=== PATIENT | male | born 1970 | race Caucasian/White ===

== ENCOUNTER → 2022-02-06 08:07 | Outpatient (CLI) | payer OTHER, SELFPAY ==
[2022-02-06 09:30] LABS: Hemoglobin A1C% w Est Avg Glu 11.4 % (4.0-6.0)
[2022-02-06 09:31] LABS: Hematocrit 45.1 % (41-53); Hemoglobin 15.7 g/dL (13.5-17.5); Mean Corpuscular HGB Conc 34.9 % (30-36); Mean Corpuscular Hemoglobin 29.8 PG (26-34); Mean Corpuscular Volume 85.2 fL (80-100); Platelet Count 203 X10^3/uL (150-400); Red Blood Cell Count 5.29 X10^6/uL (4.5-5.9); Red Cell Distribution Width 12.5 % (11.6-14.8); White Blood Cell Count 8.1 X10^3/uL (4.5-11.0)
[2022-02-06 09:54] LABS: Alanine Aminotransferase 21 IU/L (<50); Albumin Globulin Ratio 1.5 (1.0-2.8); Alkaline Phosphatase 84 U/L (38-126); Aspartate Aminotransferase 17 IU/L (17-59); BUN Creatinine Ratio 31.5 (6-22); Bilirubin Total 0.5 mg/dL (0.2-1.3); Blood Urea Nitrogen 23 mg/dL (9-20); Carbon Dioxide 30 mmol/L (22-32); Chloride 97 mmol/L (98-107); Cholesterol 181 mg/dL (140-199); Estimated Glomerular Filt Rate > 60 mL/min (>60); Globulin 2.6 g/dL (1.7-4.1); Glucose 309 mg/dL (70-100); HDL Cholesterol 40 mg/dL (40-60); HEMOLYSIS < 15 (0-50); LDL Cholesterol Calculated 122 mg/dL (<100); Potassium 4.3 mmol/L (3.4-5.1); Sodium 137 mmol/L (137-145); Total Protein 6.6 g/dL (6.3-8.2); Triglycerides 94 mg/dL (35-150)
[2022-02-06 09:57] LABS: Creatinine Urine Random 114.9 mg/dL
[2022-02-06 10:02] LABS: Microalbumi Creatinin Ratio Ur 99.2 ug/mg CR (<30); Microalbumin Urine Random 11.4 mg/dL (0-1.6)
[2022-02-06 10:15] LABS: TSH w/ Reflex to FT4 0.89 uIU/mL (0.47-4.68)
[2022-02-06 10:49] LABS: Neutrophils Absolute Manual 4536 /uL (3000-5900); Total Cells Counted 100
[2022-02-06 10:50] LABS: RBC Morphology Normal Morphology
== END ==
PROVIDERS: PCP Internal Medicine; Referring Provider Internal Medicine; Visit Provider Internal Medicine
DX: Z00.00 Encounter for general adult medical examination without abnormal findings (principal); E11.69 Type 2 diabetes mellitus with other specified complication; E78.2 Mixed hyperlipidemia; E78.5 Hyperlipidemia, unspecified; F41.1 Generalized anxiety disorder
CPT/HCPCS: 36415; 80053; 80061; 82043; 82570; 83036; 84153; 84443; 85025

== ENCOUNTER → 2022-04-07 09:39 | Outpatient (CLI) | payer OTHER, SELFPAY ==
[2022-04-07 11:33] LABS: COVID19 -Nasal RAPID Negative (Negative)
== END ==
PROVIDERS: PCP Internal Medicine; Visit Provider Surgery
DX: Z20.822 Contact with and (suspected) exposure to COVID-19 (principal); Z01.812 Encounter for preprocedural laboratory examination
CPT/HCPCS: 87635; C9803

== ENCOUNTER 2022-04-08 12:37 | Day surgery (SDC) | payer OTHER, SELFPAY ==
[2022-04-08 13:01] VITALS: BP 126/77; PULSE 96; RESP 16; TEMP 36.4; O2SAT 99; BMI 27.9
[2022-04-08] MEDS: LACTATED RINGERS 1,000 ML 200 ML IV (13:09)
--- NOTE | 2022-04-08 13:57 | PM.HP.1 ---
History of Present Illness History of Present Illness Date Patient Seen: 04/08/22 Time Patient Seen: 13:58 Chief complaint: SCREENING COLONOSCOPY Narrative: The patient presents for colorectal screening. They have never had any previous examination for such. No personal or family history of colon cancer. On further history denies any recent gastrointestinal symptoms. No nausea, vomiting, abdominal pain, loss of appetite, unexplained weight loss, change in bowel habits, diarrhea, constipation, melena, hematochezia, or bright red blood per rectum. Patient History Medical History (Updated 02/12/22 @ 08:04 by Chinedu Alvarez MD) Chronic low back pain DM type 2 with diabetic dyslipidemia Encounter for general adult medical examination without abnormal findings Generalized anxiety disorder Mixed hyperlipidemia Primary osteoarthritis involving multiple joints Tobacco use disorder Family & Social History Social History: household members significant other Tobacco & Substance use: Tobacco type cigarettes Smoking Status Current every day smoker alcohol intake current alcohol intake frequency a few times a month Substance Use Type does not use Meds Home Medications and Allergies Home Medications Medication Instructions Recorded Confirmed Type cholecalciferol (vitamin D3) 125 125 mcg PO DAILY 10/25/21 04/08/22 History mcg (5,000 unit) capsule mirtazapine 15 mg tablet 15 mg PO BEDTIME #90 tabs 10/25/21 04/08/22 Rx multivitamin 1 tab PO DAILY 10/25/21 04/08/22 History Glucometer #1 ea 02/12/22 02/12/22 Rx duloxetine 60 mg capsule,delayed 60 mg PO DAILY #90 caps 02/12/22 04/08/22 Rx release glucose test strip #100 ea 02/12/22 02/12/22 Rx insulin glargine 100 unit/mL (3 10 unit (0.1 mL) SUBCUT QPM #15 mL 02/12/22 04/08/22 Rx mL) subcutaneous pen (Basaglar KwikPen U-100 Insulin) meloxicam 15 mg tablet 15 mg PO DAILY #90 tabs 02/12/22 04/08/22 Rx rosuvastatin 10 mg tablet 10 mg PO DAILY #90 tabs 02/12/22 04/08/22 Rx methocarbamol 500 mg tablet 500 mg PO BID 04/08/22 04/08/22 History Allergies Allergy/AdvReac Type Severity Reaction Status Date / Time bee Allergy Severe swelling Uncoded 02/12/22 07:43 PENICILLIN Allergy Mild Rash Uncoded 02/12/22 07:43 metformin AdvReac Intermediate Cramping Uncoded 04/08/22 12:54 of the Muscles Exam Vital Signs (past 8 hours): - 04/08/22 13:01 Temperature 97.6 F Pulse Rate 96 H Respiratory Rate 16 Blood Pressure 126/77 Pulse Oximetry 99 Oxygen Delivery Method Room Air Oxygen Delivery Method Room Air Narrative Exam Narrative: General adult male alert oriented no acute distress Abdomen soft nontender nondistended Assessment & Plan Assessment & Plan narrative: The patient requires colorectal screening and colonoscopy is recommended. Technical details were discussed. Risks, benefits, alternatives explained. Risks including but not limited to myocardial infarction, aspiration, bleeding, pain, missed lesion, incomplete examination, need for further radiographic studies, colonic perforation, and need for major abdominal surgery were discussed. All questions were answered to their satisfaction, and they are in agreement with this plan. Time Spent With Patient Critical Care time: I spent a total of [] minutes of critical care time on this patient's care today; this time is exclusive of procedural time.
--- NOTE | 2022-04-08 13:59 | PM.OP.COLON ---
Operative Date/Time/Diagnoses Date of procedure: 04/08/22 Time of procedure: 13:59 Pre-op diagnosis: Colorectal screening Post-op diagnosis: same Procedure & Clinicians Study performed: Colonoscopy Same procedure as scheduled: Yes Indications: Screening Surgeon: Williams Lora Procedure Notes Procedure in detail: The history and physical was performed/updated and the patient is ASA class is 3. The procedure was discussed in detail with the patient. Potential risks complications including infection, bleeding, missed diagnosis, perforation, need for surgery, and were explained. Their questions were answered and informed consent was obtained. Patient was brought to the procedure room and placed standard monitoring equipment. The patient's vital signs were monitored continuously throughout the entire procedure. Prior to starting time-out was performed. The patient was placed in the left lateral recumbent position. Procedural sedation was administered by anesthesia. Examination began with a thorough inspection of the perianal area there was no evidence of fissures, fistulae, external hemorrhoids or cutaneous malignancy. The colonoscopy scope was then placed into the anal canal and was advanced to the cecum, which was identified by the ileocecal valve, the appendiceal orifice and the confluence of the taenia. The scope was then slowly withdrawn examining colon thoroughly in all directions, irrigating it of any residual stool. FINDINGS 1. Transverse colon-5 mm tubular adenomatous appearing polyp removed with cold snare. A despite extensive search polyp could not be located after was removed. The patient tolerated the procedure well. They will be discharged once criteria are met. The prep was of good/excellent quality. The withdrawl time was 12 minutes. Impression: Colonic polyp Post-procedure Recommendations: Colonoscopy in 5 years Disposition: same day surgery
[2022-04-08 14:41] VITALS: BP 101/64; PULSE 82; RESP 21; TEMP 37; O2SAT 98
[2022-04-08 14:46] VITALS: BP 109/64; PULSE 90; RESP 19; O2SAT 97
[2022-04-08 14:52] VITALS: BP 114/76; PULSE 89; RESP 15; O2SAT 97
[2022-04-08 14:54] VITALS: BP 114/66; PULSE 84; RESP 16; TEMP 36.7; O2SAT 98
== END 2022-04-08 15:20 | disposition home or self-care (01) ==
PROVIDERS: PCP Internal Medicine; Referring Provider Surgery; Visit Provider Surgery
PROC: 0DJD8ZZ Inspection of Lower Intestinal Tract, Via Natural or Artificial Opening Endoscopic (ICD-10-PCS; CPT 45378; principal; 2022-04-08 13:45)
DX: Z12.11 Encounter for screening for malignant neoplasm of colon (principal); K63.5 Polyp of colon
CPT/HCPCS: 45385; J2704; J3010

== ENCOUNTER → 2022-04-29 09:17 | Outpatient (CLI) | payer OTHER, SELFPAY ==
--- NOTE | 2022-05-01 09:55 | DIAB.MNT ---
Initial Diabetes Medical Nutrition Therapy Assessment Name: Dean Coon (Rubén) Date: 04/29/22 Time: [id number] Dx: Type II Diabetes Provider: Kim Montana presents today for initial visit. Endorses PMH of DM for about 20 years. +FH of DM with both parents. States he has made diet changes by cutting out most starches since seeing PCP. States he has historically had a very difficult time managing DM. Use to work with [employer] in [place]. States he was on multiple DM meds without getting BG under 150mg/dl fasting. Does not seem hopeful that numbers can be below this. Currently taking glargine 10u HS. Has h/o rxn to Metformin, muscle aches and fatigue. Has also tried actos, quick acting insulin. Denies most DM symptoms. Endorses good healing. However does reports reduced urination at night since starting insulin. Because he has limited symptoms of hyperglycemia, seems he is unclear about what the risks are of chronic hyperglycemia. This is especially true since he has had more symptoms with DM meds versus actual Dm. Reports switching to no sugar added ice cream. Avoids pasta and has reduced rice and corn portions. Long periods of fasting. Denies hunger during the day. Diet Recall: 730a: quiche or meat and veggies 530-545p: protein (fish/chx/beef/pork) with veggies, sometimes 1c brown rice mixed with quinoa 9p: no sugar added ice cream x 1c Beverages; 30-32oz water, sf mocha with 2% milk, diet pepsi x 20oz daily, sometimes sf gatorade. Anthropometrics: Ht: 6' Wt: 218# last PCP visit Physical Activity: No intentional exercise program. No plan to begin one. 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 reports [phone] steps per day or more 6-7 days per week with work. Self-Monitoring Blood Glucose: Checks FB-230s. no log book or meter for review. Reports a recent pc reading of 179mg/dl. Diabetes Medications: Glargine 10u HS Pertinent Labs: 02/2022 HgA1c 11.4% H ; LDL 122 H Past Medical History: (Last Updated 04/29/22 @ 15:35 by Chinedu Alvarez MD) Chronic low back pain DM type 2 with diabetic dyslipidemia Generalized anxiety disorder History of colonic polyps Mixed hyperlipidemia Primary osteoarthritis involving multiple joints Tobacco use disorder Nutrition Rx: Carbohydrates: Meal:45g Snack:15-30g Nutrition Diagnosis: - Inconsistent energy intake r/t long periods of fasting when working aeb diet recall - Nutrition and food related knowledge deficit r/t limited previous nutrition education aeb diet recall and pt report Intervention: This participant was very receptive. Provided appropriate educational handouts. Discussed the following topics: Completed intake assessment. Discussed barriers to care. Pathophysiology of T2DM HgA1c, its correlation to blood glucose numbers, and rationale for goal Importance of self-monitoring, how often, and when to check. Suggested checking at different times to evaluate meals Recommended servings for carbohydrates at meals and snacks Medication management: titration of insulin Role of physical activity and recommendations of [id number] steps per day Risks of hyperglycemia: heart health more specifically Created SMART goals for patient self-care and success. Goals: Discuss titration schedule with PCP, consider increasing by 2u q 2-3 days until BG <150 mg/dl Track BG and try checking some pc readings Follow-up: [facility] follow-up in 3-4 weeks Smita Alejandro RDN, [facility] Certified Diabetes Care and Run Boat Operator P: [phone] Thank you for this referral
== END ==
PROVIDERS: PCP Internal Medicine; Referring Provider Internal Medicine; Visit Provider Internal Medicine
DX: E11.9 Type 2 diabetes mellitus without complications (principal); Z79.4 Long term (current) use of insulin; Z71.3 Dietary counseling and surveillance
CPT/HCPCS: 97802

== ENCOUNTER → 2022-05-20 15:23 | Outpatient (CLI) | payer OTHER, SELFPAY ==
--- NOTE | 2022-06-03 07:13 | DIAB.FU ---
Addendum entered by Smita Alejandro 06/04/22 10:31: Phone check-in: up to 32u insulin and most FBG in the 150s. Plans to increase another 2u tonight. Encouraged continued titration until FBG at least under 150mg/dl. RDN follow-up in one month. Original Note: Follow-up Diabetes Education Assessment Name: Dean Coon (Rubén) Date: 05/20/22 Time: 330-430a Dx: Type II Diabetes Rubén presents for diabetes follow-up. Continues on moderate to low carb diet. Continues to have hyperglycemia. Following titration schedule for glargine and at 20-22u HS. Room for continued titration. Reports normal BM with low carb diet. On fiber supplement and incorporating veggies per report. Still having long periods of fasting during the day. Prefers this with work schedule. Has noticed improved frequent urination at night. Physical Activity: Active with work. No intentional exercise. use to work out at local gym twice per week with bike and resistance training. Stage of change considerations. Self-Monitoring Blood Glucose: no log book today but reports FBG now <230mg/dl. Frequently FBG are 190-220mg/dl. pc readings may range from 170-280 depending on carb intake. Diabetes Medications: Glargine 20-22u HS Pertinent Labs: 02/2022 HgA1c 11.4% H ; LDL 122 H Past Medical History: (Last Updated 04/29/22 @ 15:35 by Chinedu Alvaerz MD) Chronic low back pain DM type 2 with diabetic dyslipidemia Generalized anxiety disorder History of colonic polyps Mixed hyperlipidemia Primary osteoarthritis involving multiple joints Tobacco use disorder Intervention: This participant was very receptive. Provided appropriate educational handouts. Discussed the following topics: Recent blood sugar results and trends Medication management and cont titration, considerations for weight based calculations Review of general nutrition recommendations and current intake Physical activity plan history and considerations s/s of hyperglycemia, including polyuria Created SMART goals for patient self-care and success. Goals: Discuss titration schedule with PCP, consider increasing by 2u q 2-3 days until BG <150 mg/dl- met Track BG and try checking some pc readings- met Increase insulin tonight by 4u and cont titration schedule prn until <150mg/dl FBG- new Follow-up: RDN [facility] follow-up call in 2 weeks. Rubén would like to f/u in July. Will review BG over the phone and advise on titration to manage hyperglycemia until that time. Smita Alejandro RDN, [facility] Certified Diabetes Care and [employer]er P: [phone] Thank you for this referral
== END ==
PROVIDERS: PCP Internal Medicine; Referring Provider Internal Medicine; Visit Provider Internal Medicine
DX: E11.9 Type 2 diabetes mellitus without complications (principal); Z79.4 Long term (current) use of insulin; Z71.3 Dietary counseling and surveillance
CPT/HCPCS: G0108

== ENCOUNTER → 2022-07-24 14:58 | Outpatient (CLI) | payer OTHER, SELFPAY ==
--- NOTE | 2022-07-29 15:11 | DIAB.FU ---
Follow-up Diabetes Education Assessment Name: Dean Coon (Rubén) Date: 07/24/22 Time: 305-420p Dx: Type II Diabetes Provider: Kim Montana presents for DM follow-up. Reports continued elevated BG in the morning, higher than report from last phone call. Currently on 40u glargine at night and reports FBG of 160-180mg/dl. Given weight in kg, it would be appropriate to go up to about 50u before considering additional agents. Will message provider to confirm. Reports wt of 205-217#. Using 95kg x 0.5= 48units insulin. Reports continued low to moderate carb diet. Sometimes will have high carb diet, does not check postprandial and notices lower FBG. This could be a result of higher carb intake inhibiting overnight gluconeogenesis, impacting FBG. Open to CGM trial or rx. Encouraged trial first. Would be helpful to see trends, especially during the day. 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 No program for management but feels he is able to cope with current stressors. Physical Activity: No intentional exercise. Movement with work [phone] steps per day estimated. Self-Monitoring Blood Glucose: Forgot meter. Reports recent meter error messaging. Confirms he is providing enough blood sample. Asked that he bring his meter in next visit. Reports checking FB-180mg/dl most days. Diabetes Medications: Glargine 40u HS Pertinent Labs: 02/2022 HgA1c 11.4% H ; LDL 122 H Past Medical History: (Last Updated 04/29/22 @ 15:35 by Chinedu Alvarez MD) Chronic low back pain DM type 2 with diabetic dyslipidemia Generalized anxiety disorder History of colonic polyps Mixed hyperlipidemia Primary osteoarthritis involving multiple joints Tobacco use disorder Intervention: This participant was very receptive. Provided appropriate educational handouts. Discussed the following topics: Recent blood sugar results and trends Medication management and insulin titration based on weight Potential for CGM Review of general nutrition recommendations and current intake Gluconeogenesis and FBG Physical activity and impact on blood sugars Stress management and impact on BG Created SMART goals for patient self-care and success. Goals: Increase insulin tonight by 4u and cont titration schedule prn until <150mg/dl FBG- met and in progress Keep a food journal and BG log- new Follow-up: [facility] follow-up in September per pt request. He would like to come back after PCP appt end of August with new lab work. Will contact for CGM trial prn. Smita Alejandro RDN, [facility] Certified Diabetes Care and Missile Control Pilot P: [phone] Thank you for this referral
== END ==
PROVIDERS: PCP Internal Medicine; Referring Provider Internal Medicine; Visit Provider Internal Medicine
DX: E11.9 Type 2 diabetes mellitus without complications (principal); Z79.4 Long term (current) use of insulin; Z71.3 Dietary counseling and surveillance
CPT/HCPCS: G0108

== ENCOUNTER → 2022-08-15 10:57 | Outpatient (CLI) | payer OTHER, SELFPAY ==
--- NOTE | 2022-08-15 11:08 | DIAB.FU ---
Follow-up Diabetes Education Assessment Name: Dean Coon (Rubén) Date: 08/15/22 Time: 11a Dx: Type II Diabetes Today we placed a trial CGM. Rubén is using a Dexcom CGM. Set lows to 70mg/dl and highs to 250mg/dl. Reviewed how CGM system works, when to check BG with meter. States he is currently taking 48-49u of insulin at night and Bg are finally under 150mg/dl, ranging from 129-150mg/dl. States he skipped dinner the other night and BG was 100mg/dl fasting. Past Medical History: (Last Updated 04/29/22 @ 15:35 by Chinedu Alvarez MD) Chronic low back pain DM type 2 with diabetic dyslipidemia Generalized anxiety disorder History of colonic polyps Mixed hyperlipidemia Primary osteoarthritis involving multiple joints Tobacco use disorder Intervention: This participant was very receptive. Provided appropriate educational handouts. Discussed the following topics: Recent blood sugar results and trends Medication management Review of CGM use and precautions Goals: Keep a food journal and BG log- new Trial CGM system- new Follow-up: [facility] follow-up May for 1:1 visit. SHANNAN/ADOLFO will print and send PCP CGM reports prior to next visit. Smita Alejandro RDN, [facility] Certified Diabetes Care and Scrap Crane Operator P: [phone] Thank you for this referral
== END ==
PROVIDERS: Absent Provider Internal Medicine; Family Provider Internal Medicine; PCP Internal Medicine; Referring Provider Internal Medicine; Visit Provider Internal Medicine
DX: E11.9 Type 2 diabetes mellitus without complications (principal); Z79.4 Long term (current) use of insulin; Z71.3 Dietary counseling and surveillance
CPT/HCPCS: G0108

== ENCOUNTER → 2022-09-02 14:52 | Outpatient (CLI) | payer OTHER, SELFPAY ==
--- NOTE | 2022-09-04 09:48 | DIAB.MNTFU ---
Follow-up Diabetes Medical Nutrition Therapy Assessment Name: Dean Coon Date: 09/02/22 Time: 305-4p Dx: Type II Diabetes Rubén presents for diabetes follow-up. States he noticed certain foods impacting CGM results, however according to reports he is experiencing hyperglycemia most of the day. States as soon as he eats or drinks coffee, blood sugars start to go up. Reports coffee with milk and chocolate mix resulting in about 25g CHO per serving x 2 servings per day. Not particularly high in carb, but certainly seemed to impact BG. Has switched from milk to cream and almond milk. By the look of CGM results seems Rubén may need additional medication coverage, possibly mealtime insulin, which he has been on before. Likely was not on enough insulin previously since he states it was not effective. When discussing potential for further medication coverage prn, he reports he prefers to add insulin versus another medication with SE, ie GLP1RA. Started Jardiance as rx'd by provider. CGM trial finished. Open to personal CGM. RD to coordinate with PCP for rx. Reports provider discussed smoking cessation. Reports he smokes a pack per day but usually does not finish a cigarette. States he smokes when trying to problem solve for work. Stage of change seems to be between precontemplative and contemplative. Diet Recall: B: coffee with 12oz milk and 1 TBS roger mix (23g CHO), meat, rice x 1c, veg (45g CHO, total 68g CHO) OR coffee with cream/almond milk, roger mix with meat, rice, veg (53g CHO) L: coffee with milk or cream/almond milk and roger mix (8-23g CHO) D: pro, rice, veg (45-60g CHO) Anthropometrics: Ht: 6' Wt: 220# reported Physical Activity: no program. Active with work per report. Self-Monitoring Blood Glucose: Less checks since CGM d/c. Reports this morning FBG was 150mg/dl. Per reports BG mostly elevated, but seem to improve late evening and into dietary manager. 2 week CGM report 213mg/dl average TIR 28% very high 44% high 27% in range <1% low <1% very low Diabetes Medications: Jardiance 25mg Glargine 50u HS Pertinent Labs: 02/2022 HgA1c 11.4% H ; LDL 122 H Past Medical History: (Last Updated 08/29/22 @ 08:39 by Chinedu Alvarez MD) Chronic low back pain DM type 2 with diabetic dyslipidemia Generalized anxiety disorder History of colonic polyps Mixed hyperlipidemia Persistent proteinuria associated with type 2 diabetes mellitus Primary osteoarthritis involving multiple joints Tobacco use disorder Nutrition Rx: Carbohydrates: Meal:30-45g Snack:15-30g Nutrition Diagnosis: - Inconsistent energy intake r/t long periods of fasting when working aeb diet recall - Nutrition and food related knowledge deficit r/t limited label reading education aeb pt knowledge of CHO in coffee Intervention: This participant was very receptive. Provided appropriate educational handouts. Discussed the following topics: Blood sugar review and trends. Medication management: SE and precautions of different DM meds, potential for mealtime insulin if jardiance cannot reduce BG into goal CGM: moving forward with personal CGM Label reading Carbs recs Smoking cessation and impact on [place]/Stroke risk with Dm Created SMART goals for patient self-care and success. Goals: Keep a food journal and BG log- not met Trial CGM system- met Check FBG- new Avoid milk in coffee at this time- new Follow-up: [facility] follow-up in 4 weeks. SHANNAN/ADOLFO will coordinate with provider regarding personal CGM and our conversation regarding DM meds. Smita Alejandro RDN, [facility] Certified Diabetes Care and Security Architect P: [phone] Thank you for this referral
== END ==
LOC: DIET 14:53
PROVIDERS: Family Provider Internal Medicine; PCP Internal Medicine; Referring Provider Internal Medicine; Visit Provider Internal Medicine
DX: E11.9 Type 2 diabetes mellitus without complications (principal); Z71.3 Dietary counseling and surveillance; Z79.84 Long term (current) use of oral hypoglycemic drugs; Z79.4 Long term (current) use of insulin
CPT/HCPCS: 97803

== ENCOUNTER 2022-09-07 08:19 | Emergency (ER) | payer OTHER, SELFPAY ==
[2022-09-07] VITALS (10 sets, daily range): BP systolic 129–170; BP diastolic 71–86; PULSE 81–93; RESP 18; TEMP 36.6; O2SAT 96–99; BMI 29.8
--- NOTE | 2022-09-07 08:31 | ED_ITS ---
HPI - Extremity Problem General Chief complaint: Extremity Problem,Nontraumatic Stated complaint: rt hand swelling, shoulder pain Time Seen by Provider: 09/07/22 08:26 Source: patient, family, RN notes reviewed and old records reviewed History of Present Illness HPI Narrative: This is a 51-year-old male with insulin-dependent diabetes, hypertension dyslipidemia with acute on chronic right shoulder pain. Patient states he had surgery about 13 years ago for rotator cuff and then was found to have a PICC muscle tear which was not repaired. He states during his surgery there was some sort of vascular issue the vein was not working properly he states that he was seen by the vascular surgeon immediately postoperatively, he is unsure what they did to him but states they came into the room but did not require surgery or blood thinners afterwards. He states he was told it was the vein or the blood going back to his arm and that the arteries or the blood going to his arm was fine. Patient states he is had increasing pain for the last 3 weeks particularly with movement. He describes it as being over the anterior biceps, AC joint posterior shoulder running down his shoulder and radiating towards his distal arm. He states he woke up 2 days ago with some numbness and tingling of fingers 1 2 and 3 radiating down his arm he states that slowly improved but still feels a little bit different. Patient states it feels better when he lays on it than when he lays on his other side. 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 He is on Soma and meloxicam daily for the past several months. He saw his primary care physician about a week ago was prescribed voltBILLY uriarte and contacted him he was having trouble sleeping from pain this morning and was told to come in to be seen. He has had his meloxicam today as well as a dose of Tylenol. Denies any other prior surgeries. No known drug allergies. Does use tobacco daily, occasional alcohol, no illicit. He does not recall a very traumatic injuries recently. Accompanied by his . Related Data Home Medications Medication Instructions Recorded Confirmed cholecalciferol (vitamin D3) 125 125 mcg PO DAILY 10/25/21 08/29/22 mcg (5,000 unit) capsule multivitamin 1 tab PO DAILY 10/25/21 08/29/22 blood sugar diagnostic (OneTouch #10 ea 08/29/22 08/29/22 Verio test strips) insulin glargine 100 unit/mL (3 50 unit SUBCUT QPM 08/29/22 08/29/22 mL) subcutaneous pen (Basaglar KwikPen U-100 Insulin) Previous Rx's Medication Instructions Recorded mirtazapine 15 mg tablet 15 mg PO BEDTIME #90 tabs 10/25/21 Glucometer #1 ea 02/12/22 duloxetine 60 mg capsule,delayed 60 mg PO DAILY #90 caps 02/12/22 release meloxicam 15 mg tablet 15 mg PO DAILY #90 tabs 02/12/22 rosuvastatin 10 mg tablet 10 mg PO DAILY #90 tabs 02/12/22 sildenafil 50 mg tablet 50 mg PO DAILY PRN sexual activity 05/19/22 #30 tabs methocarbamol 500 mg tablet See Rx Instructions .Route 07/24/22 .COMPLEX #60 tabs empagliflozin 25 mg tablet 25 mg PO DAILY #90 tabs 08/29/22 (Jardiance) pen needle, diabetic, safety 31 #100 ea 08/29/22 gauge x 5/16 blood-glucose meter,continuous #1 ea 09/04/22 (Dexcom G7 Servicenow Administrator Developer) oxycodone 5 mg tablet 5 mg PO Q6H PRN pain #14 tabs 09/07/22 Allergies Allergy/AdvReac Type Severity Reaction Status Date / Time Penicillins Allergy Mild Rash Verified 09/07/22 09:01 metformin AdvReac Intermediate Muscle Verified 09/07/22 09:01 Cramps bee Allergy Severe swelling Uncoded 09/07/22 08:34 Review of Systems Review of Systems ROS Unobtainable: All systems reviewed & are unremarkable except as noted in HPI and below Patient History Medical History Chronic low back pain DM type 2 with diabetic dyslipidemia Generalized anxiety disorder History of colonic polyps Mixed hyperlipidemia Persistent proteinuria associated with type 2 diabetes mellitus Primary osteoarthritis involving multiple joints Tobacco use disorder Social History details: [place], 3 daughters, 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 HEENT: Head normocephalic, atraumatic, EOMI, pupils reactive, face symmetric, moist mucous membranes NECK: Supple, full range of motion CARDIOVASCULAR: Regular rate and rhythm without murmurs, rubs or gallops. RESPIRATORY: Breath sounds equal bilaterally, no wheezes rales or rhonchi. ABDOMEN: Soft, nontender. Normoactive bowel sounds all 4 quadrants. No guarding or rebound, rigidity, no mass : No CVA tenderness EXTREMITIES: Patient has some decreased with range of motion his shoulder full range of motion when shoulder is held low but has increased pain with flexion, extension and abduction, patient has normal adduction. 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 Patient has sensation to light touch throughout all 5 fingers and the arm. Patient's cap refills less than 2 seconds in all 5 fingers. 2+ radial pulses bilaterally. No discoloration such as erythema, warmth, cyanosis or pallor appreciated, no clubbing or edema. Neurovascularly intact. No cervical spine tenderness, full range of motion at the neck. NEUROLOGICAL: Cranial nerves II through XII grossly intact. Moving all extremities SKIN: Warm, dry, no petechiae, no rashes or lesions. Initial Vital Signs Initial Vital Signs: Vital Signs Pulse Rate 92 H 09/07/22 08:28 Pulse Oximetry 98 09/07/22 08:28 Course Orders Ordered: Discontinued Medications Oxycodone HCl (Oxycodone Ir 5 Mg Tablet) 5 mg PO NOW ONE Stop: 09/07/22 08:57 Last Admin: 09/07/22 09:30 Dose: 5 mg Documented By: NR Vital Signs Vital signs: Vital Signs - 8 hr 09/07/22 08:34 09/07/22 08:28 09/07/22 08:29 Temperature 97.8 F Pulse Rate 93 H 92 H Respiratory Rate 18 Blood Pressure 170/86 H 170/86 H Pulse Oximetry 99 98 Oxygen Delivery Method Room Air 09/07/22 08:29 09/07/22 08:30 09/07/22 08:31 Temperature Pulse Rate 90 88 Respiratory Rate Blood Pressure 152/74 H Pulse Oximetry 99 99 Oxygen Delivery Method 09/07/22 08:31 09/07/22 09:00 09/07/22 09:00 Temperature Pulse Rate 87 86 Respiratory Rate Blood Pressure 140/76 Pulse Oximetry 99 99 Oxygen Delivery Method 09/07/22 09:30 09/07/22 09:30 09/07/22 09:59 Temperature Pulse Rate 82 84 Respiratory Rate Blood Pressure 135/71 Pulse Oximetry 96 97 Oxygen Delivery Method 09/07/22 10:00 Temperature Pulse Rate Respiratory Rate Blood Pressure 148/78 H Pulse Oximetry Oxygen Delivery Method MDM - Extremity (Nontraumatic) Imaging Data Extremity x-ray #1: Radiologist's Impression: [address] [address] XRay Report Signed Patient: Dean Coon MR#: [id number] : 1970 Acct:[id number] Age/Sex: 51 / M Date of Service: 09/07/22 Loc: ED Accession Number: [id number] ?? Procedure: XR shoulder RT min 2V Ordering Provider: Marion Martin D.O. PROCEDURE:? XR SHOULDER RT MIN 2V ? INDICATIONS:? right shoulder pain, acute on chronic ? TECHNIQUE:? 3 views of the shoulder were acquired.? ? COMPARISON:? None. ? FINDINGS:? ? Bones:? Clavicular ORIF.? Hardware is intact without hardware fracture or periprosthetic lucency to suggest loosening.? There is good anatomic alignment.? Acromioclav icular narrowing.? No suspicious bony lesions.? Visualized ribs appear intact.? ? Soft tissues:? No suspicious soft tissue calcifications.? ? IMPRESSION:? No visualized acute fracture or dislocation. However, if clinical concern and/or pain persist, short interval imaging followup in 7-10 days is recommended, as occult injury cannot be definitively excluded. ? ? Dictated by: Rachna Bellamy M.D. on 09/07/2022 at 9:22 ? ? Approved by: Rachna Bellamy M.D. on 09/07/2022 at 9:23?? US - DVT: Radiologist's Impression: [address] [address] Ultrasound Report Signed Patient: Dean Coon MR#: [id number] : 1970 Acct:[id number] Age/Sex: 51 / M Date of Service: 09/07/22 Loc: ED Accession Number: [id number] ?? Procedure: US periph venous up extrem rt Ordering Provider: Marion Martin D.O. PROCEDURE:? US PERIPH VENOUS UP EXTREM RT ? INDICATIONS:? PAIN ? TECHNIQUE:? Real-time imaging, as well as color and pulse Doppler interrogation, was performed of the right upper extremity deep veins from the inferior neck to the antecubital fossa.? ? COMPARISON:? None. ? FINDINGS:? The internal jugular vein, visualized portions of the subclavian vein, axillary, and brachial veins are free of intraluminal thrombus.? Where physically possible, the veins are normally compressible.? Color and pulse Doppler demonstrate normal intraluminal flow, with expected phasicity and pulsatility.? Additional scanning of the cephalic and basilic veins of the superficial system demonstrate normal compressibility, without thrombus.? ? IMPRESSION:? No DVT identified within the right upper extremity ? ? Dictated by: Wayne Martins M.D. on 09/07/2022 at 9:11 ? ? Approved by: Wayne Martins M.D. on 09/07/2022 at 9:12?? MDM Narrative Medical decision making narrative: This is a 51-year-old male with acute on chronic shoulder pain. Patient has had remote history of rotator cuff repair and had some kind of vascular issue does not sound like he had surgery on whatever vascular issue he had he states does not think it was a blood clot he does not know exactly what. He does not know exactly what they did. He was not discharged home on any blood thinners or other medications and he states they did cut him or do any other obvious interventions but they brought a machine into the room and looked at it with the vascular surgeon. Patient most likely has acute on chronic musculoskeletal issues sounds like he has some nerve impingement maybe involving the brachial plexus he does not have any obvious swelling, edema or skin changes but because of his history DVT ultrasound was ordered. Shoulder x-ray for evaluation. GBS negative. X-ray does not show any acute changes to the bone discussed with patient will increase his pain management he is on an NSAID daily with meloxicam. Discussed PT maybe helpful but he states he had been through this in the past and does not feel it will help much. Patient to follow up with primary care and/or orthopedic surgery has will likely need follow-up with them as well, was given referral. Patient prefers local over his prior orthopedic surgery team. Discussed he may end up benefitting from an MRI as an outpatient. Discharge Plan Departure Patient Disposition: Home Clinical Impression: Pain in right shoulder, Radiculopathy of arm Activity Restrictions/Additional Instructions: Follow-up with your physician for recheck, you may need to follow-up with orthopedic surgery. You can also lead surgery on Thursday to set up follow-up either with your prior orthopedic surgeon or referral to the group included below. Please continue your home medications including your meloxicam. You can take Tylenol up to a 1000 mg every 6 hours as needed with this medication. You may take 1-2 tablets of oxycodone every 6 hours as needed for breakthrough pain. This medication can make you sleepy do not drive, perform hazardous activities or make any major decisions while taking it. This medication will make you constipated please take a stool softener once to twice daily until s tools are soft and regular. Prescription sent to [facility] in [place]. 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 Prescriptions: New oxycodone 5 mg tablet 5 mg PO Q6H PRN (Reason: pain) Qty: 14 0RF Rx Instructions: You may take 1-2 tablets every 6 hours as needed for pain. No Action sildenafil 50 mg tablet 50 mg PO DAILY PRN (Reason: sexual activity) Qty: 30 5RF Rx Instructions: administer 30 minutes to 4 hours before activity methocarbamol 500 mg tablet See Rx Instructions .ROUTE .COMPLEX Qty: 60 5RF Dose Instruction: TAKE 1 TABLET BY MOUTH FOUR TIMES DAILY NEEDED FOR SPASMS Rx Instructions: TAKE 1 TABLET BY MOUTH FOUR TIMES DAILY NEEDED FOR SPASMS (DME) Dexcom G7 Servicenow Administrator Developer Misc See Rx Instructions .Route Qty: 1 0RF Rx Instructions: As directed (DME) OneTouch Verio test strips Strip See Rx Instructions .ROUTE .MEDSUPPLY Qty: 10 Rx Instructions: As directed once daily to check blood glucose insulin glargine [Basaglar KwikPen U-100 Insulin] 100 unit/mL (3 mL) insulin pen 50 unit SUBCUT QPM Jardiance 25 mg tablet 25 mg PO DAILY Qty: 90 3RF (DME) pen needle, diabetic, safety 31 gauge x 5/16 needle See Rx Instructions .Route Qty: 100 3RF Rx Instructions: As directed to use for insulin injection daily multivitamin Tablet 1 tab PO DAILY cholecalciferol (vitamin D3) 125 mcg (5,000 unit) capsule 125 mcg PO DAILY mirtazapine 15 mg tablet 15 mg PO BEDTIME Qty: 90 3RF duloxetine 60 mg capsule,delayed release(DR/EC) 60 mg PO DAILY Qty: 90 3RF meloxicam 15 mg tablet 15 mg PO DAILY Qty: 90 3RF rosuvastatin 10 mg tablet 10 mg PO DAILY Qty: 90 3RF (DME) Glucometer See Rx Instructions .Route .MEDSUPPLY Qty: 1 0RF Rx Instructions: As directed Referrals: Evie Choe MD [Physician] - Chinedu Alvarez MD [Primary Care Provider] - Stand Alone Forms: Patient Portal/API
--- NOTE | 2022-09-07 08:56 | DI.RAD.S_ITS ---
PROCEDURE: XR SHOULDER RT MIN 2V INDICATIONS: right shoulder pain, acute on chronic TECHNIQUE: 3 views of the shoulder were acquired. COMPARISON: None. FINDINGS: Bones: Clavicular ORIF. Hardware is intact without hardware fracture or periprosthetic lucency to suggest loosening. There is good anatomic alignment. Acromioclavicular narrowing. No suspicious bony lesions. Visualized ribs appear intact. Soft tissues: No suspicious soft tissue calcifications. IMPRESSION: No visualized acute fracture or dislocation. However, if clinical concern and/or pain persist, short interval imaging followup in 7-10 days is recommended, as occult injury cannot be definitively excluded. Dictated by: Rachna Bellamy M.D. on 09/07/2022 at 9:22 Approved by: Rachna Bellamy M.D. on 09/07/2022 at 9:23
--- NOTE | 2022-09-07 08:56 | DI.US.S_ITS ---
PROCEDURE: US PERIPH VENOUS UP EXTREM RT INDICATIONS: PAIN TECHNIQUE: Real-time imaging, as well as color and pulse Doppler interrogation, was performed of the right upper extremity deep veins from the inferior neck to the antecubital fossa. COMPARISON: None. FINDINGS: The internal jugular vein, visualized portions of the subclavian vein, axillary, and brachial veins are free of intraluminal thrombus. Where physically possible, the veins are normally compressible. Color and pulse Doppler demonstrate normal intraluminal flow, with expected phasicity and pulsatility. Additional scanning of the cephalic and basilic veins of the superficial system demonstrate normal compressibility, without thrombus. IMPRESSION: No DVT identified within the right upper extremity Dictated by: Wayne Martins M.D. on 09/07/2022 at 9:11 Approved by: Wayne Martins M.D. on 09/07/2022 at 9:12
[2022-09-07] MEDS: OXYCODONE IR 5 MG TABLET PO (09:30)
== END 2022-09-07 10:51 | disposition home or self-care (01) ==
PROVIDERS: Emergency Provider Emergency Medicine; Family Provider Internal Medicine; PCP Internal Medicine
DX: M25.511 Pain in right shoulder (principal); M54.10 Radiculopathy, site unspecified
CPT/HCPCS: 73030; 93971; 99283; 99284

== ENCOUNTER → 2022-09-30 15:30 | Outpatient (CLI) | payer OTHER, SELFPAY ==
--- NOTE | 2022-10-03 17:08 | DIAB.FU ---
Follow-up Diabetes Education Assessment Name: Dean Coon Date: 09/30/22 Time: 147-469p Dx: Type II Diabetes Provider: Kim Montana presents for Dm education follow-up. Continues to wear CGM, and results indicate consistent hyperglycemia after meals, even lower carb meals. taking 50u Glargine and 25mg Jardiance. FBG often under 150mg/dl, however after eating any carbohydrates number increase to 300-400mg/dl. He has h/o multiple insulin injections per day. He is open to adding mealtime insulin if provider agrees. States he would prefer insulin over other meds with side effects. RD will message provider for guidance and share CGM report results. Rubén thinks when he eats protein alone his BG is better, however there are certain carb foods he is not wanting to give up, ie coffee with flavoring resulting in 25g CHO per serving. Reports foot ulcer, likely r/t hyperglycemia. States he doesn't understand why he has this ulcer despite improved BG. BG continue above goal despite improvement. Self-Monitoring Blood Glucose: Improved time in range, however still below goal of 70% in range. Today: 2 week CGM report 206mg/dl average TIR 25% very high 34% high 40% in range <1% low <0% very low Last visit: 2 week CGM report 213mg/dl average TIR 28% very high 44% high 27% in range <1% low <1% very low Diabetes Medications: Jardiance 25mg Glargine 50u HS Pertinent Labs: 02/2022 HgA1c 11.4% H ; LDL 122 H Past Medical History: (Last Updated 09/26/22 @ 16:44 by Chinedu Alvarez MD) Chronic low back pain Diabetic ulcer of toe associated with type 2 diabetes mellitus DM type 2 with diabetic dyslipidemia Generalized anxiety disorder History of colonic polyps Mixed hyperlipidemia Persistent proteinuria associated with type 2 diabetes mellitus Primary osteoarthritis involving multiple joints Tobacco use disorder Intervention: This participant was very receptive. Provided appropriate educational handouts. Discussed the following topics: Recent blood sugar results and trends Time in range goal Medication management: different DM med options, insulin actions and indications Review of general nutrition recommendations and current intake Impact of persistent hyperglycemia and complications Created SMART goals for patient self-care and success. Goals: Check FBG- d/c due to using CGM Avoid milk in coffee at this time- met Choose low carb options at this time- new Follow-up: [facility] follow-up in 2-[address]/ADOLFO to coordinate with provider regarding CGM results. Smita Alejandro RDN, ADOLFO Certified Diabetes Care and Warehouser P: [phone] Thank you for this referral
== END ==
PROVIDERS: Family Provider Internal Medicine; PCP Internal Medicine; Referring Provider Internal Medicine; Visit Provider Internal Medicine
DX: E11.9 Type 2 diabetes mellitus without complications (principal); Z79.4 Long term (current) use of insulin; Z79.84 Long term (current) use of oral hypoglycemic drugs; Z71.3 Dietary counseling and surveillance
CPT/HCPCS: G0108

== ENCOUNTER → 2022-10-04 09:45 | Outpatient (CLI) | payer OTHER, SELFPAY ==
--- NOTE | 2022-10-04 09:46 | DI.MRI.S_ITS ---
PROCEDURE: MR SHOULDER RT WO CON INDICATIONS: right shoulder pain TECHNIQUE: Noncontrast oblique coronal T2 fast spin echo with fat saturation, oblique sagittal T1 spin echo and T2 fast spin echo with fat saturation, axial T1 spin echo and T2 fast spin echo with fat saturation through the shoulder. COMPARISON: [facility], CR, XR SHOULDER RT MIN 2V, 09/07/2022, 8:56. FINDINGS: Image quality: Images are mildly degraded by metal artifact related to distal clavicular orthopedic hardware. Diagnostic information is obtained. Rotator cuff: Low-grade partial intrasubstance tearing of the supraspinatus tendon is seen at the distal insertion measuring 5 mm in anterior-posterior dimension superimposed on chronic tendinosis. There is also low-grade partial articular sided tearing of the infraspinatus tendon at the mid to posterior footprint superimposed on chronic tendinosis. The teres minor tendon is intact. Subscapularis tendon demonstrates mild tendinosis and low-grade intrasubstance tearing at the distal insertion. There is no significant rotator cuff muscle atrophy. Bones and bursae: Postsurgical changes are seen from prior internal fixation of the distal clavicle with associated metal artifact that mildly obscures adjacent structures. No acute trabecular bone injury or fracture. Glenohumeral articular cartilages are not well evaluated on this exam. There is mild degenerative spurring in the glenoid rim. Moderate degenerative changes are seen at the acromioclavicular joint. A trace amount of subacromial/subdeltoid bursal fluid is present. No significant glenohumeral joint effusion. Capsule and soft tissues: Nondisplaced tearing of the posterosuperior labrum with a lobular paralabral cyst extending medially over the glenoid rim to the region of the suprascapular notch. The cyst measures approximately the 7 x 6 x 30 mm. No denervation changes are seen within the supraspinatus or infraspinatus muscle. The proximal biceps long head tendon is intact. There is partial effacement of the normal fat signal in the rotator interval. Mild thickening of the anterior band of the inferior glenohumeral ligament is noted. IMPRESSION: 1. Nondisplaced tearing of the posterosuperior labrum with a lobular paralabral cyst extending medially over the glenoid rim to the suprascapular notch. No signs of acute or chronic denervation changes within the supraspinatus or infraspinatus muscles. 2. Low-grade partial intrasubstance tearing of the supraspinatus tendon at the distal insertion superimposed on moderate tendinosis. 3. Low-grade partial articular sided tearing of the infraspinatus tendon at the mid to posterior insertion superimposed on moderate tendinosis. 4. Mild tendinosis and low-grade partial intrasubstance tearing of the subscapularis tendon at the distal insertion. 5. Moderate acromioclavicular joint osteoarthrosis. Postsurgical changes are seen in the distal clavicle with associated metal artifact that mildly obscures adjacent structures. 6. Partial effacement of the rotator interval fat and mild thickening of the inferior glenohumeral ligament are nonspecific, but can be seen in the setting of the clinical syndrome of adhesive capsulitis. Approved by: Marcos Lozano M.D. on 10/06/2022 at 8:45
== END ==
PROVIDERS: Family Provider Internal Medicine; PCP Internal Medicine; Referring Provider Internal Medicine; Visit Provider Internal Medicine
DX: S43.491A Other sprain of right shoulder joint, initial encounter (principal); M75.111 Incomplete rotator cuff tear or rupture of right shoulder, not specified as traumatic; S46.811A Strain of other muscles, fascia and tendons at shoulder and upper arm level, right arm, initial encounter; M19.011 Primary osteoarthritis, right shoulder
CPT/HCPCS: 73221

== ENCOUNTER 2022-10-06 19:06 | Inpatient (IN) | payer OTHER, SELFPAY ==
[2022-10-06 19:20] VITALS: BP 154/77; PULSE 89; RESP 16; TEMP 37; O2SAT 99; BMI 29.0
--- NOTE | 2022-10-06 19:47 | DI.RAD.S_ITS ---
PROCEDURE: XR FOOT RT MIN 3V INDICATIONS: diabetic foot infection, concern for osteomyelitis TECHNIQUE: 3 views of the foot were acquired. COMPARISON: None. FINDINGS: Bones: No fractures or dislocations. No discrete bony erosions or periosteal reaction. No suspicious bony lesions. Soft tissues: There is soft tissue swelling of the great toe. No suspicious soft tissue calcifications. No discrete soft tissue gas. IMPRESSION: 1. No definite radiographic evidence of osteomyelitis. If clinical concern persists, further evaluation may be obtained with MRI. Dictated by: Curtis Alejandre M.D. on 10/06/2022 at 20:32 Approved by: Curtis Alejandre M.D. on 10/06/2022 at 20:33
[2022-10-06 20:29] LABS: Add Manual Diff / Slide Review NO; Basophils Absolute Auto 100 /uL (0-100); Basophils Percent Auto 0.7 % (0-2); Eosinophils Absolute Auto 300 /uL (0-450); Eosinophils Percent Auto 2.8 % (2-4); Hematocrit 42.8 % (41-53); Hemoglobin 14.9 g/dL (13.5-17.5); Lymphocytes Absolute Auto 2100 /uL (1100-4500); Lymphocytes Percent Auto 18.8 % (25-40); Mean Corpuscular HGB Conc 34.9 % (30-36); Mean Corpuscular Hemoglobin 29.8 PG (26-34); Mean Corpuscular Volume 85.3 fL (80-100); Monocytes Absolute Auto 800 /uL (0-900); Monocytes Percent Auto 7.2 % (3-14); Neutrophils Absolute Auto 7900 /uL (1500-7000); Neutrophils Percent Auto 70.5 % (50-75); Platelet Count 217 X10^3/uL (150-400); Red Blood Cell Count 5.02 X10^6/uL (4.5-5.9); Red Cell Distribution Width 12.8 % (11.6-14.8); White Blood Cell Count 11.2 X10^3/uL (4.5-11.0)
[2022-10-06 20:53] LABS: Alanine Aminotransferase 34 IU/L (<50); Albumin 4.3 g/dL (3.5-5.0); Albumin Globulin Ratio 1.4 (1.0-2.8); Alkaline Phosphatase 72 U/L (38-126); Aspartate Aminotransferase 23 IU/L (17-59); BUN Creatinine Ratio 26.9 (6-22); Bilirubin Total 0.5 mg/dL (0.2-1.3); Blood Urea Nitrogen 21 mg/dL (9-20); Calcium 9.2 mg/dL (8.4-10.2); Carbon Dioxide 32 mmol/L (22-32); Chloride 100 mmol/L (98-107); Estimated Glomerular Filt Rate > 60 mL/min (>60); Globulin 3.1 g/dL (1.7-4.1); Glucose 145 mg/dL (70-100); HEMOLYSIS < 15 (0-50); Potassium 3.9 mmol/L (3.4-5.1); Sodium 139 mmol/L (137-145); Total Protein 7.4 g/dL (6.3-8.2)
[2022-10-06] MEDS: OXYCODONE IR 5 MG TABLET 10 MG PO (21:00)
[2022-10-06 21:02] VITALS: PULSE 92; O2SAT 96
[2022-10-06 21:03] VITALS: BP 164/78; PULSE 90; O2SAT 97
--- NOTE | 2022-10-06 21:57 | ED.WOUNDLAC ---
HPI - Wound/Laceration General Chief Complaint: Wound/Laceration Stated Complaint: Infection in foot Time Seen by Provider: 10/06/22 19:47 Source: patient Mode of arrival: Family Vehicle History of Present Illness HPI narrative: 51-year-old gentleman with a history of diabetes, peripheral neuropathy and ulceration of the left great toe. He has been on Keflex for the last couple of days and is noticing that the toe is continuing to have erythema, swelling, increasing tenderness and now there is some slight lymphangitic streaking up the calf with edema extending over the dorsum of the foot. He reports no fevers, cough, chills. No dyspnea or chest pain. Related Data Home Medications Medication Instructions Recorded Confirmed cholecalciferol (vitamin D3) 125 125 mcg PO DAILY 10/25/21 09/26/22 mcg (5,000 unit) capsule multivitamin 1 tab PO DAILY 10/25/21 09/26/22 blood sugar diagnostic (OneTouch #10 ea 08/29/22 09/26/22 Verio test strips) insulin glargine 100 unit/mL (3 50 unit SUBCUT QPM 08/29/22 09/26/22 mL) subcutaneous pen (Basaglar KwikPen U-100 Insulin) Previous Rx's Medication Instructions Recorded mirtazapine 15 mg tablet 15 mg PO BEDTIME #90 tabs 10/25/21 Glucometer #1 ea 02/12/22 duloxetine 60 mg capsule,delayed 60 mg PO DAILY #90 caps 02/12/22 release meloxicam 15 mg tablet 15 mg PO DAILY #90 tabs 02/12/22 rosuvastatin 10 mg tablet 10 mg PO DAILY #90 tabs 02/12/22 sildenafil 50 mg tablet 50 mg PO DAILY PRN sexual activity 05/19/22 #30 tabs methocarbamol 500 mg tablet See Rx Instructions .Route 07/24/22 .COMPLEX #60 tabs empagliflozin 25 mg tablet 25 mg PO DAILY #90 tabs 08/29/22 (Jardiance) pen needle, diabetic, safety 31 #100 ea 08/29/22 gauge x 16 blood-glucose meter,continuous #1 ea 09/04/22 (Dexcom G7 Coating Mixer Supervisor) blood-glucose sensor (Dexcom G7 #9 ea 09/10/22 Sensor device) cephalexin 500 mg capsule 500 mg PO TID #21 caps 10/06/22 oxycodone 5 mg tablet 5 mg PO Q6H PRN pain #20 tabs 10/06/22 Allergies Allergy/AdvReac Type Severity Reaction Status Date / Time Penicillins Allergy Mild Rash Verified 10/06/22 20:57 metformin AdvReac Intermediate Muscle Verified 10/06/22 20:57 Cramps bee Allergy Severe swelling Uncoded 09/26/22 15:26 Review of Systems Review of Systems Narrative: Pertinent positive and negative findings as per HPI Patient History Medical History Chronic low back pain Degenerative tear of glenoid labrum of right shoulder Diabetic ulcer of toe associated with type 2 diabetes mellitus DM type 2 with diabetic dyslipidemia Generalized anxiety disorder History of colonic polyps Mixed hyperlipidemia Persistent proteinuria associated with type 2 diabetes mellitus Primary osteoarthritis involving multiple joints Tobacco use disorder 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 History 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 Able to give a complete and coherent history. Well-nourished well-developed HEENT: Moist mucous membranes, normal sclera with reactive pupils, Respiratory: Lungs are clear to auscultation, no wheezing no rales no rhonchi. Full and symmetrical air movement Cardiac: Regular rate and rhythm no murmurs no bruits Abdomen: Soft, nontender, good bowel tones, no flank pain Skin: Warm and dry, no rashes Neurologic: Grossly neurologically intact with no obvious asymmetries or abnormalities Extremities: Left great toe with ulceration on the plantar surface of the toe surrounding skin no significant drainage mild erythema extending beyond the wound now with edema also to the dorsum of the foot and lymphangitic streaking up the anterior brower. There is no inguinal adenopathy Psych: Cooperative, appropriate insight and affect Course Orders Ordered: ED Orders 10/07/22 04:06 Basic Metabolic Panel Routine Complete Blood Count AUTO DIFF Routine Acetaminophen (Acetaminophen 325 Mg Tablet) 650 mg PO Q6H PRN PRN Reason: Fever/Mild Pain (1-3) Heparin Sodium (Porcine) (Heparin 5,000 Unit/Ml Vial) 5,000 unit SUBCUT BID [facility] Cefepime HCl 1 gm/ Sodium (Chloride) 100 mls @ 200 mls/hr IV Q12H BJ Naloxone HCl (Naloxone 0.4 Mg/Ml Vial) 0.2 mg IV Q2MIN PRN PRN Reason: Opiate Reversal Ondansetron HCl (Ondansetron 4 Mg/2 Ml Inj) 4 mg IV Q8HR PRN PRN Reason: Nausea And Vomiting Oxycodone HCl (Oxycodone Ir 5 Mg Tablet) 5 mg PO Q4H PRN PRN Reason: Pain, Moderate (4-6) Discontinued Medications Hydromorphone HCl (Hydromorphone 0.5 Mg Inj) 0.5 mg IV Q15MIN PRN PRN Reason: Pain, Hydromorphone HCl (Hydromorphone 1 Mg Inj) 1 mg IV NOW ONE Stop: 10/06/22 22:18 Last Admin: 10/06/22 22:33 Dose: 1 mg Documented By: FREDERICK Cefepime HCl 2 gm/ Sodium (Chloride) 100 mls @ 200 mls/hr IV NOW ONE Stop: 10/06/22 22:18 Last Infusion: 10/06/22 23:14 Dose: 0 mls/hr Documented By: Admin: 10/06/22 22:31 Dose: 200 mls/hr Documented By: FREDERICK Insulin Glargine (Insulin Glargine 100 Unit/Ml 3ml Pen) 50 unit SUBCUT BEDTIME [facility] Last Admin: 10/06/22 22:30 Dose: 50 unit Documented By: FREDERICK Co-signed By: GERA Ketorolac Tromethamine (Ketorolac 30 Mg/Ml Vial) 15 mg IV NOW ONE Stop: 10/06/22 22:18 Last Admin: 10/06/22 22:33 Dose: 15 mg Documented By: FREDERICK Mirtazapine (Mirtazapine 15 Mg Tablet) 15 mg PO BEDTIME [facility] Last Admin: 10/06/22 23:47 Dose: 15 mg Documented By: FREDERICK Oxycodone HCl (Oxycodone Ir 5 Mg Tablet) 10 mg PO NOW ONE Stop: 10/06/22 20:57 Last Admin: 10/06/22 21:00 Dose: 10 mg Documented By: FREDERICK Vancomycin HCl (Vancomycin Per Pharmacy) 1 request MISC NOW ONE Stop: 10/06/22 22:18 Last Admin: 10/06/22 23:48 Dose: Not Given Documented By: FREDERICK Vital Signs Vital signs: Vital Signs - 8 hr 10/06/22 19:20 10/06/22 21:02 10/06/22 21:03 Temperature 98.6 F Pulse Rate 89 92 H 90 Respiratory Rate 16 Blood Pressure 154/77 H Pulse Oximetry 99 96 97 Oxygen Delivery Method Room Air 10/06/22 21:03 Temperature Pulse Rate Respiratory Rate Blood Pressure 164/78 H Pulse Oximetry Oxygen Delivery Method MDM - Wound/Laceration Lab Data 10/07/22 04:06 10/07/22 04:06 Labs: Lab Results 10/06/22 10/06/22 10/06/22 Range/Units 20:15 20:15 20:15 WBC 11.2 H (4.5-11.0) X10^3/uL RBC 5.02 (4.5-5.9) X10^6/uL Hgb 14.9 (13.5-17.5) g/dL Hct 42.8 (41-53) % MCV 85.3 (80-100) fL MCH 29.8 (26-34) PG MCHC 34.9 (30-36) % RDW 12.8 (11.6-14.8) % Plt Count 217 (150-400) X10^3/uL Neut % (Auto) 70.5 (50-75) % Lymph % (Auto) 18.8 L (25-40) % [place] % (Auto) 7.2 (3-14) % Eos % (Auto) 2.8 (2-4) % Baso % (Auto) 0.7 (0-2) % Neut # (Auto) 7900 H (5943-5575) /uL Lymph # (Auto) 2100 (5563-6763) /uL [place] # (Auto) 800 (0-900) /uL Eos # (Auto) 300 (0-450) /uL Baso # (Auto) 100 (0-100) /uL ESR (0-15) MM/HR Sodium 139 (137-145) mmol/L Potassium 3.9 (3.4-5.1) mmol/L Chloride 100 (98-107) mmol/L Carbon Dioxide 32 (22-32) mmol/L BUN 21 H (9-20) mg/dL Creatinine 0.78 (0.66-1.25) mg/dL Estimated GFR > 60 (>60) mL/min BUN/Creatinine Ratio 26.9 H (6-22) Glucose 145 H (70-100) mg/dL Lactate 1.0 (0.7-2.1) mmol/L Calcium 9.2 (8.4-10.2) mg/dL Total Bilirubin 0.5 (0.2-1.3) mg/dL AST 23 (17-59) IU/L ALT 34 (<50) IU/L Alkaline Phosphatase 72 (38-126) U/L C-Reactive Protein (<1.0) mg/dL Total Protein 7.4 (6.3-8.2) g/dL Albumin 4.3 (3.5-5.0) g/dL Globulin 3.1 (1.7-4.1) g/dL Albumin/Globulin Ratio 1.4 (1.0-2.8) 10/06/22 10/06/22 Range/Units 20:15 20:15 WBC (4.5-11.0) X10^3/uL RBC (4.5-5.9) X10^6/uL Hgb (13.5-17.5) g/dL Hct (41-53) % MCV (80-100) fL MCH (26-34) PG MCHC (30-36) % RDW (11.6-14.8) % Plt Count (150-400) X10^3/uL Neut % (Auto) (50-75) % Lymph % (Auto) (25-40) % [place] % (Auto) (3-14) % Eos % (Auto) (2-4) % Baso % (Auto) (0-2) % Neut # (Auto) (8802-8185) /uL Lymph # (Auto) (2711-1236) /uL [place] # (Auto) (0-900) /uL Eos # (Auto) (0-450) /uL Baso # (Auto) (0-100) /uL ESR 24 H (0-15) MM/HR Sodium (137-145) mmol/L Potassium (3.4-5.1) mmol/L Chloride (98-107) mmol/L Carbon Dioxide (22-32) mmol/L BUN (9-20) mg/dL Creatinine (0.66-1.25) mg/dL Estimated GFR (>60) mL/min BUN/Creatinine Ratio (6-22) Glucose (70-100) mg/dL Lactate (0.7-2.1) mmol/L Calcium (8.4-10.2) mg/dL Total Bilirubin (0.2-1.3) mg/dL AST (17-59) IU/L ALT (<50) IU/L Alkaline Phosphatase (38-126) U/L C-Reactive Protein 2.5 H (<1.0) mg/dL Total Protein (6.3-8.2) g/dL Albumin (3.5-5.0) g/dL Globulin (1.7-4.1) g/dL Albumin/Globulin Ratio (1.0-2.8) MDM Narrative Medical decision making narrative: CC: Diabetic foot infection sent in by his primary care doctor after worsening symptoms currently on antibiotics. This is an acute problem with uncertain prognosis. Complicating co-morbidities: Diabetes, toe ulceration being treated with topical antibiotic ointment and 3 days of Keflex wound care appointment is scheduled for tomorrow Data collected from: patient, phone call from primary care doctor prior to arrival Social determinants of health that may influence the patients condition: Medical records reviewed: Recent primary care note from 09/26 is reviewed. Differential considered: Diabetic foot ulcer, cellulitis, abscess, osteomyelitis, sepsis Exam documented above, pertinent findings include: Right toe ulcer on the plantar surface no significant drainage. Redness around the edge with early lymphangitic streaking up the dorsum of the foot to approximately mid calf. He also complains of right shoulder pain secondary to his recently diagnosed labral tear. Lab Test results independently reviewed as above. Pertinent findings: Mild leukocytosis at 11.2 with minimal left shift. No significant anemia Chemistries are reassuring with normal creatinine Lactic acid is 1 Imaging studies independently reviewed: X-ray of the great toe does not show any obvious foreign bodies or immediate evidence of osteomyelitis. Consultations: Care is reviewed with his primary care doctor, Dr. Alvarez. Treatments: IV antibiotics, for enteral antibiotics Discussion: 51-year-old gentleman with diabetes, worsening right great toe infection with increasing pain swelling and now early lymphangitic streaking up his inner calf. Has Been on 3 days of Keflex. He has no significant allergies. Will begin parenteral coverage with cefepime and vancomycin. Has a wound care appointment supposed to check in at 8:15 a.m. in the morning. Will ask nursing staff to call the wound care clinic to see if the wound care doctor may be willing to see this gentleman in the hospital. I do think that he would benefit from debridement of the toe and continued wound care for follow-up after discharge. At this point he is not showing acute evidence of sepsis. Additional problems include his diabetes, he complains of difficulty sleeping and requested usual mirtazapine. He has a recently diagnosed the right shoulder labral tear and has irritated that today by doing quite a bit of repetitive upper extremity polishing. Will use Toradol for that and continue Dilaudid over the course of the evening rather than going back to his muscle relaxer. Would prefer not to mixed both parenteral narcotics and muscle relaxers. All of these findings reviewed with patient and he is amenable to treatment. Discharge Plan Departure Patient Disposition: Admitted As Inpatient Clinical Impression: Diabetic foot ulcer, Cellulitis, Type 2 diabetes mellitus Admit Date/Time: 10/06/22 23:48 Admit Provider: Tonio Parmar
[2022-10-06] MEDS: INSULIN GLARGINE 100 UNIT/ML 3ML PEN 50 UNIT SUBCUT (22:30)
[2022-10-06] MEDS: CEFEPIME 2 GM in SODIUM CHLORIDE 0.9% 100 ML IV (22:31)
[2022-10-06] MEDS: HYDROMORPHONE 1 MG INJ IV (22:33)
[2022-10-06] MEDS: KETOROLAC 30 MG/ML VIAL 15 MG IV (22:33)
[2022-10-06 23:43] LABS: Erythrocyte Sedimentation Rate 24 MM/HR (0-15)
[2022-10-06] MEDS: MIRTAZAPINE 15 MG TABLET PO (23:47)
[2022-10-06 23:52] VITALS: BP 108/56; PULSE 79; O2SAT 97
[2022-10-07 00:28] LABS: C-Reactive Protein Quant 2.5 mg/dL (<1.0)
[2022-10-07 04:26] LABS: Add Manual Diff / Slide Review NO; Basophils Absolute Auto 100 /uL (0-100); Basophils Percent Auto 0.7 % (0-2); Eosinophils Absolute Auto 400 /uL (0-450); Eosinophils Percent Auto 5.1 % (2-4); Hematocrit 39.2 % (41-53); Hemoglobin 13.9 g/dL (13.5-17.5); Lymphocytes Absolute Auto 2600 /uL (1100-4500); Lymphocytes Percent Auto 31.9 % (25-40); Mean Corpuscular HGB Conc 35.4 % (30-36); Mean Corpuscular Volume 84.7 fL (80-100); Monocytes Absolute Auto 700 /uL (0-900); Monocytes Percent Auto 8.5 % (3-14); Neutrophils Absolute Auto 4400 /uL (1500-7000); Neutrophils Percent Auto 53.8 % (50-75); Platelet Count 189 X10^3/uL (150-400); Red Blood Cell Count 4.63 X10^6/uL (4.5-5.9); Red Cell Distribution Width 12.6 % (11.6-14.8); White Blood Cell Count 8.1 X10^3/uL (4.5-11.0)
[2022-10-07 04:31] LABS: BUN Creatinine Ratio 33.3 (6-22); Blood Urea Nitrogen 24 mg/dL (9-20); Calcium 8.6 mg/dL (8.4-10.2); Carbon Dioxide 30 mmol/L (22-32); Chloride 102 mmol/L (98-107); Estimated Glomerular Filt Rate > 60 mL/min (>60); Glucose 127 mg/dL (70-100); HEMOLYSIS < 15 (0-50); Potassium 3.8 mmol/L (3.4-5.1); Sodium 137 mmol/L (137-145)
[2022-10-07 05:36] VITALS: BP 119/73; PULSE 78; O2SAT 95
[2022-10-07 05:41] VITALS: BP 119/73; PULSE 67; RESP 16; O2SAT 95
--- NOTE | 2022-10-07 06:03 | P.HP_ITS ---
History of Present Illness History of Present Illness Date Patient Seen: 10/06/22 Time Patient Seen: 22:00 Chief complaint: Infection in foot Narrative: Mr. Coon is a 51M with PMH Type 2 DM, HL, who presents to the hospital with painful, swollen right toe. He noted a few weeks ago he developed a scab on the plantar surface on his toe. He picked it off and noted an ulcer. He went and was seen by his PCP who debrided his toe and gave him a few days of prophylactic antibiotics. He was subsequently given one week of antibiotics with keflex. He has since noted developing swelling and erythema in his toe. He has no fevers or chills. He has no pus from the toe. In the ED workup was done, vitals notable for afebrile, heart rate 80s, blood pressure 150s/70s, sats 99% on room air. Labs reviewed by me and notable for WBC 11.2, hgb 14.9, plts 217. Na 139, creatinine 0.78. ESR 24, crp 2.5. Foot xray reviewed by me and showed soft tissue gas, no notable bone involvement. He was ordered for antibiotics and admitted for further treatment. 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: significant other Smoking Status: Current every day smoker alcohol intake: current Meds Home Medications and Allergies Home Medications Medication Instructions Recorded Confirmed Type cholecalciferol (vitamin D3) 125 125 mcg PO DAILY 10/25/21 09/26/22 History mcg (5,000 unit) capsule mirtazapine 15 mg tablet 15 mg PO BEDTIME #90 tabs 10/25/21 09/26/22 Rx multivitamin 1 tab PO DAILY 10/25/21 09/26/22 History Glucometer #1 ea 02/12/22 09/26/22 Rx duloxetine 60 mg capsule,delayed 60 mg PO DAILY #90 caps 02/12/22 09/26/22 Rx release meloxicam 15 mg tablet 15 mg PO DAILY #90 tabs 02/12/22 09/26/22 Rx rosuvastatin 10 mg tablet 10 mg PO DAILY #90 tabs 02/12/22 09/26/22 Rx sildenafil 50 mg tablet 50 mg PO DAILY PRN sexual activity 05/19/22 09/26/22 Rx #30 tabs methocarbamol 500 mg tablet See Rx Instructions .Route 07/24/22 09/26/22 Rx .COMPLEX #60 tabs blood sugar diagnostic (OneTouch #10 ea 08/29/22 09/26/22 History Verio test strips) empagliflozin 25 mg tablet 25 mg PO DAILY #90 tabs 08/29/22 09/26/22 Rx (Jardiance) insulin glargine 100 unit/mL (3 50 unit SUBCUT QPM 08/29/22 09/26/22 History mL) subcutaneous pen (International BatteryPen U-100 Insulin) pen needle, diabetic, safety 31 #100 ea 08/29/22 09/26/22 Rx gauge x 5/16 blood-glucose meter,continuous #1 ea 09/04/22 09/26/22 Rx (Dexcom G7 Soils Analyst) blood-glucose sensor (Dexcom G7 #9 ea 09/10/22 09/26/22 Rx Sensor device) cephalexin 500 mg capsule 500 mg PO TID #21 caps 10/06/22 Rx oxycodone 5 mg tablet 5 mg PO Q6H PRN pain #20 tabs 10/06/22 Rx Allergies Allergy/AdvReac Type Severity Reaction Status Date / Time Penicillins Allergy Mild Rash Verified 10/06/22 20:57 metformin AdvReac Intermediate Muscle Verified 10/06/22 20:57 Cramps bee Allergy Severe swelling Uncoded 09/26/22 15:26 Review of Systems Review of Systems Narrative: 14 systems reviewed and negative aside from what is noted in hpi Exam Vital Signs (past 8 hours): - 10/06/22 23:52 10/06/22 23:52 10/07/22 05:41 Pulse Rate 79 67 Respiratory Rate 16 Blood Pressure 108/56 L Blood Pressure [Right Arm] 119/73 Pulse Oximetry 97 95 Oxygen Delivery Method Room Air Oxygen Delivery Method Room Air Narrative Exam Narrative: GEN: no acute distress CV: regular rate and rhythm PULM: clear bilaterally ABD: soft, nontender, nondistended, no organomegaly EXT: R toe erythematous, swollen, painful to touch with red streak up the forefoot Objective Labs 10/07/22 04:06 10/07/22 04:06 Labs: Laboratory Results - last 24 hr 10/06/22 10/06/22 10/06/22 20:15 20:15 20:15 WBC 11.2 H RBC 5.02 Hgb 14.9 Hct 42.8 MCV 85.3 MCH 29.8 MCHC 34.9 RDW 12.8 Plt Count 217 Neut % (Auto) 70.5 Lymph % (Auto) 18.8 L [place] % (Auto) 7.2 Eos % (Auto) 2.8 Baso % (Auto) 0.7 Neut # (Auto) 7900 H Lymph # (Auto) 2100 [place] # (Auto) 800 Eos # (Auto) 300 Baso # (Auto) 100 ESR Sodium 139 Potassium 3.9 Chloride 100 Carbon Dioxide 32 BUN 21 H Creatinine 0.78 Estimated GFR > 60 BUN/Creatinine Ratio 26.9 H Glucose 145 H Lactate 1.0 Calcium 9.2 Total Bilirubin 0.5 AST 23 ALT 34 Alkaline Phosphatase 72 C-Reactive Protein Total Protein 7.4 Albumin 4.3 Globulin 3.1 Albumin/Globulin Ratio 1.4 10/06/22 10/06/22 10/07/22 20:15 20:15 04:06 WBC 8.1 RBC 4.63 Hgb 13.9 Hct 39.2 L MCV 84.7 MCH 30.0 MCHC 35.4 RDW 12.6 Plt Count 189 Neut % (Auto) 53.8 Lymph % (Auto) 31.9 [place] % (Auto) 8.5 Eos % (Auto) 5.1 H Baso % (Auto) 0.7 Neut # (Auto) 4400 Lymph # (Auto) 2600 [place] # (Auto) 700 Eos # (Auto) 400 Baso # (Auto) 100 ESR 24 H Sodium Potassium Chloride Carbon Dioxide BUN Creatinine Estimated GFR BUN/Creatinine Ratio Glucose Lactate Calcium Total Bilirubin AST ALT Alkaline Phosphatase C-Reactive Protein 2.5 H Total Protein Albumin Globulin Albumin/Globulin Ratio 10/07/22 04:06 WBC RBC Hgb Hct MCV MCH MCHC RDW Plt Count Neut % (Auto) Lymph % (Auto) [place] % (Auto) Eos % (Auto) Baso % (Auto) Neut # (Auto) Lymph # (Auto) [place] # (Auto) Eos # (Auto) Baso # (Auto) ESR Sodium 137 Potassium 3.8 Chloride 102 Carbon Dioxide 30 BUN 24 H Creatinine 0.72 Estimated GFR > 60 BUN/Creatinine Ratio 33.3 H Glucose 127 H Lactate Calcium 8.6 Total Bilirubin AST ALT Alkaline Phosphatase C-Reactive Protein Total Protein Albumin Globulin Albumin/Globulin Ratio Assessment & Plan Assessment & Plan narrative: 1. Diabetic foot ulcer and cellulitis -did get one week of keflex with worsening infection -failed outpatient antibiotics -will need IV antibiotics -for now ordered for vanomycin and zosyn -foot xray shows no bony involvement and ESR/CRP are only mildly elevated, so suspicion for osteomyelitis is low -may need wound debridement 2. Type 2 DM on insulin -continue home dose insulin -continue home dose lantus 50u daily -hold oral diabetic medications for now I have discussed plan and obtained history from patient and family at bedside. I have discussed plan of care with ED physician. I have reviewed labs, imaging. [facility] [place] - Meds 'Current medications' to include all prescriptions, [id number] products, herbals, cannabis/cannabidiol products, and vitamin/mineral/dietary (nutritional) supplements. I have utilized all available resources to obtain, update, or review the patient?s current medications. [If Yes, STOP here]: Yes
[2022-10-07 06:44] VITALS: BMI 29.0
[2022-10-07] MEDS: OXYCODONE IR 5 MG TABLET PO ×4 (06:53→20:20)
[2022-10-07] MEDS: DULOXETINE 30 MG CAPSULE 60 MG PO (09:22)
[2022-10-07] MEDS: VANCOMYCIN 2,500 MG in SODIUM CHLORIDE 0.9% 500 ML 200 MG IV (09:22)
[2022-10-07] MEDS: HEPARIN 5,000 UNIT/ML VIAL 5000 UNIT SUBCUT ×2 (09:23→20:27)
[2022-10-07 12:28] VITALS: BP 137/76; PULSE 77; RESP 17; TEMP 37.2; O2SAT 97
[2022-10-07] MEDS: CEFEPIME 1 GM in SODIUM CHLORIDE 0.9% 100 ML IV ×2 (12:34→23:04)
--- NOTE | 2022-10-07 15:42 | P.PN_ITS ---
Subjective Subjective Date Patient Seen: 10/07/22 Time Patient Seen: 08:00 Interval history: He feels his toe is slightly improved. The redness and pain is slightly less. He has rotator cuff tear, his PCP is in process of referral for outpatient ortho follow up. Exam Vital Signs (past 8 hours): - 10/07/22 12:28 Temperature 98.9 F Pulse Rate 77 Respiratory Rate 17 Blood Pressure 137/76 Pulse Oximetry 97 Oxygen Flow Rate 0 Oxygen Delivery Method Room Air Oxygen Flow Rate 0 Narrative Exam Narrative: GEN: no acute distress CV: regular rate and rhythm PULM: clear bilaterally ABD: soft, nontender, nondistended, no organomegaly EXT: R toe erythematous, swollen, painful to touch with red streak up the forefoot, plantar ulcer with scant amount pus, does not probe to bone Objective Labs 10/07/22 04:06 10/07/22 04:06 Labs: Laboratory Results - last 24 hr 10/06/22 10/06/22 10/06/22 20:15 20:15 20:15 WBC 11.2 H RBC 5.02 Hgb 14.9 Hct 42.8 MCV 85.3 MCH 29.8 MCHC 34.9 RDW 12.8 Plt Count 217 Neut % (Auto) 70.5 Lymph % (Auto) 18.8 L [place] % (Auto) 7.2 Eos % (Auto) 2.8 Baso % (Auto) 0.7 Neut # (Auto) 7900 H Lymph # (Auto) 2100 [place] # (Auto) 800 Eos # (Auto) 300 Baso # (Auto) 100 ESR Sodium 139 Potassium 3.9 Chloride 100 Carbon Dioxide 32 BUN 21 H Creatinine 0.78 Estimated GFR > 60 BUN/Creatinine Ratio 26.9 H Glucose 145 H Lactate 1.0 Calcium 9.2 Total Bilirubin 0.5 AST 23 ALT 34 Alkaline Phosphatase 72 C-Reactive Protein Total Protein 7.4 Albumin 4.3 Globulin 3.1 Albumin/Globulin Ratio 1.4 10/06/22 10/06/22 10/07/22 20:15 20:15 04:06 WBC 8.1 RBC 4.63 Hgb 13.9 Hct 39.2 L MCV 84.7 MCH 30.0 MCHC 35.4 RDW 12.6 Plt Count 189 Neut % (Auto) 53.8 Lymph % (Auto) 31.9 [place] % (Auto) 8.5 Eos % (Auto) 5.1 H Baso % (Auto) 0.7 Neut # (Auto) 4400 Lymph # (Auto) 2600 [place] # (Auto) 700 Eos # (Auto) 400 Baso # (Auto) 100 ESR 24 H Sodium Potassium Chloride Carbon Dioxide BUN Creatinine Estimated GFR BUN/Creatinine Ratio Glucose Lactate Calcium Total Bilirubin AST ALT Alkaline Phosphatase C-Reactive Protein 2.5 H Total Protein Albumin Globulin Albumin/Globulin Ratio 10/07/22 04:06 WBC RBC Hgb Hct MCV MCH MCHC RDW Plt Count Neut % (Auto) Lymph % (Auto) [place] % (Auto) Eos % (Auto) Baso % (Auto) Neut # (Auto) Lymph # (Auto) [place] # (Auto) Eos # (Auto) Baso # (Auto) ESR Sodium 137 Potassium 3.8 Chloride 102 Carbon Dioxide 30 BUN 24 H Creatinine 0.72 Estimated GFR > 60 BUN/Creatinine Ratio 33.3 H Glucose 127 H Lactate Calcium 8.6 Total Bilirubin AST ALT Alkaline Phosphatase C-Reactive Protein Total Protein Albumin Globulin Albumin/Globulin Ratio [facility] Medical History Chronic low back pain Degenerative tear of glenoid labrum of right shoulder Diabetic ulcer of toe associated with type 2 diabetes mellitus DM type 2 with diabetic dyslipidemia Generalized anxiety disorder History of colonic polyps Mixed hyperlipidemia Persistent proteinuria associated with type 2 diabetes mellitus Primary osteoarthritis involving multiple joints Tobacco use disorder 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 Diabetic foot ulcer and cellulitis -did get one week of keflex with worsening infection -failed outpatient antibiotics -will need IV antibiotics -for now ordered for vanomycin and zosyn -foot xray shows no bony involvement and ESR/CRP are only mildly elevated, so suspicion for osteomyelitis is low -may need wound debridement, wound consult placed 2. Type 2 DM on insulin -continue home dose insulin -continue home dose lantus 50u daily -hold oral diabetic medications for now 3. Rotator cuff tear -follow up PCP as outpatient for ortho referral
[2022-10-07 16:00] VITALS: BP 123/67; PULSE 77; RESP 18; TEMP 36.8; O2SAT 96
[2022-10-07] MEDS: VANCOMYCIN 1,250 MG/250 ML PIGGYBACK 250 MG IV (18:38)
--- NOTE | 2022-10-07 18:50 | PC.NURSE ---
Skin Assessment Pictures
[2022-10-07 20:00] VITALS: BP 135/76; PULSE 76; RESP 18; TEMP 36.3; O2SAT 96
[2022-10-07] MEDS: INSULIN GLARGINE 100 UNIT/ML 3ML PEN 50 UNIT SUBCUT (20:26)
[2022-10-07] MEDS: MIRTAZAPINE 15 MG TABLET PO (21:56)
[2022-10-07] MEDS: OXYCODONE IR 5 MG TABLET 10 MG PO (21:56)
[2022-10-07] MEDS: methocarbamoL 500 MG TABLET PO (21:56)
[2022-10-07] MEDS: polyethylene glycoL 3350 17 GM POWD.PACK PO (21:57)
[2022-10-08] VITALS (7 sets, daily range): BP systolic 122–135; BP diastolic 71–77; PULSE 72–83; RESP 16–18; TEMP 36.1–36.5; O2SAT 95–97
[2022-10-08] MEDS: VANCOMYCIN 1,250 MG/250 ML PIGGYBACK 250 MG IV ×2 (02:21→09:43)
--- NOTE | 2022-10-08 03:39 | PC.NURSE ---
1900: pt states frustration w/ pain management, also requesting stool softeners and some home medications. Spoke w/ Dr. Chang. New orders placed.
[2022-10-08 05:55] LABS: BUN Creatinine Ratio 28.2 (6-22); Blood Urea Nitrogen 20 mg/dL (9-20); Calcium 8.4 mg/dL (8.4-10.2); Carbon Dioxide 32 mmol/L (22-32); Chloride 100 mmol/L (98-107); Estimated Glomerular Filt Rate > 60 mL/min (>60); Glucose 74 mg/dL (70-100); HEMOLYSIS < 15 (0-50); Potassium 4.1 mmol/L (3.4-5.1); Sodium 136 mmol/L (137-145)
[2022-10-08 05:57] LABS: Hematocrit 40.3 % (41-53); Hemoglobin 14.1 g/dL (13.5-17.5); Mean Corpuscular HGB Conc 34.9 % (30-36); Mean Corpuscular Hemoglobin 30.1 PG (26-34); Mean Corpuscular Volume 86.3 fL (80-100); Platelet Count 210 X10^3/uL (150-400); Red Blood Cell Count 4.67 X10^6/uL (4.5-5.9); Red Cell Distribution Width 12.7 % (11.6-14.8); White Blood Cell Count 8.6 X10^3/uL (4.5-11.0)
--- NOTE | 2022-10-08 06:10 | PC.NURSE ---
0530: Pt woke up w/ low blood glucose alert, our blood glucose reader: 65. Pt requested [facility], recheck at 0607: 122. Dr. Chang notified.
[2022-10-08] MEDS: OXYCODONE IR 5 MG TABLET 10 MG PO ×4 (08:00→17:51)
[2022-10-08] MEDS: HEPARIN 5,000 UNIT/ML VIAL 5000 UNIT SUBCUT ×2 (08:01→21:45)
[2022-10-08] MEDS: DULOXETINE 30 MG CAPSULE 60 MG PO (08:03)
[2022-10-08] MEDS: methocarbamoL 500 MG TABLET PO ×2 (08:41→16:08)
[2022-10-08 09:33] LABS: Vancomycin Trough 12.3 ug/mL (10-20)
[2022-10-08] MEDS: VANCOMYCIN TROUGH 1 REQUEST MISC (09:43)
[2022-10-08] MEDS: KETOROLAC 30 MG/ML VIAL 15 MG IV ×2 (11:46→22:04)
[2022-10-08] MEDS: CEFEPIME 1 GM in SODIUM CHLORIDE 0.9% 100 ML IV ×2 (11:46→23:21)
--- NOTE | 2022-10-08 11:50 | CM.DANOTE ---
Patient is a 51 yo male who was admitted on 10/08/22 for Diabetic ulcer/cellulitis. Pt has [employer] AD[employer] for insurance and his PCP is Dr. Chinedu Alvarez. EMR was reviewed. Per MD, pt with a hx of diabetes and failed outpt debridement and oral abx and admitted for IV-Abx, possible I&D and Wound Consult. SW called [facility] and informed them of the Wound Consult orders and Dr. Mccord to likely do bedside consultation today. 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 Pt active and independent and has been working closely with his PCP for Ortho consult for his neck pain and now his diabetic ulcer/infection. Pt denies any hx of HH or SNF and Sig Other can assist as needed at d/c. Pt is hopeful for debridement, wound consult, and then d/c to home when medically stable. Pt confirms he is not a patient melanie, hard for me to sit here knowing I have a lot of work that needs to be done but has a good relationship with his PCP who will round on pt bedside from the clinic around lunchtime for further support and consultation. Plan: SW to follow closely for above towards determining if IV-Abx needed at d/c vs orals and any further identified discharge planning needs. WILL Benz Discharge Planning/Care Management CM Discharge Assessment Start: 10/08/22 11:48 Freq: Status: Active Protocol: Document 10/08/22 11:48 BF (Rec: 10/08/22 11:50 BF [id number]) Discharge Planning Assessment Assigned [employer] Administrator WILL Ramirez DPOA/Assigned Designee Name informally Sig Khadijah Sevilla Contact Information [phone] Advance Directives? No Advance Directives on File No History Provided By Patient,Significant Other, Medical Record Has Patient been admitted in last 30 No days? Prior Living Arrangements House Household Members significant other Type of transporation used prior to Drives own vehicle admit Independent with ADL's Yes Is patient alert and oriented? Yes Caregiver for Another No Barriers to Discharge No Comment r/o IV-Abx at d.c Discharge Plan Home Transportation Arrangement Sig Other bedside and can transport Additional Comment Pending progress and r/o IV- Abx at d/c Whiteboard Updated in Patient Room with Yes name and ext. # of [employer] Administrator Review Status In Process Please Provide Date Initial DC 10/08/22 Assessment Was Performed Next Review Type Continued Stay Review
--- NOTE | 2022-10-08 14:35 | PM.PN.1 ---
Subjective Subjective Date Patient Seen: 10/08/22 Time Patient Seen: 08:00 Interval history: He continues to have pain in shoulder and foot that is not improved with higher dose oxycodone. Exam Vital Signs (past 8 hours): - 10/08/22 08:00 10/08/22 08:00 10/08/22 08:00 Temperature 97.5 F L Pulse Rate 78 Respiratory Rate 16 Blood Pressure 135/77 Pulse Oximetry 97 97 Oxygen Delivery Method Room Air Room Air Oxygen Flow Rate 0 10/08/22 13:52 Temperature Pulse Rate 75 Respiratory Rate 16 Blood Pressure 125/77 Pulse Oximetry 96 Oxygen Delivery Method Oxygen Flow Rate Oxygen Delivery Method Room Air Oxygen Flow Rate 0 Narrative Exam Narrative: GEN: no acute distress CV: regular rate and rhythm PULM: clear bilaterally ABD: soft, nontender, nondistended, no organomegaly EXT: R toe erythematous, swollen, painful to touch with red streak up the forefoot, plantar ulcer of toe is dry Objective Labs 10/08/22 05:19 10/08/22 05:19 Labs: Laboratory Results - last 24 hr 10/08/22 10/08/22 10/08/22 05:19 05:19 08:45 WBC 8.6 RBC 4.67 Hgb 14.1 Hct 40.3 L MCV 86.3 MCH 30.1 MCHC 34.9 RDW 12.7 Plt Count 210 Sodium 136 L Potassium 4.1 Chloride 100 Carbon Dioxide 32 BUN 20 Creatinine 0.71 Estimated GFR > 60 BUN/Creatinine Ratio 28.2 H Glucose 74 Calcium 8.4 Vancomycin Trough 12.3 PFSH Medical History Chronic low back pain Degenerative tear of glenoid labrum of right shoulder Diabetic ulcer of toe associated with type 2 diabetes mellitus DM type 2 with diabetic dyslipidemia Generalized anxiety disorder History of colonic polyps Mixed hyperlipidemia Persistent proteinuria associated with type 2 diabetes mellitus Primary osteoarthritis involving multiple joints Tobacco use disorder 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 Diabetic foot ulcer and cellulitis -did get one week of keflex with worsening infection -failed outpatient antibiotics -will need IV antibiotics -for now ordered for vanomycin and zosyn -foot xray shows no bony involvement and ESR/CRP are only mildly elevated, so suspicion for osteomyelitis is low -may need wound debridement, wound consult placed 2. Type 2 DM on insulin -home dose lantus is 50U daily -did have an episode hypoglycemia on 6/7 am so decreased lantus slightly -hold oral diabetic medications for now 3. Rotator cuff tear -follow up PCP as outpatient for ortho referral
[2022-10-08] MEDS: VANCOMYCIN 1,500 MG/300 ML PIGGYBACK 200 MG IV (17:51)
[2022-10-08] MEDS: polyethylene glycoL 3350 17 GM POWD.PACK PO (21:45)
[2022-10-08] MEDS: MIRTAZAPINE 15 MG TABLET PO (21:45)
[2022-10-08] MEDS: INSULIN GLARGINE 100 UNIT/ML 3ML PEN 45 UNIT SUBCUT (21:57)
[2022-10-08] MEDS: OXYCODONE IR 5 MG TABLET PO (22:05)
[2022-10-09] MEDS: VANCOMYCIN 1,500 MG/300 ML PIGGYBACK 200 MG IV ×2 (01:52→09:49)
[2022-10-09] MEDS: OXYCODONE IR 5 MG TABLET 10 MG PO ×2 (05:27→15:46)
--- NOTE | 2022-10-09 06:02 | PC.NURSE ---
pt has complained of pain to right foot and right shoulder and has been medicated with oxy, the last dose around 529; he anticipates wound care coming to see him today and draining his toe; he has been refusing his sliding scale coverage but did take his long lasting insulin at bedtime
[2022-10-09 08:25] VITALS: BP 138/79; PULSE 73; RESP 16; TEMP 36.2; O2SAT 98
[2022-10-09] MEDS: DULOXETINE 30 MG CAPSULE 60 MG PO (08:26)
[2022-10-09] MEDS: KETOROLAC 30 MG/ML VIAL 15 MG IV (08:26)
[2022-10-09] MEDS: HEPARIN 5,000 UNIT/ML VIAL 5000 UNIT SUBCUT (08:26)
[2022-10-09 10:34] LABS: Vancomycin Trough 16.4 ug/mL (10-20)
[2022-10-09] MEDS: methocarbamoL 500 MG TABLET PO ×2 (11:00→17:24)
[2022-10-09] MEDS: CEFEPIME 1 GM in SODIUM CHLORIDE 0.9% 100 ML IV (11:08)
--- NOTE | 2022-10-09 11:31 | PM.PN.1 ---
Subjective Subjective Interval history: 51-year-old male with type 2 diabetes, hyperlipidemia, known right shoulder rotator cuff injury who was admitted with a diabetic foot ulcer, cellulitis. He was initially placed on Zosyn and vancomycin. Foot x-ray showed no bony involvement. Sed rate and CRP were minimally elevated leading to a low suspicion for osteomyelitis. Wound Care consult was placed and Dr. Mccord saw the patient this morning and plans debridement this afternoon. Patient has multiple complaints this morning. He complains of a rash on the top of his right foot. He also complains of point tenderness over his left chest as well as a ?swollen lymph node? in his right armpit. He reports that if you press on his toe, pus comes out. Overall, he is feeling painful, anxious about missing work and not being able to accomplish his other usual responsibilities. He notes he does have an appointment with Orthopedic surgery to further determine treatment for his rotator cuff injury. Exam Vital Signs (past 8 hours): - 10/09/22 08:25 Temperature 97.2 F L Pulse Rate 73 Respiratory Rate 16 Blood Pressure 138/79 Pulse Oximetry 98 Oxygen Flow Rate 0 Oxygen Delivery Method Room Air Oxygen Flow Rate 0 Narrative Exam Narrative: GEN: Middle-aged male, Alert and oriented x 3, NAD HEENT:NC, Face symmetric CHEST: Respiratory excursions symmetric, CTAB, point tenderness over his left 5th costochondral junction CV: RRR, no M/R/G ABD: Soft, NT/ND, BT present in all 4 quadrants, no organomegaly or masses EXTR: warm, well perfused, callus noted to the pad of the great toe with a small amount of purulent drainage coming out of a pinpoint hole, his toe is erythematous and swollen, mild foot swelling SKIN: warm and dry, scaly dry skin at the junction between the right foot and ankle with scattered papules and excoriation NEURO: Alert and oriented x 3, nonfocal Right axilla: No lymphadenopathy noted. He does have tenderness and tightness over 1 of his pectoral muscle (?teres major) Objective Labs 10/08/22 05:19 10/08/22 05:19 Labs: Laboratory Results - last 24 hr 10/09/22 09:40 Vancomycin Trough 16.4 PFSH Medical History Chronic low back pain Degenerative tear of glenoid labrum of right shoulder Diabetic ulcer of toe associated with type 2 diabetes mellitus DM type 2 with diabetic dyslipidemia Generalized anxiety disorder History of colonic polyps Mixed hyperlipidemia Persistent proteinuria associated with type 2 diabetes mellitus Primary osteoarthritis involving multiple joints Tobacco use disorder 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 Diabetic right great toe ulcer Patient is on cefepime and vancomycin. Appreciate Wound Care consult. Dr. Mccord will return this afternoon for debridement. Depending on his recommendations, patient may be able to discharge home with oral antibiotics later today. 2. Right rotator cuff injury Patient underwent an MRI on October 04 which revealed nondisplaced tearing of the posterosuperior labrum with a lobular paralabral cyst extending medially over the glenoid rim to the suprascapular notch. No signs of acute or chronic denervation changes within the supraspinatus or infraspinatus muscles. There is a low-grade partial intrasubstance tearing of the supraspinatus tendon at the distal insertion superimposed on moderate tendinosis. There is low-grade partial articular sided tearing of the infraspinatus tendon at the mid to posterior insertion superimposed on moderate tendinosis. Mild tendinosis and low-grade partial intrasubstance tearing of the subscapularis tendon at the distal insertion. Moderate AC joint osteoarthrosis. Partial effacement of the rotator interval fat and mild thickening of the inferior glenohumeral ligament are felt to be nonspecific, but can be seen in the setting of clinical syndrome of adhesive capsulitis. Patient has full movement of his shoulder, making adhesive capsulitis unlikely. Patient reports he is scheduled to see Dr. Bentley, orthopedic surgery, on an outpatient basis. 3. Generalized musculoskeletal pain involving the left costochondral junction and right chest wall muscle. Discussed with him it is likely that his body mechanics are shifted because of his shoulder injury. Advised that these are not specifically concerning. He was worried the pain in his left chest was secondary to a cardiac issue. Was reassured to learn that this is musculoskeletal in nature. He is receiving oxycodone and Toradol. He had as needed methocarbamol written but he was not using it. I have scheduled this 4 times daily. 4. Right dorsal foot rash Suspect this is atopic dermatitis. He does have a smaller amount of similar papules on his left foot. Will apply triamcinolone cream and encouraged him to use Vaseline at home 5. Diabetes mellitus type 2, insulin requiring Blood sugars have ranged from 160-248 and last 24 hours. Here he has been on Lantus 45 units at bedtime along with sliding scale. At home he uses 50 units of Lantus as well as Jardiance. Those have been reordered. Code status Full Prophylaxis Low Jason score Disposition Possible discharge home later today pending debridement by wound care physician
--- NOTE | 2022-10-09 12:26 | DI.MRI.S_ITS ---
PROCEDURE: MR FOOT RT WO/W CON INDICATIONS: Wound TECHNIQUE: Noncontrast sagittal T1 spin echo and T2 fast spin echo with fat saturation, long-axis T1 spin echo and T2 fast spin echo with fat saturation; short-axis T1 spin echo, proton density fast spin echo, and T2 fast spin echo with fat saturation through the forefoot. Post-contrast short axis, long axis, and sagittal T1 spin echo with fat saturation through the forefoot. COMPARISON: [facility], CR, XR FOOT RT MIN 3V, 10/06/2022, 20:10. FINDINGS: Image quality: Excellent. Bones and joints: There is abnormal bone marrow edema and enhancement laterally within the 1st distal phalanx with suspected overlying cortical erosion along the plantar aspect. The findings are consistent with osteomyelitis. Elsewhere, no definite areas of osteomyelitis identified. No fractures or bone contusions. There are mild osteoarthritic changes along the interphalangeal joints with small foci of subchondral edema. No joint effusions. Soft tissues: There is a plantar soft tissue ulcer in the great toe at the level of the 1st interphalangeal joint with a subjacent peripherally enhancing sinus tract measuring approximately 0.7 x 0.7 cm and extending to a depth of approximately 0.9 cm to the level of the flexor hallucis longus tendon. There is adjacent subcutaneous edema and enhancement consistent with cellulitis. No discrete loculated fluid collection to suggest an abscess. The visualized plantar foot muscles demonstrate normal bulk and overall signal. Visualized flexor and extensor tendons appear intact, without tenosynovitis. The distal insertions of the peroneus brevis and longus tendons appear intact. The principal Lisfranc ligament appears intact. There is a small amount of intermetatarsal bursal fluid within the 1st metatarsal interspace. No soft tissue ganglion cysts. IMPRESSION: 1. Abnormal bone marrow edema and enhancement within the lateral aspect of the 1st distal phalanx consistent with osteomyelitis. 2. Plantar soft tissue ulcer in the great toe at the level of the interphalangeal joint with a subjacent sinus tract extending to the flexor tendon. No tenosynovial fluid. Dictated by: Curtis Alejandre M.D. on 10/09/2022 at 20:04 Approved by: Curtis Alejandre M.D. on 10/09/2022 at 20:13
--- NOTE | 2022-10-09 12:27 | DI.US.S_ITS ---
PROCEDURE: US ARTERIAL DUPLEX LE RT INDICATIONS: WOUND DIABETIC FOOT ULCER TECHNIQUE: Color and pulse Doppler interrogation was performed of the right lower extremity arterial system, with image documentation. COMPARISON: None. FINDINGS: Common femoral artery: 96.0 cm/sec, with triphasic flow. Deep femoral artery: 55.0 cm/sec, with biphasic flow. Proximal superficial femoral artery: 93.1 cm/sec, with triphasic flow. Mid superficial femoral artery: 105.9 cm/sec, with triphasic flow. Distal superficial femoral artery: 72.7 cm/sec, with triphasic flow. Popliteal artery: 90.2 cm/sec, with triphasic flow. Posterior tibial artery: 89.9 cm/sec, with triphasic flow. Anterior tibial artery/dorsalis pedis: 74.1 cm/sec, with triphasic flow. Martinez-scale imaging description: No significant plaque. IMPRESSION: No significant stenosis identified in the right lower extremity arteries. Dictated by: Denis Butler M.D. on 10/09/2022 at 14:12 Approved by: Denis Butler M.D. on 10/09/2022 at 14:14
--- NOTE | 2022-10-09 13:32 | P.CONS_ITS ---
History of Present Illness Consult details Date Patient Seen: 10/09/22 Time Patient Seen: 11:45 Chief complaint: Infection in foot Narrative: The patient is a 51-year-old male with type 2 diabetes mellitus who was admitted to the hospital October 07, 2022 for treatment of diabetic foot infection involving the right great toe. First noted a small callous about 3 weeks ago which he removed himself. He subsequently developed a small ulcer that became erythematous. He underwent debridement by his primary care physician and was started on a course of Keflex. The redness and swelling gradually worsened and therefore he was admitted to the hospital for further evaluation and treatment. He does report having some pain in the right great toe with ambulation. He has also noticed some erythema on the dorsum of his foot and some red streaks extending up his leg. He has not noted any significant drainage from the wound nor has he had any fever. Patient reports good control of his blood sugars. He is a current every day smoker. He denies ever having had any similar problems in the past and does not use diabetic footwear. Meds Home Medications and Allergies Home Medications Medication Instructions Recorded Confirmed Type cholecalciferol (vitamin D3) 125 125 mcg PO DAILY 10/25/21 10/07/22 History mcg (5,000 unit) capsule multivitamin 1 tab PO DAILY 10/25/21 10/07/22 History Glucometer #1 ea 02/12/22 10/07/22 Rx duloxetine 60 mg capsule,delayed 60 mg PO DAILY #90 caps 02/12/22 10/07/22 Rx release meloxicam 15 mg tablet 15 mg PO DAILY #90 tabs 02/12/22 10/07/22 Rx rosuvastatin 10 mg tablet 10 mg PO DAILY #90 tabs 02/12/22 10/07/22 Rx sildenafil 50 mg tablet 50 mg PO DAILY PRN sexual activity 05/19/22 10/07/22 Rx #30 tabs methocarbamol 500 mg tablet See Rx Instructions .Route 07/24/22 10/07/22 Rx .COMPLEX #60 tabs blood sugar diagnostic (OneTouch #10 ea 08/29/22 10/07/22 History Verio test strips) empagliflozin 25 mg tablet 25 mg PO DAILY #90 tabs 08/29/22 10/07/22 Rx (Jardiance) insulin glargine 100 unit/mL (3 50 unit SUBCUT QPM 08/29/22 10/07/22 History mL) subcutaneous pen (Basaglar KwikPen U-100 Insulin) pen needle, diabetic, safety 31 #100 ea 08/29/22 10/07/22 Rx gauge x 5/16 blood-glucose meter,continuous #1 ea 09/04/22 10/07/22 Rx (Dexcom G7 Bottoming Room Supervisor) blood-glucose sensor (Dexcom G7 #9 ea 09/10/22 10/07/22 Rx Sensor device) oxycodone 5 mg tablet 5 mg PO Q6H PRN pain #20 tabs 10/06/22 10/07/22 Rx levofloxacin 750 mg tablet 750 mg PO DAILY #10 tabs 10/09/22 Rx triamcinolone acetonide 0.5 % 1 applic topical TID #45 grams 10/09/22 Rx topical cream Allergies Allergy/AdvReac Type Severity Reaction Status Date / Time bee venom protein (honey bee) Allergy Severe SWELLING Verified 10/08/22 11:13 Penicillins Allergy Mild Rash Verified 10/06/22 20:57 metformin AdvReac Intermediate Muscle Verified 10/06/22 20:57 Cramps Review of Systems Cardiovascular Comments: No chest pain Respiratory Comments: No shortness of breath Gastrointestinal Comments: Good appetite Integumentary/Breasts Comments: Abrasions both lower extremities Exam Vital Signs (past 8 hours): - 10/09/22 08:25 Temperature 97.2 F L Pulse Rate 73 Respiratory Rate 16 Blood Pressure 138/79 Pulse Oximetry 98 Oxygen Flow Rate 0 Oxygen Delivery Method Room Air Oxygen Flow Rate 0 Narrative Exam Narrative: Generally the patient is a well-developed well-nourished male who is alert oriented and is in no apparent distress. HENWY Other: Normocephalic Skin Other: Small ulcer plantar aspect right great toe with surrounding erythema, no drainage noted Neuro Other: Decreased lower extremity sensation Extrem Other: Slight swelling right great toe, 1+ pedal pulses Objective Labs 10/08/22 05:19 10/08/22 05:19 Labs: Laboratory Results - last 24 hr 10/09/22 09:40 Vancomycin Trough 16.4 PFSH Medical History Chronic low back pain Degenerative tear of glenoid labrum of right shoulder Diabetic ulcer of toe associated with type 2 diabetes mellitus DM type 2 with diabetic dyslipidemia Generalized anxiety disorder History of colonic polyps Mixed hyperlipidemia Persistent proteinuria associated with type 2 diabetes mellitus Primary osteoarthritis involving multiple joints Tobacco use disorder 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 History 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[place], 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, 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 members: significant other Tobacco & Substance Use Smoking Status: Current every day smoker alcohol intake: current Assessment & Plan Assessment and plan (1) Diabetic ulcer of toe associated with type 2 diabetes mellitus: Qualifiers: Laterality: right Non-pressure ulcer stage: with fat layer exposed Qualified Code(s): E11.621 - Type 2 diabetes mellitus with foot ulcer; L97.512 - Non-pressure chronic ulcer of other part of right foot with fat layer exposed Status: Acute (2) Non-pressure chronic ulcer of other part of right foot with fat layer exposed: Status: Acute Plan Recommended surgical debridement. Details were discussed with the patient he appeared understand and agreed to proceed. Also plan for wound cultures, MRI right foot, dressing changes with Hydrofera blue, arterial Doppler, and Darco wedge for pressure offloading. Continue antibiotic therapy and will adjust antibiotics when culture results are available. Follow up at wound center after discharge. The ulcer on the plantar aspect of the right great toe was sharply debrided with a #3 curette (33705). Epidermis, dermis, and subcutaneous tissue were sharply excised. The resulting ulcer measured 1 x 1 cm and was 0.4 cm deep. No purulent fluid was encountered. The wound was cultured then dressed with Hydrofera blue. Bleeding controlled with direct pressure. He tolerated procedure without any pain or discomfort. Time Spent With Patient Time with patient: 30 to 49 minutes with 50% spent counseling/coordinating care
--- NOTE | 2022-10-09 13:32 | CM.DPC ---
DCP Cont: Per MD, Wound Consult with Dr. Mccord yesterday bedside and then returned this afternoon for bedside I&D and recommendation was ultrasound and MRI at 1745 and then pt can now d/c home this evening on oral abx and outpt f/u with [facility]. DIOGO called Hetal at [facility] and she confirms there next open spot is next week ThuOctober 15 with check in at 0830 for 0900 appointment. DIOGO met bedside with pt and Sig Other and updated on f/u appointment at [facility]ound Clinic and likely d/c home tonight and pt very appreciative and glad to be going home tonight. Plan: SW to follow closely after MRI tonight to confirm discharge to home tonight on orals and outpt f/u. WILL Benz
--- NOTE | 2022-10-09 15:42 | P.DS_ITS ---
History of Present Illness History of Present Illness Chief complaint: Infection in foot Narrative: Per history and physical: Mr. Coon is a 51M with PMH Type 2 DM, HL, who presents to the hospital with painful, swollen right toe. He noted a few weeks ago he developed a scab on the plantar surface on his toe. He picked it off and noted an ulcer. He went and was seen by his PCP who debrided his toe and gave him a few days of prophylactic antibiotics. He was subsequently given one week of antibiotics with keflex. He has since noted developing swelling and erythema in his toe. He has no fevers or chills. He has no pus from the toe. In the ED workup was done, vitals notable for afebrile, heart rate 80s, blood pressure 150s/70s, sats 99% on room air. Labs reviewed by me and notable for WBC 11.2, hgb 14.9, plts 217. Na 139, creatinine 0.78. ESR 24, crp 2.5. Foot xray reviewed by me and showed soft tissue gas, no notable bone involvement. He was ordered for antibiotics and admitted for further treatment. Discharge Providers Provider Date of admission: 10/06/22 23:48 Discharge Date: 10/09/22 Primary care physician: Chinedu Alvarez MD Consults: 10/07/22 14:43 Consult to Wound Care Routine Comment: Consulting Provider: [facility] Discharge provider: Maribeth Mathias MD Summary Hospital Course Discharge Diagnosis: 1. Diabetic right great toe ulcer and cellulitis 2. Right rotator cuff injury 3. Generalized musculoskeletal pain involving the left costochondral junction and right chest wall muscle 4. Right dorsal foot rash, felt to be atopic dermatitis 5. Diabetes mellitus type 2, insulin requiring Hospital Course: 1-year-old male with type 2 diabetes, hyperlipidemia, known right shoulder rotator cuff injury who was admitted with a diabetic foot ulcer, cellulitis.? He was initially placed on Zosyn and vancomycin.? Foot x-ray showed no bony involvement.? Sed rate and CRP were minimally elevated leading to a low suspicion for osteomyelitis.? Wound Care consult was placed and Dr. Mccord saw the patient on the morning of discharge, performed a debridement, and ordered both an arterial duplex ultrasound and MRI of the foot. Arterial ultrasound revealed no significant stenosis in the right lower extremity arteries. MRI is pending at the time of this dictation. Dr. Mccord has given permission for discharge and recommends follow-up with the patient in the wound care clinic on October 15. Patient is afebrile at discharge with stable vital signs. Status at Discharge Cognitive/behavioral status at discharge: at baseline, oriented Functional status at discharge: independent ambulation Overall status at discharge: patient is progressing back to baseline Time Spent with Patient Time spent: Greater than 30 minutes (40 minutes spent in examination, coordination of care, and coordination of discharge) Exam Vital Signs (past 8 hours): - 10/09/22 08:25 Temperature 97.2 F L Pulse Rate 73 Respiratory Rate 16 Blood Pressure 138/79 Pulse Oximetry 98 Oxygen Flow Rate 0 Oxygen Delivery Method Room Air Oxygen Flow Rate 0 Narrative Exam Narrative: Please see today's progress note for exam Objective Labs 10/08/22 05:19 10/08/22 05:19 Labs: Laboratory Results - last 24 hr 10/09/22 09:40 Vancomycin Trough 16.4 PFSH Medical History Chronic low back pain Degenerative tear of glenoid labrum of right shoulder Diabetic ulcer of toe associated with type 2 diabetes mellitus DM type 2 with diabetic dyslipidemia Generalized anxiety disorder History of colonic polyps Mixed hyperlipidemia Persistent proteinuria associated with type 2 diabetes mellitus Primary osteoarthritis involving multiple joints Tobacco use disorder 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 X-rays and labs revealed no concern for bone infection. Debridement was performed by wound care physician, Dr Mccord, who will follow-up with you in the outpatient setting as well. Please continue antibiotics as prescribed for the next 10 days. Consider adding a probiotic to help prevent antibiotic associated diarrhea. This can be purchased [id number] at your local pharmacy. Do not pick at the wound, or pull off any scabs. Please follow-up with orthopedic surgery regarding your right rotator cuff injury. Continue using steroid cream on the tops of your feet where the skin has been dry and the rash is (prescription sent to your pharmacy). You can use Vaseline/Eucerin/CeraVe which all available [id number]. It appears this rash is eczema related. Follow-up: Wound care clinic next Thursday, October 15. You will be notified by Care mgmt team of the appointment time. Return to ED: Fevers, worsening foot pain, increased redness or swelling to the foot, shortness of breath, inability to hold down food or fluids Discharge orders & Medications Prescriptions: New triamcinolone acetonide 0.5 % Cream 1 applic topical TID Qty: 45 0RF levofloxacin 750 mg tablet 750 mg PO DAILY Qty: 10 0RF Continued sildenafil 50 mg tablet 50 mg PO DAILY PRN (Reason: sexual activity) Qty: 30 5RF Rx Instructions: administer 30 minutes to 4 hours before activity methocarbamol 500 mg tablet See Rx Instructions .ROUTE .COMPLEX Qty: 60 5RF Dose Instruction: TAKE 1 TABLET BY MOUTH FOUR TIMES DAILY NEEDED FOR SPASMS Rx Instructions: TAKE 1 TABLET BY MOUTH FOUR TIMES DAILY NEEDED FOR SPASMS (DME) Dexcom G7 Commission Associate Misc See Rx Instructions .Route Qty: 1 0RF Rx Instructions: As directed (DME) Dexcom G7 Sensor Device See Rx Instructions .Route Qty: 9 3RF Rx Instructions: As directed oxycodone 5 mg tablet 5 mg PO Q6H PRN (Reason: pain) Qty: 20 0RF Rx Instructions: You may take 1-2 tablets every 6 hours as needed for pain. (DME) OneTouch Verio test strips Strip See Rx Instructions .ROUTE .MEDSUPPLY Qty: 10 Rx Instructions: As directed once daily to check blood glucose insulin glargine [Basaglar KwikPen U-100 Insulin] 100 unit/mL (3 mL) insulin pen 50 unit SUBCUT QPM Jardiance 25 mg tablet 25 mg PO DAILY Qty: 90 3RF (DME) pen needle, diabetic, safety 31 gauge x 5/16 needle See Rx Instructions .Route Qty: 100 3RF Rx Instructions: As directed to use for insulin injection daily multivitamin Tablet 1 tab PO DAILY cholecalciferol (vitamin D3) 125 mcg (5,000 unit) capsule 125 mcg PO DAILY duloxetine 60 mg capsule,delayed release(DR/EC) 60 mg PO DAILY Qty: 90 3RF meloxicam 15 mg tablet 15 mg PO DAILY Qty: 90 3RF rosuvastatin 10 mg tablet 10 mg PO DAILY Qty: 90 3RF (DME) Glucometer See Rx Instructions .Route .MEDSUPPLY Qty: 1 0RF Rx Instructions: As directed Follow up/Referrals: Chinedu Alvarez MD [Primary Care Provider] - Discharge Health Status Multidrug resistant organism: No MDRO Diet/Activity/Treatments Diet: Diet as Tolerated Activity: TOLERATED, try to avoid weight bearing on the infected toe Oxygen: N/A Visit Report/Discharge Packet Instructions: Diabetic Foot Ulcer Stand Alone Forms: Patient Portal/API, Stroke Signs & Symptoms Discharge Data Primary Care Provider: Chinedu Alvarez V
== END 2022-10-09 19:00 | disposition home or self-care (01) | DRG 624 ==
LOC: ED 19:47 → AC 23:49
PROVIDERS: Admitting Provider Internal Medicine; Emergency Provider Emergency Medicine; Family Provider Internal Medicine; PCP Internal Medicine; Referring Provider Emergency Medicine; Visit Provider Internal Medicine
DX: E11.621 Type 2 diabetes mellitus with foot ulcer (principal); E11.628 Type 2 diabetes mellitus with other skin complications; S43.491A Other sprain of right shoulder joint, initial encounter; M75.111 Incomplete rotator cuff tear or rupture of right shoulder, not specified as traumatic; S46.811A Strain of other muscles, fascia and tendons at shoulder and upper arm level, right arm, initial encounter; M19.011 Primary osteoarthritis, right shoulder; L03.031 Cellulitis of right toe; R07.89 Other chest pain; L97.512 Non-pressure chronic ulcer of other part of right foot with fat layer exposed; L20.9 Atopic dermatitis, unspecified; E78.2 Mixed hyperlipidemia; F17.210 Nicotine dependence, cigarettes, uncomplicated; X58.XXXA Exposure to other specified factors, initial encounter; Z79.4 Long term (current) use of insulin; Z79.84 Long term (current) use of oral hypoglycemic drugs; Z20.822 Contact with and (suspected) exposure to COVID-19
CPT/HCPCS: 11042; 36415; 73221; 73630; 73720; 80048; 80053; 80202; 82962; 83605; 85025; 85027; 85651; 86140; 87040; 87070; 87075; 87205; 93926; 96365; 96372; 96375; 99232; 99284; A9270; A9579; J0692; J1170; J1644; J1815; J1885

== ENCOUNTER → 2022-10-15 15:05 | Outpatient (CLI) | payer OTHER, SELFPAY | PROVIDERS: Family Provider Internal Medicine; PCP Internal Medicine; Referring Provider Internal Medicine; Visit Provider Surgery | DX: E11.621 Type 2 diabetes mellitus with foot ulcer (principal); L97.511 Non-pressure chronic ulcer of other part of right foot limited to breakdown of skin; L84 Corns and callosities | CPT/HCPCS: 11042; 99214 ==

== ENCOUNTER → 2022-10-15 15:07 | Outpatient (ROUT) | payer OTHER, SELFPAY ==
[2022-10-07 06:44] VITALS: BMI 29.0
== END ==
PROVIDERS: Family Provider Internal Medicine; PCP Internal Medicine; Visit Provider Surgery
DX: L08.89 Other specified local infections of the skin and subcutaneous tissue (principal)
CPT/HCPCS: 87070; 87075; 87205

== ENCOUNTER → 2022-10-16 15:43 | Outpatient (CLI) | payer OTHER, SELFPAY ==
[2022-10-07 06:44] VITALS: BMI 29.0
[2022-10-16 16:21] LABS: Add Manual Diff / Slide Review NO; Basophils Absolute Auto 0 /uL (0-100); Basophils Percent Auto 0.4 % (0-2); Eosinophils Absolute Auto 200 /uL (0-450); Eosinophils Percent Auto 1.4 % (2-4); Hematocrit 43.6 % (41-53); Hemoglobin 15.3 g/dL (13.5-17.5); Lymphocytes Absolute Auto 2400 /uL (1100-4500); Lymphocytes Percent Auto 21.2 % (25-40); Mean Corpuscular HGB Conc 35.1 % (30-36); Mean Corpuscular Hemoglobin 29.7 PG (26-34); Mean Corpuscular Volume 84.6 fL (80-100); Monocytes Absolute Auto 700 /uL (0-900); Neutrophils Absolute Auto 8100 /uL (1500-7000); Platelet Count 285 X10^3/uL (150-400); Red Blood Cell Count 5.15 X10^6/uL (4.5-5.9); Red Cell Distribution Width 12.6 % (11.6-14.8); White Blood Cell Count 11.4 X10^3/uL (4.5-11.0)
[2022-10-16 17:31] LABS: Aspartate Aminotransferase 22 IU/L (17-59); BUN Creatinine Ratio 33.3 (6-22); Blood Urea Nitrogen 26 mg/dL (9-20); Calcium 9.5 mg/dL (8.4-10.2); Carbon Dioxide 31 mmol/L (22-32); Chloride 99 mmol/L (98-107); Estimated Glomerular Filt Rate > 60 mL/min (>60); Glucose 141 mg/dL (70-100); HEMOLYSIS < 15 (0-50); Potassium 4.1 mmol/L (3.4-5.1); Sodium 137 mmol/L (137-145)
[2022-10-17 05:42] LABS: Labcorp Hemoglobin (Hb) A1c 8.2 % (4.8-5.6)
== END ==
PROVIDERS: Family Provider Internal Medicine; PCP Internal Medicine; Referring Provider Internal Medicine; Visit Provider Internal Medicine
DX: E11.621 Type 2 diabetes mellitus with foot ulcer (principal); E11.69 Type 2 diabetes mellitus with other specified complication; E78.5 Hyperlipidemia, unspecified; L97.509 Non-pressure chronic ulcer of other part of unspecified foot with unspecified severity; M86.9 Osteomyelitis, unspecified
CPT/HCPCS: 36415; 80048; 83036; 84450; 85025

== ENCOUNTER → 2022-10-22 09:25 | Outpatient (CLI) | payer OTHER, SELFPAY ==
[2022-10-07 06:44] VITALS: BMI 29.0
== END ==
PROVIDERS: Family Provider Internal Medicine; PCP Internal Medicine; Referring Provider Internal Medicine; Visit Provider Surgery
DX: E11.621 Type 2 diabetes mellitus with foot ulcer (principal); M86.171 Other acute osteomyelitis, right ankle and foot; L97.511 Non-pressure chronic ulcer of other part of right foot limited to breakdown of skin
CPT/HCPCS: 11042

== ENCOUNTER → 2022-10-29 08:48 | Outpatient (CLI) | payer OTHER, SELFPAY ==
[2022-10-07 06:44] VITALS: BMI 29.0
== END ==
PROVIDERS: Family Provider Internal Medicine; PCP Internal Medicine; Referring Provider Internal Medicine; Visit Provider Surgery
DX: E11.621 Type 2 diabetes mellitus with foot ulcer (principal); M86.171 Other acute osteomyelitis, right ankle and foot
CPT/HCPCS: 11042

== ENCOUNTER → 2022-12-01 10:05 | Outpatient (CLI) | payer OTHER, SELFPAY | PROVIDERS: Family Provider Internal Medicine; PCP Internal Medicine; Referring Provider Internal Medicine; Visit Provider Surgery | DX: E11.621 Type 2 diabetes mellitus with foot ulcer (principal); L97.512 Non-pressure chronic ulcer of other part of right foot with fat layer exposed; M86.171 Other acute osteomyelitis, right ankle and foot; E11.42 Type 2 diabetes mellitus with diabetic polyneuropathy | CPT/HCPCS: 11042; 87070; 87075; 87077; 87205; 99213; 99214 ==

== ENCOUNTER → 2022-12-05 09:34 | Outpatient (CLI) | payer OTHER, SELFPAY | PROVIDERS: Family Provider Internal Medicine; PCP Internal Medicine; Referring Provider Internal Medicine; Visit Provider Physician Assistant | DX: E11.621 Type 2 diabetes mellitus with foot ulcer (principal); L97.512 Non-pressure chronic ulcer of other part of right foot with fat layer exposed; M86.171 Other acute osteomyelitis, right ankle and foot; E11.42 Type 2 diabetes mellitus with diabetic polyneuropathy; L84 Corns and callosities; R60.0 Localized edema | CPT/HCPCS: 99213 ==

== ENCOUNTER → 2022-12-11 09:05 | Outpatient (CLI) | payer OTHER, SELFPAY | PROVIDERS: Family Provider Internal Medicine; PCP Internal Medicine; Referring Provider Internal Medicine; Visit Provider Surgery | DX: E11.621 Type 2 diabetes mellitus with foot ulcer (principal); L97.512 Non-pressure chronic ulcer of other part of right foot with fat layer exposed; M86.171 Other acute osteomyelitis, right ankle and foot; L84 Corns and callosities; R60.0 Localized edema; E11.40 Type 2 diabetes mellitus with diabetic neuropathy, unspecified | CPT/HCPCS: 11042 ==

== ENCOUNTER → 2022-12-18 10:17 | Outpatient (CLI) | payer OTHER, SELFPAY | PROVIDERS: Family Provider Internal Medicine; PCP Internal Medicine; Referring Provider Internal Medicine; Visit Provider Surgery | DX: E11.621 Type 2 diabetes mellitus with foot ulcer (principal); L97.512 Non-pressure chronic ulcer of other part of right foot with fat layer exposed; M86.171 Other acute osteomyelitis, right ankle and foot; E11.42 Type 2 diabetes mellitus with diabetic polyneuropathy; L84 Corns and callosities; R60.0 Localized edema | CPT/HCPCS: 11042 ==

== ENCOUNTER → 2022-12-22 10:55 | Outpatient (CLI) | payer OTHER, SELFPAY | PROVIDERS: Family Provider Internal Medicine; PCP Internal Medicine; Referring Provider Internal Medicine; Visit Provider Surgery | DX: E11.621 Type 2 diabetes mellitus with foot ulcer (principal); L97.512 Non-pressure chronic ulcer of other part of right foot with fat layer exposed; L84 Corns and callosities | CPT/HCPCS: 29445 ==

== ENCOUNTER → 2022-12-25 09:44 | Outpatient (CLI) | payer OTHER, SELFPAY | PROVIDERS: Family Provider Internal Medicine; PCP Internal Medicine; Referring Provider Internal Medicine; Visit Provider Surgery | DX: L97.512 Non-pressure chronic ulcer of other part of right foot with fat layer exposed (principal); E11.621 Type 2 diabetes mellitus with foot ulcer; M86.171 Other acute osteomyelitis, right ankle and foot; L84 Corns and callosities; E11.42 Type 2 diabetes mellitus with diabetic polyneuropathy | CPT/HCPCS: 11042 ==

== ENCOUNTER → 2023-01-01 14:01 | Outpatient (CLI) | payer OTHER, SELFPAY | PROVIDERS: Family Provider Internal Medicine; PCP Internal Medicine; Referring Provider Internal Medicine; Visit Provider Surgery | DX: E11.621 Type 2 diabetes mellitus with foot ulcer (principal); L97.512 Non-pressure chronic ulcer of other part of right foot with fat layer exposed; M86.171 Other acute osteomyelitis, right ankle and foot; L84 Corns and callosities; R60.0 Localized edema | CPT/HCPCS: 11042; 99213 ==

== ENCOUNTER 2023-01-09 10:40 | Emergency (ER) | payer OTHER, SELFPAY ==
[2023-01-09 10:50] VITALS: BP 171/82; PULSE 96; RESP 14; TEMP 36.7; O2SAT 99; BMI 30.4
--- NOTE | 2023-01-09 11:00 | DI.RAD.S_ITS ---
PROCEDURE: XR FOOT RT MIN 3V INDICATIONS: mid outer aspect pain, atraumatic. being tx for 1st toe infe TECHNIQUE: 3 views of the foot were acquired. COMPARISON: [facility], , XR FOOT RT MIN 3V, 10/06/2022, 20:10. FINDINGS: Bones: Nondisplaced 5th metatarsal base fracture. No suspicious bony lesions. No distinct erosions. Soft tissues: No tibiotalar joint effusion. Achilles tendon appears normal. IMPRESSION: Nondisplaced 5th metatarsal base fracture. Dictated by: Rachna Bellamy M.D. on 01/09/2023 at 11:55 Approved by: Rachna Bellamy M.D. on 01/09/2023 at 11:56
--- NOTE | 2023-01-09 11:30 | ED.EXTPRO ---
HPI - Extremity Problem General Chief complaint: Extremity Problem,Nontraumatic Stated complaint: Bone infection rt foot, Time Seen by Provider: 01/09/23 11:23 Source: patient Mode of arrival: Ambulatory History of Present Illness HPI Narrative: Patient here for right proximal lateral foot pain. Patient was walking in his home barefooted and felt a pop in his foot. Denies any skin injury. Was not on any uneven surface. Patient is being followed wound clinic for great toe infection. Patient does not see a toll collector. Patient already has orthotic footwear for his foot/toe. He does need crutches. X-ray does show closed fracture of the 5th proximal metatarsal bone Related Data Home Medications Medication Instructions Recorded Confirmed cholecalciferol (vitamin D3) 125 125 mcg PO DAILY 10/25/21 10/16/22 mcg (5,000 unit) capsule multivitamin 1 tab PO DAILY 10/25/21 10/16/22 blood sugar diagnostic (OneTouch #10 ea 08/29/22 10/16/22 Verio test strips) insulin glargine 100 unit/mL (3 50 unit SUBCUT QPM 08/29/22 10/16/22 mL) subcutaneous pen (Basaglar KwikPen U-100 Insulin) Previous Rx's Medication Instructions Recorded Glucometer #1 ea 02/12/22 duloxetine 60 mg capsule,delayed 60 mg PO DAILY #90 caps 02/12/22 release meloxicam 15 mg tablet 15 mg PO DAILY #90 tabs 02/12/22 rosuvastatin 10 mg tablet 10 mg PO DAILY #90 tabs 02/12/22 sildenafil 50 mg tablet 50 mg PO DAILY PRN sexual activity 05/19/22 #30 tabs methocarbamol 500 mg tablet See Rx Instructions .Route 07/24/22 .COMPLEX #60 tabs empagliflozin 25 mg tablet 25 mg PO DAILY #90 tabs 08/29/22 (Jardiance) pen needle, diabetic, safety 31 #100 ea 08/29/22 gauge x 5/16 blood-glucose meter,continuous #1 ea 09/04/22 (Dexcom G7 Patient Access Registrar) blood-glucose sensor (Dexcom G7 #9 ea 09/10/22 Sensor device) triamcinolone acetonide 0.5 % 1 applic topical TID #45 grams 10/09/22 topical cream levofloxacin 750 mg tablet 750 mg PO DAILY #10 tabs 10/16/22 mirtazapine 15 mg tablet 15 mg PO DAILY #90 tabs 12/16/22 oxycodone 5 mg tablet 5 mg PO Q6H PRN pain #30 tabs 01/20/23 Allergies Allergy/AdvReac Type Severity Reaction Status Date / Time bee venom protein (honey bee) Allergy Severe SWELLING Verified 01/09/23 11:09 Penicillins Allergy Mild Rash Verified 01/09/23 11:09 metformin AdvReac Intermediate Muscle Verified 01/09/23 11:09 Cramps Review of Systems Review of Systems Narrative: GENERAL: negative chills, fatigue, malaise, fever, sweats. HEENT: negative sinus pain, ear pain, sore throat RESPIRATORY: negative dyspnea, cough CARDIOVASCULAR: negative chest pain, palpitations GASTROINTESTINAL: negative nausea, vomiting, abdominal pain : negative dysuria, frequency, hematuria MUSCULOSKELETAL: Positive muscle or bony pain SKIN: negative rash, skin lesions NEUROLOGIC: negative weakness, numbness ROS Unobtainable: All systems reviewed & are unremarkable except as noted in HPI and below Patient History Medical History Chronic low back pain Degenerative tear of glenoid labrum of right shoulder Diabetic ulcer of toe associated with type 2 diabetes mellitus DM type 2 with diabetic dyslipidemia Generalized anxiety disorder History of colonic polyps Mixed hyperlipidemia Osteomyelitis of toe of right foot Persistent proteinuria associated with type 2 diabetes mellitus Primary osteoarthritis involving multiple joints Right rotator cuff tear Tobacco use disorder 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 EXTREMITIES: No gross deformities. Examination right foot. Shoe and sock removed. Ankle nontender no edema. There is bruising edema to the lateral foot. Tenderness to the proximal 5th metatarsal bone. Foot warm soft and pink. Strong pedal pulse. Bandage over the great toe. NEURO: AOx4. SKIN: Warm and dry PSYCH: Not anxious, is cooperative Initial Vital Signs Initial Vital Signs: Vital Signs Temperature 98.0 F 01/09/23 10:50 Pulse Rate 96 H 01/09/23 10:50 Respiratory Rate 14 01/09/23 10:50 Blood Pressure 171/82 H 01/09/23 10:50 Pulse Oximetry 99 01/09/23 10:50 Oxygen Delivery Method Room Air 01/09/23 10:50 Course Orders Ordered: ED Orders 01/09/23 11:00 XR foot RT min 3V Stat Vital Signs Vital signs: Vital Signs - 8 hr 01/09/23 10:50 Temperature 98.0 F Pulse Rate 96 H Respiratory Rate 14 Blood Pressure 171/82 H Pulse Oximetry 99 Oxygen Delivery Method Room Air MDM - Extremity (Nontraumatic) Imaging Data Extremity x-ray #1: Radiologist's Impression: [address] [address] XRay Report Signed Patient: Dean Coon MR#: [id number] : 1970 Acct:[id number] Age/Sex: 52 / M Date of Service: 01/09/23 Loc: ED Accession Number: [id number] ?? Procedure: XR foot RT min 3V Ordering Provider: Wayne Villanueva MD PROCEDURE:? XR FOOT RT MIN 3V ? INDICATIONS:? mid outer aspect pain, atraumatic. being tx for 1st toe infe ? TECHNIQUE:? 3 views of the foot were acquired.? ? COMPARISON:? [facility], , XR FOOT RT MIN 3V, 10/06/2022, 20:10. ? FINDINGS:? ? Bones:? Nondisplaced 5th metatarsal base fracture.? No suspicious bony lesions.? No distinct erosions. ? Soft tissues:? No tibiotalar joint effusion.? Achilles tendon appears normal.? ? ? IMPRESSION:? Nondisplaced 5th metatarsal base fracture.? ? ? Dictated by: Rachna Bellamy M.D. on 01/09/2023 at 11:55 ? ? Approved by: Rachna Bellamy M.D. on 01/09/2023 at 11:56 ? [facility] Narrative Medical decision making narrative: Patient here for right proximal lateral foot pain. Patient was walking in his home barefooted and felt a pop in his foot. Denies any skin injury. Was not on any uneven surface. Patient is being followed wound clinic for great toe infection. Patient does not see a toll collector. Patient already has orthotic footwear for his foot/toe. He does need crutches. X-ray does show closed fracture of the 5th proximal metatarsal bone After history and exam x-ray right foot MDM CC: Right foot pain Complicating co-morbidities: History of chronic right skin injury Data collected from: Patient Medical records reviewed: No recent visit for this complaint Differential considered: Includes but not limited to foot fracture foot contusion foot sprain Exam documented above, pertinent findings include: Tenderness bruising edema lateral foot Imaging studies independently reviewed: X-ray right foot fracture of the 5th metatarsal bone proximally Treatments: Crutches Re-evaluations: Reviewed exam and x-ray results with patient. He does have prescribed pain medication by primary care at home hydrocodone. Referral for orthopedics/for Given to patient. Crutches provided with patient's orthotic shoe wear. Return precautions reviewed. He desires discharge home Discussion: Appropriate for discharge home. Exam is reassuring. Referral for Orthopedics/Podiatry given. Pain is controlled. Patient has prescribed pain medication by primary care at home. Nontoxic at discharge. Return precautions reviewed with him. He desires discharge home Diagnosis: Right foot fracture Discharge Plan Departure Patient Disposition: Home Clinical Impression: Foot fracture, right Instructions: DI for Foot Fracture Activity Restrictions/Additional Instructions: Please use crutches when ambulating/walking. Call provided orthopedic office today for office re-evaluation of your foot injury next week. May continue home pain medication. Return if worse if any questions or concerns. Prescriptions: No Action sildenafil 50 mg tablet 50 mg PO DAILY PRN (Reason: sexual activity) Qty: 30 5RF Rx Instructions: administer 30 minutes to 4 hours before activity methocarbamol 500 mg tablet See Rx Instructions .ROUTE .COMPLEX Qty: 60 5RF Dose Instruction: TAKE 1 TABLET BY MOUTH FOUR TIMES DAILY NEEDED FOR SPASMS Rx Instructions: TAKE 1 TABLET BY MOUTH FOUR TIMES DAILY NEEDED FOR SPASMS (DME) Dexcom G7 Patient Access Registrar Misc See Rx Instructions .Route Qty: 1 0RF Rx Instructions: As directed (DME) Dexcom G7 Sensor Device See Rx Instructions .Route Qty: 9 3RF Rx Instructions: As directed mirtazapine 15 mg tablet 15 mg PO DAILY Qty: 90 3RF oxycodone 5 mg tablet 5 mg PO Q6H PRN (Reason: pain) Qty: 30 0RF Rx Instructions: You may take 1-2 tablets every 6 hours as needed for pain. (DME) OneTouch Verio test strips Strip See Rx Instructions .ROUTE .MEDSUPPLY Qty: 10 Rx Instructions: As directed once daily to check blood glucose insulin glargine [Basaglar KwikPen U-100 Insulin] 100 unit/mL (3 mL) insulin pen 50 unit SUBCUT QPM Jardiance 25 mg tablet 25 mg PO DAILY Qty: 90 3RF (DME) pen needle, diabetic, safety 31 gauge x 5/16 needle See Rx Instructions .Route Qty: 100 3RF Rx Instructions: As directed to use for insulin injection daily multivitamin Tablet 1 tab PO DAILY cholecalciferol (vitamin D3) 125 mcg (5,000 unit) capsule 125 mcg PO DAILY duloxetine 60 mg capsule,delayed release(DR/EC) 60 mg PO DAILY Qty: 90 3RF meloxicam 15 mg tablet 15 mg PO DAILY Qty: 90 3RF rosuvastatin 10 mg tablet 10 mg PO DAILY Qty: 90 3RF (DME) Glucometer See Rx Instructions .Route .MEDSUPPLY Qty: 1 0RF Rx Instructions: As directed levofloxacin 750 mg tablet 750 mg PO DAILY Qty: 10 0RF triamcinolone acetonide 0.5 % Cream 1 applic topical TID Qty: 45 0RF Referrals: Chinedu Alvarez MD [Primary Care Provider] - Samy Mcclendon MD [Physician] - Stand Alone Forms: Patient Portal/API
== END 2023-01-09 12:20 | disposition home or self-care (01) ==
PROVIDERS: Emergency Provider Emergency Medicine; Family Provider Internal Medicine; PCP Internal Medicine
DX: S92.351A Displaced fracture of fifth metatarsal bone, right foot, initial encounter for closed fracture (principal); X58.XXXA Exposure to other specified factors, initial encounter; Z79.899 Other long term (current) drug therapy
CPT/HCPCS: 73630; 99283

== ENCOUNTER → 2023-01-13 09:59 | Outpatient (CLI) | payer OTHER, SELFPAY | PROVIDERS: Family Provider Internal Medicine; PCP Internal Medicine; Referring Provider Internal Medicine; Visit Provider Surgery | DX: E11.621 Type 2 diabetes mellitus with foot ulcer (principal); L97.512 Non-pressure chronic ulcer of other part of right foot with fat layer exposed; M86.171 Other acute osteomyelitis, right ankle and foot; E11.40 Type 2 diabetes mellitus with diabetic neuropathy, unspecified; R60.0 Localized edema; L84 Corns and callosities | CPT/HCPCS: 11042; 99213 ==

== ENCOUNTER → 2023-01-29 10:15 | Outpatient (CLI) | payer OTHER, SELFPAY | PROVIDERS: Family Provider Internal Medicine; PCP Internal Medicine; Referring Provider Internal Medicine; Visit Provider Surgery | DX: E11.621 Type 2 diabetes mellitus with foot ulcer (principal); L97.512 Non-pressure chronic ulcer of other part of right foot with fat layer exposed; M86.171 Other acute osteomyelitis, right ankle and foot; E11.29 Type 2 diabetes mellitus with other diabetic kidney complication; E11.40 Type 2 diabetes mellitus with diabetic neuropathy, unspecified; F17.210 Nicotine dependence, cigarettes, uncomplicated; L84 Corns and callosities; R60.0 Localized edema | CPT/HCPCS: 11042; 87070; 87075; 87077; 87147; 87186; 87205; 99213 ==

== ENCOUNTER → 2023-02-05 10:21 | Outpatient (CLI) | payer OTHER, SELFPAY | PROVIDERS: Family Provider Internal Medicine; PCP Internal Medicine; Referring Provider Internal Medicine; Visit Provider Surgery | DX: E11.621 Type 2 diabetes mellitus with foot ulcer (principal); L97.512 Non-pressure chronic ulcer of other part of right foot with fat layer exposed; M86.171 Other acute osteomyelitis, right ankle and foot; E11.40 Type 2 diabetes mellitus with diabetic neuropathy, unspecified; R60.0 Localized edema; L84 Corns and callosities | CPT/HCPCS: 11042; 99213 ==

== ENCOUNTER → 2023-02-12 09:11 | Outpatient (CLI) | payer OTHER, SELFPAY | PROVIDERS: Family Provider Internal Medicine; PCP Internal Medicine; Referring Provider Internal Medicine; Visit Provider Surgery | DX: E11.621 Type 2 diabetes mellitus with foot ulcer (principal); L97.512 Non-pressure chronic ulcer of other part of right foot with fat layer exposed; M86.171 Other acute osteomyelitis, right ankle and foot; E11.42 Type 2 diabetes mellitus with diabetic polyneuropathy; E11.40 Type 2 diabetes mellitus with diabetic neuropathy, unspecified; R60.0 Localized edema; L84 Corns and callosities | CPT/HCPCS: 11042 ==

== ENCOUNTER → 2023-02-19 10:24 | Outpatient (CLI) | payer OTHER, SELFPAY | PROVIDERS: Family Provider Internal Medicine; PCP Internal Medicine; Referring Provider Internal Medicine; Visit Provider Surgery | DX: E11.621 Type 2 diabetes mellitus with foot ulcer (principal); L97.512 Non-pressure chronic ulcer of other part of right foot with fat layer exposed; M86.171 Other acute osteomyelitis, right ankle and foot; L84 Corns and callosities; L53.9 Erythematous condition, unspecified; E11.40 Type 2 diabetes mellitus with diabetic neuropathy, unspecified | CPT/HCPCS: 11042; 87070; 87075; 87077; 87147; 87186; 87205; 99213 ==

== ENCOUNTER → 2023-02-26 08:40 | Outpatient (CLI) | payer OTHER, SELFPAY | PROVIDERS: Family Provider Internal Medicine; PCP Internal Medicine; Referring Provider Internal Medicine; Visit Provider Surgery | DX: E11.621 Type 2 diabetes mellitus with foot ulcer (principal); L97.512 Non-pressure chronic ulcer of other part of right foot with fat layer exposed; M86.171 Other acute osteomyelitis, right ankle and foot; L84 Corns and callosities; L53.9 Erythematous condition, unspecified; E11.40 Type 2 diabetes mellitus with diabetic neuropathy, unspecified; Z72.0 Tobacco use | CPT/HCPCS: 11042 ==

== ENCOUNTER → 2023-03-05 09:45 | Outpatient (CLI) | payer OTHER, SELFPAY | PROVIDERS: Family Provider Internal Medicine; PCP Internal Medicine; Referring Provider Internal Medicine; Visit Provider Surgery | DX: E11.621 Type 2 diabetes mellitus with foot ulcer (principal); L97.512 Non-pressure chronic ulcer of other part of right foot with fat layer exposed; M86.171 Other acute osteomyelitis, right ankle and foot; R60.0 Localized edema; L53.9 Erythematous condition, unspecified | CPT/HCPCS: 11042; 99212; 99213 ==

== ENCOUNTER → 2023-03-10 14:13 | Outpatient (CLI) | payer OTHER, SELFPAY ==
[2023-03-10 15:18] LABS: Aspartate Aminotransferase 33 IU/L (17-59); BUN Creatinine Ratio 34.2 (6-22); Blood Urea Nitrogen 26 mg/dL (9-20); Calcium 10.2 mg/dL (8.4-10.2); Carbon Dioxide 32 mmol/L (22-32); Chloride 100 mmol/L (98-107); Estimated Glomerular Filt Rate > 60 mL/min (>60); Glucose 171 mg/dL (70-100); HEMOLYSIS 30 (0-50); Potassium 4.4 mmol/L (3.4-5.1); Sodium 139 mmol/L (137-145)
[2023-03-10 15:37] LABS: Hemoglobin A1C% w Est Avg Glu 8.1 % (4.0-6.0)
[2023-03-10 16:08] LABS: Creatinine Urine Random 61.3 mg/dL
[2023-03-10 16:13] LABS: Microalbumi Creatinin Ratio Ur 174.5 ug/mg CR (<30); Microalbumin Urine Random 10.7 mg/dL (0-1.6)
== END ==
PROVIDERS: Family Provider Internal Medicine; PCP Internal Medicine; Referring Provider Internal Medicine; Visit Provider Internal Medicine
DX: E11.621 Type 2 diabetes mellitus with foot ulcer (principal); L97.509 Non-pressure chronic ulcer of other part of unspecified foot with unspecified severity; E78.2 Mixed hyperlipidemia
CPT/HCPCS: 80048; 82043; 82570; 83036; 84450

== ENCOUNTER → 2023-03-12 10:24 | Outpatient (CLI) | payer OTHER, SELFPAY | PROVIDERS: Family Provider Internal Medicine; PCP Internal Medicine; Referring Provider Internal Medicine; Visit Provider Surgery | DX: L97.512 Non-pressure chronic ulcer of other part of right foot with fat layer exposed (principal); E11.621 Type 2 diabetes mellitus with foot ulcer; M86.171 Other acute osteomyelitis, right ankle and foot; E11.42 Type 2 diabetes mellitus with diabetic polyneuropathy; L84 Corns and callosities; L53.9 Erythematous condition, unspecified | CPT/HCPCS: 11042 ==

== ENCOUNTER → 2023-03-19 11:03 | Outpatient (CLI) | payer OTHER, SELFPAY | PROVIDERS: Family Provider Internal Medicine; PCP Internal Medicine; Referring Provider Internal Medicine; Visit Provider Surgery | DX: E11.621 Type 2 diabetes mellitus with foot ulcer (principal); L97.512 Non-pressure chronic ulcer of other part of right foot with fat layer exposed; M86.171 Other acute osteomyelitis, right ankle and foot; E11.42 Type 2 diabetes mellitus with diabetic polyneuropathy | CPT/HCPCS: 11042 ==

== ENCOUNTER → 2023-04-06 08:29 | Outpatient (CLI) | payer OTHER, SELFPAY | PROVIDERS: Family Provider Internal Medicine; PCP Internal Medicine; Referring Provider Internal Medicine; Visit Provider Surgery | DX: L97.512 Non-pressure chronic ulcer of other part of right foot with fat layer exposed (principal); E11.621 Type 2 diabetes mellitus with foot ulcer; M86.171 Other acute osteomyelitis, right ankle and foot; E11.42 Type 2 diabetes mellitus with diabetic polyneuropathy | CPT/HCPCS: 11042; 99213 ==

== ENCOUNTER → 2023-04-13 08:38 | Outpatient (CLI) | payer OTHER, SELFPAY | PROVIDERS: Family Provider Internal Medicine; PCP Internal Medicine; Referring Provider Internal Medicine; Visit Provider Surgery | DX: L97.512 Non-pressure chronic ulcer of other part of right foot with fat layer exposed (principal); E11.621 Type 2 diabetes mellitus with foot ulcer; M86.171 Other acute osteomyelitis, right ankle and foot; L53.9 Erythematous condition, unspecified; F17.200 Nicotine dependence, unspecified, uncomplicated; E78.2 Mixed hyperlipidemia | CPT/HCPCS: 11042 ==

== ENCOUNTER → 2023-04-20 08:53 | Outpatient (CLI) | payer OTHER, SELFPAY | PROVIDERS: Family Provider Internal Medicine; PCP Internal Medicine; Referring Provider Internal Medicine; Visit Provider Surgery | DX: L97.512 Non-pressure chronic ulcer of other part of right foot with fat layer exposed (principal); E11.621 Type 2 diabetes mellitus with foot ulcer; M86.171 Other acute osteomyelitis, right ankle and foot; E11.42 Type 2 diabetes mellitus with diabetic polyneuropathy; L97.412 Non-pressure chronic ulcer of right heel and midfoot with fat layer exposed | CPT/HCPCS: 11042 ==

== ENCOUNTER → 2023-05-05 08:45 | Outpatient (CLI) | payer OTHER, SELFPAY | PROVIDERS: Family Provider Internal Medicine; PCP Internal Medicine; Referring Provider Internal Medicine; Visit Provider Surgery | DX: E11.621 Type 2 diabetes mellitus with foot ulcer (principal); L97.511 Non-pressure chronic ulcer of other part of right foot limited to breakdown of skin; R23.4 Changes in skin texture; M86.171 Other acute osteomyelitis, right ankle and foot; E11.42 Type 2 diabetes mellitus with diabetic polyneuropathy; F17.210 Nicotine dependence, cigarettes, uncomplicated | CPT/HCPCS: 99212; 99213 ==

== ENCOUNTER → 2023-05-26 09:04 | Outpatient (CLI) | payer OTHER, SELFPAY | LOC: WC 09:07 | PROVIDERS: Family Provider Internal Medicine; PCP Internal Medicine; Referring Provider Internal Medicine; Visit Provider Surgery | DX: Z09 Encounter for follow-up examination after completed treatment for conditions other than malignant neoplasm (principal); Z86.31 Personal history of diabetic foot ulcer | CPT/HCPCS: 99212; 99213 ==

== ENCOUNTER → 2023-06-29 07:54 | Outpatient (CLI) | payer OTHER, SELFPAY ==
[2023-06-29 08:38] LABS: Hemoglobin A1C% w Est Avg Glu 7.8 % (4.0-6.0)
[2023-06-29 08:43] LABS: Hematocrit 43.3 % (41-53); Hemoglobin 15.2 g/dL (13.5-17.5); Mean Corpuscular HGB Conc 35.1 % (30-36); Mean Corpuscular Hemoglobin 30.3 PG (26-34); Mean Corpuscular Volume 86.4 fL (80-100); Platelet Count 178 X10^3/uL (150-400); Red Blood Cell Count 5.01 X10^6/uL (4.5-5.9); Red Cell Distribution Width 12.9 % (11.6-14.8); White Blood Cell Count 7.3 X10^3/uL (4.5-11.0)
[2023-06-29 08:54] LABS: BUN Creatinine Ratio 26.2 (6-22); Blood Urea Nitrogen 22 mg/dL (9-20); Calcium 8.4 mg/dL (8.4-10.2); Carbon Dioxide 29 mmol/L (22-32); Chloride 100 mmol/L (98-107); Estimated Glomerular Filt Rate > 60 mL/min (>60); Glucose 214 mg/dL (70-100); HEMOLYSIS < 15 (0-50); Potassium 4.4 mmol/L (3.4-5.1); Sodium 135 mmol/L (137-145)
[2023-06-29 09:14] LABS: TSH w/ Reflex to FT4 1.16 uIU/mL (0.47-4.68)
[2023-06-29 09:18] LABS: Prostate Specific Antigen Scrn 0.119 ng/mL (0.1-4.0)
== END ==
PROVIDERS: Family Provider Internal Medicine; PCP Internal Medicine; Referring Provider Internal Medicine; Visit Provider Internal Medicine
DX: G47.9 Sleep disorder, unspecified (principal); E78.2 Mixed hyperlipidemia; E11.621 Type 2 diabetes mellitus with foot ulcer; L97.509 Non-pressure chronic ulcer of other part of unspecified foot with unspecified severity; E11.29 Type 2 diabetes mellitus with other diabetic kidney complication; R80.9 Proteinuria, unspecified; Z12.5 Encounter for screening for malignant neoplasm of prostate
CPT/HCPCS: 36415; 80048; 83036; 84443; 85027; G0103

== ENCOUNTER → 2023-10-27 11:26 | Outpatient (CLI) | payer OTHER, SELFPAY ==
--- NOTE | 2023-10-27 11:27 | DI.RAD.S_ITS ---
PROCEDURE: XR CHEST 2V INDICATIONS: cough TECHNIQUE: 2 views of the chest were acquired. COMPARISON: None. FINDINGS: Surgical changes and devices: Prior right clavicular ORIF. Lungs and pleura: Expiratory chest demonstrating bronchovascular crowding and interstitial prominence. No focal opacity, pleural effusion or pneumothorax. Mediastinum: Mediastinal contours are normal. Heart size is normal. Bones and chest wall: No suspicious bony abnormalities. Soft tissues appear unremarkable. IMPRESSION: Expiratory chest demonstrating no definitive acute cardiopulmonary process. Dictated by: Matthew Hayden [facility] Interpreted: Rachna Bellamy MD on 10/27/2023 at 11:46 Transcribed by: ABRAM on 10/27/2023 at 11:46 Approved by: Rachna Bellamy M.D. on 10/27/2023 at 21:35
== END ==
PROVIDERS: Family Provider Internal Medicine; PCP Internal Medicine; Referring Provider Internal Medicine; Visit Provider Internal Medicine
DX: J32.9 Chronic sinusitis, unspecified (principal)
CPT/HCPCS: 71046

== ENCOUNTER → 2023-10-31 10:52 | Outpatient (CLI) | payer OTHER, SELFPAY ==
--- NOTE | 2023-10-31 10:53 | DI.CT.S_ITS ---
PROCEDURE: CT SINUS SCREEN WO CON INDICATIONS: sinus pressure TECHNIQUE: Noncontrast 3.0 mm axial images acquired from the frontal sinuses to the mid-sella, with coronal and sagittal reformats. For radiation dose reduction, the following was used: automated exposure control, adjustment of mA and/or kV according to patient size. COMPARISON: None. FINDINGS: Image quality: Excellent. Bilateral maxillary sinus mucosal thickening measures 6-7 mm in thickness instructs both ostiomeatal units. No air-fluid levels or remodeling. Mucosal thickening in both ethmoid and sphenoid sinuses noted as well. Air-fluid level in the right sphenoid sinus. Mucosal thickening along the floors of both left frontal sinuses also results in obstruction of the frontal recesses. No osseous remodeling throughout the exam. Miscellaneous: Visualized intra-orbital contents are normal. No volodymyr bullosa or paradoxical turbinate curvature. No nasal septal deviation. IMPRESSION: Pansinusitis. Obstruction of the bilateral ostiomeatal units and frontal recesses REFERENCE TEXT DELETE FROM FINAL REPORT Anatomic variants predisposing to FESS complications: o Cribriform plate: intact or dehiscent. Keros classification for depth of olfactory fossa (lateral lamella). Type 1: <3 mm deep. Type 2: 3-7 mm deep. Type 3: >7 mm deep. o Lamina papyracea: intact, congenital or post traumatic dehiscence. Prolapse of orbital fat into ethmoid sinuses? Uncinate process contacts the medial orbital wall? o Onodi cells: present or absent. posterosuperior sphenoid sinuses, close proximity to optic canals. o Sphenoid sinus pneumatization patterns: conchal, presellar, or sellar. Extension of pneumatization into anterior clinoid processes? Bony margins of optic nerve and carotid canals: intact, thinned, dehiscent. Locate foramen ovale (axial images), foramen rotundum, and vidian canal. o Anterior ethmoid artery notches: protect (abutting the fovea ethmoidalis), or vulnerable (supraorbital pneumatization above the anterior ethmoid notch). Sinus drainage pathways: * Frontal, anterior ethmoid, and maxillary sinuses drain into anterior ostiomeatal complex: frontal sinus ostia, frontal recess, maxillary sinus ostia, ethmoid infundibulum, hiatus semilunaris, middle meatus. * Sphenoid and posterior ethmoid sinuses drain into sphenoethmoidal recess and superior meatus. Anatomic variants: * Nasal septum: deviation, bone spurs, obstructing inferior turbinates. * Ostiomeatal complex: infraorbital Carmen cells, volodymyr bullosa & volodymyr lamella, paradoxical curvature of middle turbinates (lateral convexity), uncinate cells. * Anterior uncinate process attachment: o Skull base/middle turbinate: frontal recess drains into ethmoid infundibulum first, then middle meatus. o Lamina papyracea/agger nasi: frontal recess drains directly into middle meatus. Disease in recessus terminalis of ethmoid infundibulum may displace uncinate process medially against middle turbinate. * Sphenoid sinus: o Anterior clinoid process, and pterygoid recess pneumatization (between foramen rotundum and Vidian canal). o Onodi cells: posterior ethmoids extending above sphenoid sinuses, in close proximity to optic canals. o Arrested pneumatization: near Vidian canal. * Varinder classification for frontal recess cells: Look first for agger nasi and ethmoid bulla (largest anterior ethmoid cell bordered posteriorly by basal lamella of middle turbinate). o Type 1: single cell above agger nasi. o Type 2: 2 or more cells stacked above agger nasi. o Type 3: single large cell above agger nasi, extending into true frontal sinus. o Type 4: isolated cell inside frontal sinus; does not abut agger nasi. o Supraorbital ethmoid cell: extends from frontal recess, posterior wall is the skull base. Situated behind frontal sinus on axial images. o Frontal bullar cell: cell above ethmoid bulla extending into frontal sinus. o Suprabullar cells: cell above ethmoid bulla, does not extend into frontal sinus. o Interfrontal sinus septal cell: pneumatized frontal sinus septum, asscd with pneumatized kris avani. Frontal recess causes of failed FESS: o Residual frontal recess cells. o Residual superior portion of uncinate process. o Lateralized middle turbinate remnants cause obstruction; medially deviated remnants is a normal postop finding. o Osteoneogenesis from chronic inflammation. o Scarring and inflammatory mucosal thickening: provide thickness measurements. o Recurrent polyposis. Approved by: Chris Claudio M.D. on 11/02/2023 at 19:14
== END ==
PROVIDERS: Family Provider Internal Medicine; PCP Internal Medicine; Referring Provider Internal Medicine; Visit Provider Internal Medicine
DX: J32.4 Chronic pansinusitis (principal)
CPT/HCPCS: 70486

== ENCOUNTER → 2023-12-09 14:28 | Outpatient (CLI) | payer OTHER, SELFPAY | LOC: WC 14:29 | PROVIDERS: Family Provider Internal Medicine; PCP Internal Medicine; Referring Provider Internal Medicine; Visit Provider Surgery | DX: E11.621 Type 2 diabetes mellitus with foot ulcer (principal); E11.42 Type 2 diabetes mellitus with diabetic polyneuropathy; L97.512 Non-pressure chronic ulcer of other part of right foot with fat layer exposed; L84 Corns and callosities; F17.210 Nicotine dependence, cigarettes, uncomplicated | CPT/HCPCS: 11042; 87070; 87075; 87205; 99214 ==

== ENCOUNTER → 2023-12-10 07:30 | Outpatient (CLI) | payer OTHER, SELFPAY ==
--- NOTE | 2023-12-10 | DI.CT.S_ITS ---
PROCEDURE: CT SINUS SCREEN WO CON INDICATIONS: CHRONIC PANSINUSITIS/FACIAL PAIN/HEADACHE SYNDROME TECHNIQUE: Noncontrast 3.0 mm axial images acquired from the frontal sinuses to the mid-sella, with coronal and sagittal reformats. For radiation dose reduction, the following was used: automated exposure control, adjustment of mA and/or kV according to patient size. COMPARISON: [facility], CT, CT SINUS SCREEN WO CON, 10/31/2023, 11:06. FINDINGS: Image quality: Excellent. Maxillary Sinuses: No bony remodeling or destruction. [id number] bilateral mucosal thickening. Ethmoid Air Cells: No bony remodeling or destruction. Mucosal thickening and partial opacification bilaterally. Sphenoid Sinuses: No bony remodeling or destruction. Mild mucosal thickening bilaterally. Mildly improved compared to prior Frontal Sinuses: No bony remodeling or destruction. Sinuses are clear. Ostiomeatal Complexes: Ostiomeatal complexes are opacified. No Carmen cells. Miscellaneous: Visualized intra-orbital contents are normal. No volodymyr bullosa or paradoxical turbinate curvature. Mild rightward nasal septal deviation. IMPRESSION: Redemonstration of pansinusitis as described above. There is mild improvement in the sphenoid sinus mucosal thickening. Otherwise, similar compared to prior and most pronounced within the ethmoid air cells. Dictated by: Amado Rosales M.D. on 12/10/2023 at 10:15 Approved by: Amado Rosales M.D. on 12/10/2023 at 10:18
--- NOTE | 2023-12-10 07:31 | DI.RAD.S_ITS ---
PROCEDURE: XR FOOT RT MIN 3V INDICATIONS: diabetic foot ulcer right great toe TECHNIQUE: 3 views of the foot were acquired. COMPARISON: [facility], , XR FOOT RT MIN 3V, 01/09/2023, 11:12. FINDINGS: Bones: Comparison with prior study shows a nonunion fracture at the base of the 5th metatarsal. Fracture line is increased when compared with a prior study in the examination shows no evidence of the periosteal reaction. Bone structures and great toe are unremarkable. Soft tissues: No soft tissue abnormality demonstrated. No radiopaque foreign bodies. No subcutaneous emphysema. 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 Dictated by: Amor Lopez M.D. on 12/10/2023 at 10:59 Approved by: Amor Lopez M.D. on 12/10/2023 at 11:07
[2023-12-10 08:15] LABS: Hematocrit 42.5 % (41-53); Hemoglobin 14.7 g/dL (13.5-17.5); Mean Corpuscular HGB Conc 34.6 % (30-36); Mean Corpuscular Hemoglobin 30.5 PG (26-34); Platelet Count 181 X10^3/uL (150-400); Red Blood Cell Count 4.83 X10^6/uL (4.5-5.9); Red Cell Distribution Width 12.9 % (11.6-14.8); White Blood Cell Count 7.8 X10^3/uL (4.5-11.0)
[2023-12-10 08:26] LABS: Hemoglobin A1C% w Est Avg Glu 8.1 % (4.0-6.0)
[2023-12-10 08:30] LABS: Erythrocyte Sedimentation Rate 5 MM/HR (0-15)
[2023-12-10 09:03] LABS: Alanine Aminotransferase 46 IU/L (<50); Albumin 3.7 g/dL (3.5-5.0); Albumin Globulin Ratio 1.8 (1.0-2.8); Alkaline Phosphatase 56 U/L (38-126); Aspartate Aminotransferase 38 IU/L (17-59); BUN Creatinine Ratio 25.5 (6-22); Bilirubin Total 0.4 mg/dL (0.2-1.3); Blood Urea Nitrogen 25 mg/dL (9-20); C-Reactive Protein Quant < 0.5 mg/dL (<1.0); Calcium 8.3 mg/dL (8.4-10.2); Carbon Dioxide 28 mmol/L (22-32); Chloride 104 mmol/L (98-107); Estimated Glomerular Filt Rate > 60 mL/min (>60); Globulin 2.1 g/dL (1.7-4.1); Glucose 241 mg/dL (70-100); HEMOLYSIS < 15 (0-50); Potassium 4.7 mmol/L (3.4-5.1); Sodium 137 mmol/L (137-145); Total Protein 5.8 g/dL (6.3-8.2)
[2023-12-10 11:09] LABS: Microalbumin Urine Random 3.5 mg/dL (0-1.6)
[2023-12-10 17:24] LABS: Creatinine Urine Random 73.78 mg/dL
== END ==
PROVIDERS: Family Provider Internal Medicine; PCP Internal Medicine; Referring Provider Surgery; Visit Provider Otolaryngology
DX: G44.89 Other headache syndrome (principal); L97.519 Non-pressure chronic ulcer of other part of right foot with unspecified severity; S92.351K Displaced fracture of fifth metatarsal bone, right foot, subsequent encounter for fracture with nonunion; B99.9 Unspecified infectious disease; J32.4 Chronic pansinusitis; E11.621 Type 2 diabetes mellitus with foot ulcer; E11.69 Type 2 diabetes mellitus with other specified complication; E78.5 Hyperlipidemia, unspecified
CPT/HCPCS: 36415; 70486; 73630; 80053; 82043; 82570; 83036; 85027; 85651; 86140

== ENCOUNTER → 2023-12-16 10:44 | Outpatient (CLI) | payer OTHER, SELFPAY | LOC: WC 10:46 | PROVIDERS: Family Provider Internal Medicine; PCP Internal Medicine; Referring Provider Internal Medicine; Visit Provider Surgery | DX: E11.42 Type 2 diabetes mellitus with diabetic polyneuropathy (principal); Z86.31 Personal history of diabetic foot ulcer | CPT/HCPCS: 99212; 99213 ==

== ENCOUNTER → 2023-12-23 09:39 | Outpatient (CLI) | payer OTHER, SELFPAY | LOC: WC 09:40 | PROVIDERS: Family Provider Internal Medicine; PCP Internal Medicine; Referring Provider Internal Medicine; Visit Provider Surgery | DX: Z09 Encounter for follow-up examination after completed treatment for conditions other than malignant neoplasm (principal); Z86.31 Personal history of diabetic foot ulcer | CPT/HCPCS: 99211; 99213 ==

== ENCOUNTER → 2023-12-30 11:20 | Outpatient (CLI) | payer OTHER, SELFPAY | PROVIDERS: Family Provider Internal Medicine; PCP Internal Medicine; Referring Provider Internal Medicine; Visit Provider Surgery | DX: E11.621 Type 2 diabetes mellitus with foot ulcer (principal); E11.42 Type 2 diabetes mellitus with diabetic polyneuropathy; L97.512 Non-pressure chronic ulcer of other part of right foot with fat layer exposed; R60.0 Localized edema; Z79.2 Long term (current) use of antibiotics | CPT/HCPCS: 11042; 87070; 87075; 87077; 87147; 87186; 87205; 99213 ==

== ENCOUNTER → 2024-01-07 08:34 | Outpatient (CLI) | payer OTHER, SELFPAY | PROVIDERS: Family Provider Internal Medicine; PCP Internal Medicine; Referring Provider Internal Medicine; Visit Provider Surgery | DX: E11.621 Type 2 diabetes mellitus with foot ulcer (principal); E11.42 Type 2 diabetes mellitus with diabetic polyneuropathy; L97.512 Non-pressure chronic ulcer of other part of right foot with fat layer exposed; L84 Corns and callosities; F17.210 Nicotine dependence, cigarettes, uncomplicated | CPT/HCPCS: 11042; 99213 ==

== ENCOUNTER → 2024-01-14 08:37 | Outpatient (CLI) | payer OTHER, SELFPAY | LOC: WC 08:37 | PROVIDERS: Family Provider Internal Medicine; PCP Internal Medicine; Referring Provider Internal Medicine; Visit Provider Surgery | DX: E11.621 Type 2 diabetes mellitus with foot ulcer (principal); E11.42 Type 2 diabetes mellitus with diabetic polyneuropathy; L97.512 Non-pressure chronic ulcer of other part of right foot with fat layer exposed; L84 Corns and callosities | CPT/HCPCS: 11042 ==

== ENCOUNTER → 2024-01-21 08:52 | Outpatient (CLI) | payer OTHER, SELFPAY | PROVIDERS: Family Provider Internal Medicine; PCP Internal Medicine; Referring Provider Internal Medicine; Visit Provider Surgery | DX: E11.621 Type 2 diabetes mellitus with foot ulcer (principal); E11.42 Type 2 diabetes mellitus with diabetic polyneuropathy; L97.512 Non-pressure chronic ulcer of other part of right foot with fat layer exposed; L84 Corns and callosities | CPT/HCPCS: 11042 ==

== ENCOUNTER → 2024-01-28 09:18 | Outpatient (CLI) | payer OTHER, SELFPAY | PROVIDERS: Family Provider Internal Medicine; PCP Internal Medicine; Referring Provider Internal Medicine; Visit Provider Surgery | DX: E11.621 Type 2 diabetes mellitus with foot ulcer (principal); E11.42 Type 2 diabetes mellitus with diabetic polyneuropathy; L97.512 Non-pressure chronic ulcer of other part of right foot with fat layer exposed; L84 Corns and callosities | CPT/HCPCS: 11042 ==

== ENCOUNTER → 2024-02-04 08:40 | Outpatient (CLI) | payer OTHER, SELFPAY | PROVIDERS: Family Provider Internal Medicine; PCP Internal Medicine; Referring Provider Internal Medicine; Visit Provider Surgery | DX: E11.621 Type 2 diabetes mellitus with foot ulcer (principal); E11.42 Type 2 diabetes mellitus with diabetic polyneuropathy; L97.512 Non-pressure chronic ulcer of other part of right foot with fat layer exposed; L84 Corns and callosities; L08.89 Other specified local infections of the skin and subcutaneous tissue; Z79.2 Long term (current) use of antibiotics | CPT/HCPCS: 11042; 99213 ==

== ENCOUNTER → 2024-02-08 07:49 | Outpatient (CLI) | payer OTHER, SELFPAY ==
--- NOTE | 2024-02-08 07:49 | DI.MRI.S_ITS ---
PROCEDURE: MR FOOT RT WO/W CON INDICATIONS: Rule out osteomyelitis, diabetic ulcer of right great toe TECHNIQUE: Multiphasic, multisequence MRI of the forefoot was performed, before and after intravenous contrast administration. COMPARISON: [facility], CR, XR FOOT RT MIN 3V, 12/10/2023, 7:32. [facility], MR, MR FOOT RT WO/W CON, 10/09/2022, 18:19. FINDINGS: Image quality: Excellent. Bones and joints: Nonunited fracture of the 5th metatarsal base with associated marked marrow edema. No additional marrow edema with confluent T1 hypointensity to suggest osteomyelitis. Mild degenerative changes of the tarsal metatarsal joint. Soft tissues: There is a small T2 hyperintense lesion in the skin, measuring 3 mm, plantar to the 1st interphalangeal joint (series 5, image 29) likely representing a skin blistering. Small amount of fluid at the master knot of Lan, partially visualized. The flexor, and the extensor tendons are unremarkable. Small skin irregularity with small amount of fluid plantar to the 1st metatarsal head, which may represent a small superficial soft tissue none. No drainable fluid collection. The Lisfranc ligament is intact. IMPRESSION: 1. 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 Underlying osteomyelitis is unlikely given absence of adjacent soft tissue ulceration. 2. Findings suggestive of small skin blister plantar to the 1st interphalangeal joint and a small soft tissue ulceration plantar to the 1st metatarsal head. No osteomyelitis or reactive marrow edema of the 1st toe. Dictated by: Mimi Nguyen M.D. on 02/08/2024 at 14:23 Approved by: Mimi Nguyen M.D. on 02/08/2024 at 14:34
== END ==
PROVIDERS: Family Provider Internal Medicine; PCP Internal Medicine; Referring Provider Surgery; Visit Provider Surgery
DX: E11.621 Type 2 diabetes mellitus with foot ulcer (principal); L97.519 Non-pressure chronic ulcer of other part of right foot with unspecified severity; S92.351K Displaced fracture of fifth metatarsal bone, right foot, subsequent encounter for fracture with nonunion
CPT/HCPCS: 73720; A9579

== ENCOUNTER → 2024-02-11 08:50 | Outpatient (CLI) | payer OTHER, SELFPAY | LOC: WC 08:53 | PROVIDERS: Family Provider Internal Medicine; PCP Internal Medicine; Referring Provider Internal Medicine; Visit Provider Surgery | DX: E11.621 Type 2 diabetes mellitus with foot ulcer (principal); E11.42 Type 2 diabetes mellitus with diabetic polyneuropathy; L97.512 Non-pressure chronic ulcer of other part of right foot with fat layer exposed; L84 Corns and callosities | CPT/HCPCS: 11042 ==

== ENCOUNTER → 2024-02-18 08:39 | Outpatient (CLI) | payer OTHER, SELFPAY | LOC: WC 08:39 | PROVIDERS: Family Provider Internal Medicine; PCP Internal Medicine; Referring Provider Internal Medicine; Visit Provider Surgery | DX: E11.621 Type 2 diabetes mellitus with foot ulcer (principal); E11.42 Type 2 diabetes mellitus with diabetic polyneuropathy; L97.512 Non-pressure chronic ulcer of other part of right foot with fat layer exposed; L84 Corns and callosities | CPT/HCPCS: 11042 ==

== ENCOUNTER → 2024-02-25 09:14 | Outpatient (CLI) | payer OTHER, SELFPAY | LOC: WC 09:14 | PROVIDERS: Family Provider Internal Medicine; PCP Internal Medicine; Referring Provider Internal Medicine; Visit Provider Surgery | DX: E11.621 Type 2 diabetes mellitus with foot ulcer (principal); E11.42 Type 2 diabetes mellitus with diabetic polyneuropathy; L97.512 Non-pressure chronic ulcer of other part of right foot with fat layer exposed; L84 Corns and callosities | CPT/HCPCS: 11042 ==

== ENCOUNTER → 2024-03-10 08:30 | Outpatient (CLI) | payer OTHER, SELFPAY | PROVIDERS: Family Provider Internal Medicine; PCP Internal Medicine; Referring Provider Internal Medicine; Visit Provider Surgery | DX: E11.621 Type 2 diabetes mellitus with foot ulcer (principal); L97.512 Non-pressure chronic ulcer of other part of right foot with fat layer exposed; E11.42 Type 2 diabetes mellitus with diabetic polyneuropathy; L84 Corns and callosities | CPT/HCPCS: 11042 ==

== ENCOUNTER → 2024-03-17 08:40 | Outpatient (CLI) | payer OTHER, SELFPAY | PROVIDERS: Family Provider Internal Medicine; PCP Internal Medicine; Referring Provider Internal Medicine; Visit Provider Surgery | DX: E11.621 Type 2 diabetes mellitus with foot ulcer (principal); E11.42 Type 2 diabetes mellitus with diabetic polyneuropathy; L97.512 Non-pressure chronic ulcer of other part of right foot with fat layer exposed; L84 Corns and callosities; F17.210 Nicotine dependence, cigarettes, uncomplicated | CPT/HCPCS: 11042; 99213 ==

== ENCOUNTER → 2024-03-24 08:54 | Outpatient (CLI) | payer OTHER, SELFPAY | PROVIDERS: Family Provider Internal Medicine; PCP Internal Medicine; Referring Provider Internal Medicine; Visit Provider Surgery | DX: E11.621 Type 2 diabetes mellitus with foot ulcer (principal); E11.42 Type 2 diabetes mellitus with diabetic polyneuropathy; L97.512 Non-pressure chronic ulcer of other part of right foot with fat layer exposed; L84 Corns and callosities | CPT/HCPCS: 11042 ==

== ENCOUNTER → 2024-03-28 09:13 | Outpatient (CLI) | payer OTHER, SELFPAY ==
[2024-03-28 10:34] LABS: Hemoglobin A1C% w Est Avg Glu 7.1 % (4.0-6.0)
[2024-03-28 10:51] LABS: BUN Creatinine Ratio 25.6 (6-22); Blood Urea Nitrogen 20 mg/dL (9-20); Carbon Dioxide 31 mmol/L (22-32); Chloride 104 mmol/L (98-107); Estimated Glomerular Filt Rate > 60 mL/min (>60); Glucose 151 mg/dL (70-100); HEMOLYSIS < 15 (0-50); Potassium 4.7 mmol/L (3.4-5.1); Sodium 138 mmol/L (137-145)
[2024-03-28 11:23] LABS: Testosterone 220 ng/dL (71.8-623)
== END ==
PROVIDERS: Family Provider Internal Medicine; PCP Internal Medicine; Referring Provider Internal Medicine; Visit Provider Internal Medicine
DX: E11.69 Type 2 diabetes mellitus with other specified complication (principal); E78.5 Hyperlipidemia, unspecified; R79.89 Other specified abnormal findings of blood chemistry
CPT/HCPCS: 36415; 80048; 83036; 84403

== ENCOUNTER → 2024-03-30 16:25 | Outpatient (CLI) | payer OTHER, SELFPAY ==
[2024-03-30 17:30] LABS: Follicle Stimulating Hormone 3.16 mIU/mL; Luteinizing Hormone 3.18 mIU/mL
[2024-03-30 17:44] LABS: Prolactin 12.7 ng/mL (3.7-17.9)
[2024-03-30 18:00] LABS: TSH w/ Reflex to FT4 0.66 uIU/mL (0.47-4.68); Testosterone 256 ng/dL (71.8-623)
== END ==
PROVIDERS: Family Provider Internal Medicine; PCP Internal Medicine; Referring Provider Internal Medicine; Visit Provider Internal Medicine
DX: R79.89 Other specified abnormal findings of blood chemistry (principal); D35.2 Benign neoplasm of pituitary gland
CPT/HCPCS: 36415; 83001; 83002; 84146; 84403; 84443

== ENCOUNTER → 2024-04-07 09:05 | Outpatient (CLI) | payer OTHER, SELFPAY | PROVIDERS: Family Provider Internal Medicine; PCP Internal Medicine; Referring Provider Internal Medicine; Visit Provider Surgery | DX: E11.628 Type 2 diabetes mellitus with other skin complications (principal); E11.42 Type 2 diabetes mellitus with diabetic polyneuropathy; L84 Corns and callosities | CPT/HCPCS: 99212; 99213 ==

== ENCOUNTER → 2024-04-21 11:33 | Outpatient (CLI) | payer OTHER, SELFPAY | PROVIDERS: Family Provider Internal Medicine; PCP Internal Medicine; Referring Provider Internal Medicine; Visit Provider Surgery | DX: Z09 Encounter for follow-up examination after completed treatment for conditions other than malignant neoplasm (principal); Z86.31 Personal history of diabetic foot ulcer | CPT/HCPCS: 99211; 99213 ==

== ENCOUNTER 2024-05-12 11:55 | Day surgery (SDC) | payer OTHER, SELFPAY ==
[2024-05-02 14:32] VITALS: BMI 34.0
[2024-05-12] VITALS (8 sets, daily range): BP systolic 125–161; BP diastolic 77–90; PULSE 78–90; RESP 13–18; TEMP 36.1–36.4; O2SAT 92–98; BMI 33.7
--- NOTE | 2024-05-12 | PATH_ITS ---
[facility] Accession Number: [id number] No. of containers..01 Tissue . 01 Material submitted: . uvula - PAPILLOMA OF UVULA . 01 Diagnosis: PAPILLOMA OF UVULA: Benign squamous papilloma. No dysplasia identified. [facility] 05/16/2024 [facility] . 01 Electronically signed: . Curtis Preston MD, Pathologist NPI- [id number] . 01 Gross description: . Received in formalin with two patient identifiers and papilloma of uvula, is a agarwal, roughened, polypoid fragment of possible mucous membrane measuring 0.7 x 0.3 x 0.9 cm. Inked blue, bisected, and submitted entirely in A1. ([id number]) /MRV 05/16/2024 [facility] . 01 Pathologist provided ICD-10: D10.39 . 01 CPT . 068042 Specimen Comment: A courtesy copy of this report has been sent to [phone] Performed at: [address] [id number] MD Curtis Preston MD Phone: [phone]
[2024-05-12] MEDS: OXYMETAZOLINE NASAL SPRAY 30 ML 2 SPRAYS NASAL (12:29)
[2024-05-12] MEDS: LACTATED RINGERS 1,000 ML 42 ML IV (12:30)
--- NOTE | 2024-05-12 13:21 | P.HP_ITS ---
History of Present Illness History of Present Illness Date Patient Seen: 05/12/24 Chief complaint: ENT Narrative: 53-year-old male last seen in clinic 03/21/2024 presents for scheduled bilateral endoscopic sinus surgery as well as papilloma excision from the uvula. No interval health changes, he continues his fullface CPAP and budesonide irrigations. PCP clearance 01/07/2024 reviewed, uses meloxicam, therefore we will not use ibuprofen postoperatively. He elects to proceed. [facility] Medical History Erectile dysfunction Low testosterone Obstructive sleep apnea Type 2 diabetes mellitus with moderate nonproliferative diabetic retinopathy with macular edema, right eye Type 2 diabetes mellitus with moderate nonproliferative diabetic retinopathy without macular edema, left eye Chronic sinusitis Essential hypertension Right rotator cuff tear Osteomyelitis of toe of right foot Degenerative tear of glenoid labrum of right shoulder Diabetic ulcer of toe associated with type 2 diabetes mellitus Persistent proteinuria associated with type 2 diabetes mellitus History of colonic polyps Tobacco use disorder Primary osteoarthritis involving multiple joints Chronic low back pain Generalized anxiety disorder Mixed hyperlipidemia DM type 2 with diabetic dyslipidemia Social History details: [place], 3 daughters, 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 household members: significant other Smoking Status: Current every day smoker alcohol intake: current Meds Home Medications and Allergies Home Medications Medication Instructions Recorded Confirmed Type cholecalciferol (vitamin D3) 125 125 mcg PO DAILY 10/25/21 04/18/24 History mcg (5,000 unit) capsule multivitamin 1 tab PO DAILY 10/25/21 04/18/24 History Glucometer #1 ea 02/12/22 04/18/24 Rx pen needle, diabetic, safety 31 #100 ea 08/29/22 04/18/24 Rx gauge x 09/16 triamcinolone acetonide 0.5 % 1 applic topical TID #45 grams 10/09/22 04/18/24 Rx topical cream sildenafil 50 mg tablet 50 mg PO DAILY PRN sexual activity 05/18/23 05/12/24 Rx #30 tabs blood sugar diagnostic (OneTouch #100 strips 05/25/23 04/18/24 Rx Verio test strips) lisinopril 5 mg tablet 5 mg PO DAILY #90 tabs 06/08/23 04/18/24 Rx glucagon 3 mg/actuation nasal spray 3 mg intranasal ONCE #1 ea 09/14/23 04/18/24 Rx levofloxacin 500 mg tablet 500 mg PO DAILY #10 tabs 10/08/23 04/18/24 Rx cefuroxime axetil 500 mg tablet 500 mg PO BID #20 tabs 10/16/23 05/12/24 Rx mirtazapine 15 mg tablet 15 mg PO DAILY #90 tabs 12/28/23 04/18/24 Rx methocarbamol 500 mg tablet See Rx Instructions .Route 01/07/24 04/18/24 Rx .COMPLEX #60 tabs meloxicam 15 mg tablet 15 mg PO DAILY #90 tabs 01/29/24 04/18/24 Rx duloxetine 60 mg capsule,delayed 60 mg PO DAILY #90 caps 02/23/24 05/12/24 Rx release rosuvastatin 10 mg tablet 10 mg PO DAILY #90 tabs 02/23/24 04/18/24 Rx insulin glargine 100 unit/mL (3 40 unit (0.4 mL) SUBCUT QPM #15 mL 03/28/24 05/12/24 Rx mL) subcutaneous pen (Basaglar KwikPen U-100 Insulin) oxycodone 5 mg tablet 5 mg PO Q6H PRN pain #14 tabs 04/11/24 05/12/24 Rx tadalafil 20 mg tablet 20 mg PO DAILY PRN sexual activity 04/18/24 05/12/24 Rx #30 tabs empagliflozin 25 mg tablet 25 mg PO DAILY 05/12/24 05/12/24 History (Jardiance) lisinopril 5 mg tablet 5 mg PO DAILY 05/12/24 05/12/24 History Allergies Allergy/AdvReac Type Severity Reaction Status Date / Time bee venom protein (honey bee) Allergy Severe SWELLING Verified 05/12/24 12:13 Penicillins Allergy Mild Rash Verified 05/12/24 12:13 metformin AdvReac Intermediate Muscle Verified 05/12/24 12:13 Cramps Review of Systems Review of Systems Narrative: Negative except as listed in the HPI Exam Vital Signs (past 8 hours): - 05/12/24 12:31 Temperature 97.5 F L Pulse Rate 78 Respiratory Rate 18 Blood Pressure 125/77 Pulse Oximetry 98 Oxygen Delivery Method Room Air Oxygen Delivery Method Room Air Narrative Exam Narrative: Well-developed well-nourished, heart regular rate and rhythm without murmur, lungs clear to auscultation bilaterally Assessment & Plan Assessment & Plan narrative: Assessment: Chronic rhinosinusitis with nasal polyposis, facial pain, nasal airway obstruction, papilloma of uvula, KEENAN Plan: Following discussion of the material risks benefits complications and alternatives, the patient elected to proceed. Time-Based Coding :: [TOTAL MINUTES] spent with patient and on the chart (including review of chart, obtaining history, exam, reviewing outside data, placing orders, documenting exam and treatment plan, and counseling patient) on [DATE].
--- NOTE | 2024-05-12 13:21 | PM.PREOP ---
Pre-operative Note Interval Note History & Physical reviewed/Exam performed by Physician: Yes Changes to H&P: No
--- NOTE | 2024-05-12 13:23 | PM.OP.1 ---
Operative Date/Time/Diagnoses Date of procedure: 05/12/24 Time of procedure: 16:07 Pre-op diagnosis: Chronic rhinosinusitis with nasal polyposis, facial pain, KEENAN, papilloma of uvula Post-op diagnosis: same Procedure & Clinicians Procedure: 1. Bilateral endoscopic maxillary antrostomy 2. Bilateral endoscopic total ethmoidectomy 3. Bilateral endoscopic sphenoidotomy 4. Excision papilloma of uvula Same procedure as scheduled: Yes Indications: 53 Year old with the above diagnoses incompletely managed with medical therapy presents for the above procedure. Following discussion of the material risks benefits complications and alternatives, the patient elected to proceed. Surgeon: Helio Baldwin Anesthesia Type: General and Local Operative Notes Findings: Significant right septal deviation, narrow or airway on that side. Polyps within the ethmoids bilaterally, some within the middle meatus in addition. Large sphenoidotomies performed. Partial left middle turbinate resection. No purulence. Estimated Blood Loss (mL): 50 Procedure in detail: Following identification and confirmation of consent the patient was brought to the operating room suite and placed in the supine position. General endotracheal anesthesia was administered. Table was turned right side out and a mouth gag was placed to visualize the uvula. The papilloma was resected with scissors and silver nitrate was utilized at the wound base. The gag was removed and the table was turned back. Under endoscopic guidance I infiltrated the posterior and anterior superior insertion of the left middle turbinate. 1:1000 topical epinephrine on small pledgets were placed within the middle meatus for 10 minutes prior. The middle turbinate was slightly medialized and the backbiting forceps performed uncinectomy along with the microdebrider. Polyps and some inflamed mucosa were resected, along with a portion of the middle turbinate for improved access postoperatively. Large Maxillary antrostomy was created by extending the natural os posteriorly and inferiorly. The ethmoid bulla was resected with the microdebrider. I penetrated the basal lamella inferiorly and medially to enter the posterior ethmoids and trimmed the inferior half of the superior turbinate. The natural os of the sphenoid sinus was identified and was enlarged bluntly and sharply inferiorly and laterally. Posterior to anterior ethmoid dissection was performed with the J curette and forceps although the frontal recess was not completely approached. Hemostasis was excellent. On the right side I performed similar injections as well as topical treatment with epinephrine, although the airway was narrower. Uncinectomy was performed with backbiting forceps. I performed a large maxillary antrostomy, ethmoid bulla resection to complete the anterior ethmoidectomy. The basal lamella was penetrated to enter the posterior ethmoids and identified the natural os of the sphenoid, sphenoidotomy was performed. Then posterior to anterior ethmoid dissection along the skull base was performed until the frontal recess was approached but not entered. Hemostasis was excellent but I use some Perclot powder to the dissected areas bilaterally as a precaution, suctioning excess and irrigating. Suction electrocautery on a setting of 10 was used on the remnant portions of the left middle turbinate that had been partially resected. The procedure was completed, sponge counts were correct and he was extubated in the operating room and taken to recovery room in stable condition without no complication. Complications: none Post-operative Condition: stable Disposition: same day surgery Plan for aftercare: Nasal saline every hour while awake, begin irrigations t.i.d. tomorrow which includes twice daily with budesonide, mid day with saline alone. Tylenol alternating with Advil for pain control, oxycodone for breakthrough pain. Elevate head of bed, no nose blowing, no straining for 2 weeks. Afrin for bleeding only. Follow-up in 1 week as scheduled, continue CPAP whenever sleeping.
--- NOTE | 2024-05-12 13:50 | SUR.OPER ---
Supine on padded OR bed, head on pillow, arms secured on padded arm boards at <90 degrees abduction, legs uncrossed, safety belt at thigh, tape over blanket over lower legs.
[2024-05-12] MEDS: EPINEPHrine 1 MG/ML 6 MG TOP (14:11)
[2024-05-12] MEDS: LIDOCAINE 1% W/EPI 20ML 20 ML INJ (14:14)
[2024-05-12] MEDS: SILVER NITRATE STICK 1 EACH TOP (14:15)
[2024-05-12] MEDS: OXYCODONE IR 5 MG TABLET PO (17:15)
== END 2024-05-12 17:18 | disposition home or self-care (01) ==
PROVIDERS: Family Provider Internal Medicine; PCP Internal Medicine; Referring Provider Otolaryngology; Visit Provider Otolaryngology
PROC: (CPT 31231; principal; 2024-05-12 14:00)
DX: D10.39 Benign neoplasm of other parts of mouth (principal); J32.4 Chronic pansinusitis; J33.9 Nasal polyp, unspecified; G47.33 Obstructive sleep apnea (adult) (pediatric); R51.9 Headache, unspecified
CPT/HCPCS: 31257; 31256; 42104; J0171; J1100; J2405; J2704; J3010

== ENCOUNTER → 2024-07-21 15:12 | Outpatient (CLI) | payer OTHER, SELFPAY ==
[2024-07-21 16:11] LABS: Hemoglobin A1C% w Est Avg Glu 7.2 % (4.0-6.0)
[2024-07-21 16:36] LABS: Aspartate Aminotransferase 28 IU/L (17-59); BUN Creatinine Ratio 28.8 (6-22); Blood Urea Nitrogen 30 mg/dL (9-20); Calcium 9.4 mg/dL (8.4-10.2); Carbon Dioxide 29 mmol/L (22-32); Chloride 100 mmol/L (98-107); Cholesterol 177 mg/dL (140-199); Estimated Glomerular Filt Rate > 60 mL/min (>60); Glucose 204 mg/dL (70-100); HDL Cholesterol 52 mg/dL (40-60); HEMOLYSIS < 15 (0-50); LDL Cholesterol Calculated 71 mg/dL (<100); Potassium 4.4 mmol/L (3.4-5.1); Sodium 138 mmol/L (137-145); Triglycerides 270 mg/dL (35-150)
[2024-07-21 17:08] LABS: Prostate Specific Antigen Scrn 0.112 ng/mL (0.1-4.0)
== END ==
PROVIDERS: Family Provider Internal Medicine; PCP Internal Medicine; Referring Provider Internal Medicine; Visit Provider Internal Medicine
DX: Z12.5 Encounter for screening for malignant neoplasm of prostate (principal); E11.3311 Type 2 diabetes mellitus with moderate nonproliferative diabetic retinopathy with macular edema, right eye; E78.2 Mixed hyperlipidemia
CPT/HCPCS: 36415; 80048; 80061; 83036; 84450; G0103

== ENCOUNTER → 2024-11-02 08:12 | Outpatient (CLI) | payer OTHER, SELFPAY | LOC: WC 08:14 | PROVIDERS: Family Provider Internal Medicine; PCP Internal Medicine; Referring Provider Internal Medicine; Visit Provider Surgery | DX: E11.621 Type 2 diabetes mellitus with foot ulcer (principal); E11.42 Type 2 diabetes mellitus with diabetic polyneuropathy; L97.522 Non-pressure chronic ulcer of other part of left foot with fat layer exposed; L84 Corns and callosities; R80.9 Proteinuria, unspecified; F41.1 Generalized anxiety disorder; Z86.0100 Personal history of colon polyps, unspecified; F17.210 Nicotine dependence, cigarettes, uncomplicated; M15.0 Primary generalized (osteo)arthritis | CPT/HCPCS: 11042; 87070; 87077; 87147; 87186; 87205; 99214 ==

== ENCOUNTER → 2024-11-09 09:09 | Outpatient (CLI) | payer OTHER, SELFPAY | PROVIDERS: Family Provider Internal Medicine; PCP Internal Medicine; Referring Provider Internal Medicine; Visit Provider Surgery | DX: E11.621 Type 2 diabetes mellitus with foot ulcer (principal); E11.42 Type 2 diabetes mellitus with diabetic polyneuropathy; L97.522 Non-pressure chronic ulcer of other part of left foot with fat layer exposed; L84 Corns and callosities | CPT/HCPCS: 11042 ==

== ENCOUNTER → 2024-11-09 09:51 | Outpatient (CLI) | payer OTHER, SELFPAY ==
--- NOTE | 2024-11-09 09:53 | DI.RAD.S_ITS ---
PROCEDURE: XR FOOT LT MIN 3V INDICATIONS: eval for osteo, non healing wound left hallux TECHNIQUE: 3 views of the foot were acquired. COMPARISON: [facility], CR, XR FOOT RT MIN 3V, 12/10/2023, 7:32. FINDINGS: Bones os trigonum noted. No evidence of osteomyelitis. Joints: The joint spaces are normal in width and alignment without arthritic change. Soft tissues: Moderate calcification Achilles and plantar tendon insertion on the calcaneus. There is also plantar soft tissue swelling over the calcaneus IMPRESSION: Moderate plantar soft tissue swelling over the calcaneus which may represent edema or cellulitis Dictated by: Brayan Jc M.D. on 11/10/2024 at 11:39 Approved by: Brayan Jc M.D. on 11/10/2024 at 11:40
== END ==
PROVIDERS: Family Provider Internal Medicine; PCP Internal Medicine; Referring Provider Surgery; Visit Provider Surgery
DX: E11.621 Type 2 diabetes mellitus with foot ulcer (principal); M79.89 Other specified soft tissue disorders
CPT/HCPCS: 73630

== ENCOUNTER → 2024-11-16 09:39 | Outpatient (CLI) | payer OTHER, SELFPAY | PROVIDERS: Family Provider Internal Medicine; PCP Internal Medicine; Referring Provider Internal Medicine; Visit Provider Nurse Practitioner Family | DX: E11.621 Type 2 diabetes mellitus with foot ulcer (principal); E11.42 Type 2 diabetes mellitus with diabetic polyneuropathy; L97.522 Non-pressure chronic ulcer of other part of left foot with fat layer exposed; L84 Corns and callosities | CPT/HCPCS: 11042; 99213 ==

== ENCOUNTER → 2024-11-16 09:53 | Outpatient (CLI) | payer OTHER, SELFPAY ==
[2024-11-16 11:06] LABS: Hemoglobin A1C% w Est Avg Glu 7.2 % (4.0-6.0)
[2024-11-16 11:16] LABS: Blood Urea Nitrogen 25 mg/dL (9-20); Calcium 8.9 mg/dL (8.4-10.2); Carbon Dioxide 30 mmol/L (22-32); Chloride 100 mmol/L (98-107); Estimated Glomerular Filt Rate > 60 mL/min (>60); Glucose 185 mg/dL (70-99); HEMOLYSIS < 15 (0-50); Potassium 4.7 mmol/L (3.4-5.1); Sodium 135 mmol/L (137-145)
[2024-11-16 12:29] LABS: Microalbumi Creatinin Ratio Ur 98.0 ug/mg CR (<30)
== END ==
PROVIDERS: Family Provider Internal Medicine; PCP Internal Medicine; Referring Provider Internal Medicine; Visit Provider Internal Medicine
DX: E11.3311 Type 2 diabetes mellitus with moderate nonproliferative diabetic retinopathy with macular edema, right eye (principal); E11.29 Type 2 diabetes mellitus with other diabetic kidney complication; R80.9 Proteinuria, unspecified; E11.621 Type 2 diabetes mellitus with foot ulcer; E11.42 Type 2 diabetes mellitus with diabetic polyneuropathy; L97.522 Non-pressure chronic ulcer of other part of left foot with fat layer exposed; L84 Corns and callosities
CPT/HCPCS: 11042; 36415; 80048; 82043; 82570; 83036

== ENCOUNTER → 2024-11-23 10:26 | Outpatient (CLI) | payer OTHER, SELFPAY | LOC: WC 10:31 | PROVIDERS: PCP Internal Medicine; Referring Provider Internal Medicine; Visit Provider Surgery | DX: E11.42 Type 2 diabetes mellitus with diabetic polyneuropathy (principal); L84 Corns and callosities; I73.9 Peripheral vascular disease, unspecified; F17.210 Nicotine dependence, cigarettes, uncomplicated | CPT/HCPCS: 99213 ==

== ENCOUNTER → 2024-11-25 07:36 | Outpatient (CLI) | payer OTHER, SELFPAY ==
--- NOTE | 2024-11-25 07:37 | DI.US.S_ITS ---
PROCEDURE: US ARTERIAL DUPLEX LE LT INDICATIONS: NON-HEALING WOUND LEFT FOOT TECHNIQUE: Color and pulse Doppler interrogation was performed of the left lower extremity arterial system, with image documentation. COMPARISON: [facility], , US ARTERIAL DUPLEX LE RT, 10/09/2022, 13:06. FINDINGS: Left lower extremity: Common femoral artery: 155 cm/sec Deep femoral artery: 129 cm/sec Proximal superficial femoral artery: 81 cm/sec Mid superficial femoral artery: 126 cm/sec Distal superficial femoral artery: 117 cm/sec Popliteal artery: 90 cm/sec Posterior tibial artery: 64 cm/sec Anterior tibial artery/dorsalis pedis: 41 cm/sec Martinez-scale imaging description: Dense heavily calcified diffuse atherosclerotic plaque. Triphasic waveforms IMPRESSION: Calcified atherosclerotic plaque. Possible moderate stenosis mid SFA Approved by: Chris Claudio M.D. on 11/25/2024 at 17:44
== END ==
PROVIDERS: PCP Internal Medicine; Referring Provider Internal Medicine; Visit Provider Surgery
DX: E11.621 Type 2 diabetes mellitus with foot ulcer (principal); L97.529 Non-pressure chronic ulcer of other part of left foot with unspecified severity; I70.202 Unspecified atherosclerosis of native arteries of extremities, left leg
CPT/HCPCS: 93926

== ENCOUNTER → 2024-11-30 09:18 | Outpatient (CLI) | payer OTHER, SELFPAY | LOC: WC 09:20 | PROVIDERS: PCP Internal Medicine; Referring Provider Internal Medicine; Visit Provider Surgery | DX: E11.621 Type 2 diabetes mellitus with foot ulcer (principal); L97.522 Non-pressure chronic ulcer of other part of left foot with fat layer exposed; L84 Corns and callosities; I73.9 Peripheral vascular disease, unspecified; F17.210 Nicotine dependence, cigarettes, uncomplicated; E11.40 Type 2 diabetes mellitus with diabetic neuropathy, unspecified | CPT/HCPCS: 11042 ==

== ENCOUNTER → 2024-12-28 09:00 | Outpatient (CLI) | payer OTHER, SELFPAY | LOC: WC 09:00 | PROVIDERS: PCP Internal Medicine; Referring Provider Internal Medicine; Visit Provider Surgery | DX: E11.621 Type 2 diabetes mellitus with foot ulcer (principal); L97.522 Non-pressure chronic ulcer of other part of left foot with fat layer exposed; L84 Corns and callosities; R23.3 Spontaneous ecchymoses; E11.51 Type 2 diabetes mellitus with diabetic peripheral angiopathy without gangrene; E11.40 Type 2 diabetes mellitus with diabetic neuropathy, unspecified; Z88.0 Allergy status to penicillin; Z88.8 Allergy status to other drugs, medicaments and biological substances | CPT/HCPCS: 11042 ==

== ENCOUNTER → 2025-01-05 08:43 | Outpatient (CLI) | payer OTHER, SELFPAY | LOC: WC 08:43 | PROVIDERS: PCP Internal Medicine; Referring Provider Internal Medicine; Visit Provider Physician Assistant | DX: E11.621 Type 2 diabetes mellitus with foot ulcer (principal); L97.522 Non-pressure chronic ulcer of other part of left foot with fat layer exposed; L84 Corns and callosities; R23.3 Spontaneous ecchymoses; E11.51 Type 2 diabetes mellitus with diabetic peripheral angiopathy without gangrene; Z88.0 Allergy status to penicillin; Z88.8 Allergy status to other drugs, medicaments and biological substances; Z72.0 Tobacco use | CPT/HCPCS: 11042; 87070; 87077; 87147; 87186; 87205 ==

== ENCOUNTER → 2025-01-12 11:21 | Outpatient (CLI) | payer OTHER, SELFPAY | LOC: WC 11:21 | PROVIDERS: PCP Internal Medicine; Referring Provider Internal Medicine; Visit Provider Surgery | DX: E11.621 Type 2 diabetes mellitus with foot ulcer (principal); L97.522 Non-pressure chronic ulcer of other part of left foot with fat layer exposed; L84 Corns and callosities; R23.3 Spontaneous ecchymoses; E11.40 Type 2 diabetes mellitus with diabetic neuropathy, unspecified; E11.51 Type 2 diabetes mellitus with diabetic peripheral angiopathy without gangrene; Z72.0 Tobacco use; Z88.0 Allergy status to penicillin; Z88.8 Allergy status to other drugs, medicaments and biological substances | CPT/HCPCS: 11042 ==

== ENCOUNTER → 2025-01-19 10:26 | Outpatient (CLI) | payer OTHER, SELFPAY | LOC: WC 10:26 | PROVIDERS: PCP Internal Medicine; Referring Provider Internal Medicine; Visit Provider Surgery | DX: Z86.31 Personal history of diabetic foot ulcer (principal); L84 Corns and callosities; E11.42 Type 2 diabetes mellitus with diabetic polyneuropathy | CPT/HCPCS: 99212; 99213 ==

== ENCOUNTER → 2025-01-26 07:55 | Outpatient (CLI) | payer OTHER, SELFPAY ==
[2025-01-26 09:14] LABS: HEMOLYSIS < 15 (0-50); Iron 83 ug/dL (49-181)
[2025-01-26 09:25] LABS: Percent Iron Saturation 27 % (20-50); Total Iron Binding Capacity 308 ug/dL (261-462); Transferrin 269 mg/dL (206-381)
[2025-01-26 09:45] LABS: Ferritin 33 ng/mL (18-464)
== END ==
PROVIDERS: PCP Internal Medicine; Referring Provider Physician Assistant; Visit Provider Physician Assistant
DX: G25.81 Restless legs syndrome (principal); G47.19 Other hypersomnia; G47.33 Obstructive sleep apnea (adult) (pediatric); G47.9 Sleep disorder, unspecified; Z71.89 Other specified counseling
CPT/HCPCS: 36415; 82728; 83540; 83550

== ENCOUNTER → 2025-01-26 08:36 | Outpatient (CLI) | payer OTHER, SELFPAY | PROVIDERS: PCP Internal Medicine; Referring Provider Internal Medicine; Visit Provider Surgery | DX: Z09 Encounter for follow-up examination after completed treatment for conditions other than malignant neoplasm (principal); Z86.31 Personal history of diabetic foot ulcer | CPT/HCPCS: 99212; 99213 ==

== ENCOUNTER 2025-02-11 12:16 | Emergency (ER) | payer OTHER, SELFPAY ==
[2025-02-11] VITALS (9 sets, daily range): BP systolic 111–129; BP diastolic 52–64; PULSE 80–95; RESP 16–20; TEMP 36.4; O2SAT 91–97; BMI 31.8
--- NOTE | 2025-02-11 12:30 | DI.RAD.S_ITS ---
PROCEDURE: XR CHEST 1V INDICATIONS: suspected sepsis TECHNIQUE: One view of the chest was acquired. COMPARISON: [facility], CR, XR CHEST 2V, 10/27/2023, 11:30. FINDINGS: Surgical changes and devices: Right clavicular ORIF. Lungs and pleura: Lungs are clear. No pleural effusions or pneumothorax. Mediastinum: Mediastinal contours appear normal. Heart size is normal. Bones and chest wall: No suspicious bony lesions. Overlying soft tissues appear unremarkable. IMPRESSION: No acute pulmonary process. Dictated by: Rachna Bellamy M.D. on 02/11/2025 at 13:22 Approved by: Rachna Bellamy M.D. on 02/11/2025 at 13:22
[2025-02-11 12:42] LABS: Add Manual Diff / Slide Review NO; Hematocrit 45.6 % (41-53); Hemoglobin 15.9 g/dL (13.5-17.5); Lymphocytes Absolute Auto 1600 /uL (1100-4500); Mean Corpuscular HGB Conc 35.0 % (30-36); Mean Corpuscular Hemoglobin 30.7 PG (26-34); Mean Corpuscular Volume 87.7 fL (80-100); Platelet Count 209 X10^3/uL (150-400)
--- NOTE | 2025-02-11 12:43 | EKG_ITS ---
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
[2025-02-11] MEDS: SODIUM CHLORIDE 0.9% 1,000 ML 1000 ML IV (12:45)
--- NOTE | 2025-02-11 12:46 | ED_ITS ---
HPI - Wound/Laceration General Chief Complaint: Wound/Laceration Stated Complaint: Sent from Dr. Alvarez- told he needs antibiotics Time Seen by Provider: 02/11/25 12:36 Source: patient Mode of arrival: Ambulatory Limitations: no limitations History of Present Illness HPI narrative: Patient is a 54-year-old male with history of PAT, diabetes, hypertension, hyperlipidemia, prior diabetic ulcer, presenting with foot wound. Patient states that he had a prior chronic diabetic ulcer that had been healing well until he recently had recurrent trauma in the pool approximately 1 week prior to presentation. Patient states that he had been in the [facility], he returned on a flight 2 days prior to presentation. States on the morning of presentation he had developed worsening pain over the dorsum of his left foot. He denies any spreading redness or swelling, no fevers or chills. He otherwise denies any additional symptoms such as chest pain, shortness of breath, cough, nausea or vomiting. Related Data Home Medications ?Medication ?Instructions ?Recorded ?Confirmed cholecalciferol (vitamin D3) 125 125 mcg PO DAILY 10/0312/19/24 mcg (5,000 unit) capsule multivitamin 1 tab PO DAILY 10/25/2112/02 aspirin 81 mg tablet,delayed 81 mg PO DAILY 12/19/24 0 12/19/24 release (Enteric Coated Aspirin) Previous Rx's ?Medication ?Instructions ?Recorded pen needle, diabetic, safety 31 #100 ea 08/29/22 gauge x 16 triamcinolone acetonide 0.5 % 1 applic topical TID #45 grams 10/09/22 topical cream sildenafil 50 mg tablet 50 mg PO DAILY PRN sexual ac tivity 05/18/23 #30 tabs glucagon 3 mg/actuation nasal spray 3 mg intranasal ON CE #1 ea 09/14/23 oxycodone 5 mg tablet 5 mg PO Q6H PRN pain #14 tab s 04/11/24 tadalafil 20 mg tablet 20 mg PO DAILY PRN sexual ac tivity 04/18/24 #30 tabs lisinopril 5 mg tablet 5 mg PO DAILY #90 tabs 06/13 prednisone 10 mg tablet See Rx Instructions .Route 0 08/24/24 .COMPLEX #20 tabs empagliflozin 25 mg tablet 25 mg PO DAILY #90 tabs 11/25 (Jardiance) Glucometer #1 ea 11/21/24 blood sugar diagnostic (OneTouch #100 strips 11/21/24 Verio test strips) insulin glargine 100 unit/mL (3 40 unit (0.4 mL) SUBCU T QPM #15 mL 12/14/24 mL) subcutaneous pen (Basaglar KwikPen U-100 Insulin) tirzepatide 7.5 mg/0.5 mL 7.5 mg (0.5 mL) SUBCUT QWEEK #2 mL 12/19/24 subcutaneous pen injector (Shannonro) mirtazapine 15 mg tablet 15 mg PO DAILY #90 tabs 12/02 01/26 methocarbamol 500 mg tablet See Rx Instructions .Route 12/28/24 .COMPLEX #60 tabs duloxetine 60 mg capsule,delayed 60 mg PO DAILY #90 ca ps 01/26/25 release meloxicam 15 mg tablet 15 mg PO DAILY #90 tabs 01/03 09/25 rosuvastatin 10 mg tablet 10 mg PO DAILY #90 tabs 01/03 09/25 cefuroxime axetil 500 mg tablet 500 mg PO BID #20 tabs 02/11/25 Allergies Allergy/AdvReac Type Severity Reaction Status Date / Time bee venom protein (honey bee) Allergy Severe SWELLING Verified 12/19/24 08:01 Penicillins Allergy Mild Rash Verified 12/19/24 08:01 metformin AdvReac Intermediate Muscle Verified 12/19/24 08:01 Cramps Patient History Medical History Peripheral arterial disease Erectile dysfunction Obstructive sleep apnea Type 2 diabetes mellitus with moderate nonproliferative diabetic retinopathy with macular edema, right eye Type 2 diabetes mellitus with moderate nonproliferative diabetic retinopathy without macular edema, left eye Chronic sinusitis Essential hypertension Right rotator cuff tear Degenerative tear of glenoid labrum of right shoulder Persistent proteinuria associated with type 2 diabetes mellitus History of colonic polyps Tobacco use disorder Primary osteoarthritis involving multiple joints Chronic low back pain Generalized anxiety disorder Mixed hyperlipidemia DM type 2 with diabetic dyslipidemia Social History marital status: details: Roel, 3 daughters, 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 number of children: 3 household members: spouse and children lives independently: No caregiver/support person: No housing: house pets and animals: Yes education level: college occupational status: employed current occupational exposures/hazards: Yes renetta/hinduism: Taoist special renetta needs: No travel history: over 6 months ago leisure activities: music and volunteer work seatbelt use: always helmet use: Yes water heater temp set < 120 deg: Yes working smoke detector in home: Yes fire extinguisher in home: Yes carbon monox detector in home: Yes firearms in home: Yes firearms unloaded and locked: Yes do you feel safe at home: Yes Tobacco: How many years used: 30 quit status: considering quitting second hand exposure: No alcohol intake: current substance use type: does not use during the past year weight has: increased > 10 lbs well-balanced diet: daily or most days daily servings fruits/ve-4 caffeine: Yes eating out: 1-3 times/week Type(s) of exercise: occasional exercise frequency: 3-4 times per week duration: 30-45 minutes/day alcohol intake frequency: a few times a month Exam Initial Vital Signs Initial Vital Signs: Vital Signs Temperature 97.5 F L 02/11/25 12:24 Pulse Rate 93 H 02/11/25 12:24 Respiratory Rate 16 02/11/25 12:24 Blood Pressure 129/60 02/11/25 12:24 Pulse Oximetry 97 02/11/25 12:24 Oxygen Delivery Method Room Air 02/11/25 12:24 Course Orders Ordered: ED Orders 02/11/25 12:29 Blood Culture Stat Complete Blood Count AUTO DIFF Stat Comprehensive Metabolic Panel Stat Lactate (Lactic Acid) Stat Lipase Stat PTT Partial Thromboplastin Og Stat Procalcitonin Stat Prothrombin Time INR Stat 02/11/25 12:30 XR chest 1V Stat EKG-12 Lead Stat RT Consult Eval and Treat NOW 02/11/25 12:31 Wound Culture and Gram Stain Stat 02/11/25 12:49 XR foot LT 2V Stat 02/11/25 12:50 CBC Auto Diff [Complete Blood Count AUTO DIFF] Stat CMP [Comprehensive Metabolic Panel] Stat CRP [C-Reactive Protein Quant] Stat ESR [Erythrocyte Sedimentation Rate] Stat Ondansetron HCl (Ondansetron 4 Mg/2 Ml Inj) 4 mg IV NOW PRN PRN Reason: Nausea And Vomiting Ondansetron HCl (Ondansetron 4 Mg Odt) 4 mg PO NOW PRN PRN Reason: Nausea And Vomiting Discontinued Medications Sodium Chloride (Normal Saline 0.9%) 1,000 mls @ 1,000 mls/hr IV BOLUS ONE Stop: 02/11/25 13:29 Last Admin: 02/11/25 12:45 Dose: 1,000 mls/hr Documented By: ELOISE Vital Signs Vital signs: Vital Signs - 8 hr 02/11/25 12:24 Temperature 97.5 F L Pulse Rate 93 H Respiratory Rate 16 Blood Pressure 129/60 Pulse Oximetry 97 Oxygen Delivery Method Room Air MDM - Wound/Laceration Differential Diagnosis Differential diagnosis: Likely abrasion, avulsion of skin and other (Diabetic foot ulcer, osteomyelitis, cellulitis, chronic wound) Medical Records Attestation: I reviewed the patient's medical records. Lab Data Attestation: I reviewed the patient's lab results. Lab results narrative: Without leukocytosis, CRP or lactate elevation to suggest systemic inflammatory response or concern for severe deep tissue infection 02/11/25 12:29 02/11/25 12:29 Labs: Lab Results 02/11/25 Range/Units 12:29 WBC 7.6 (4.5-11.0) X10^3/uL RBC 5.20 (4.5-5.9) X10^6/uL Hgb 15.9 (13.5-17.5) g/dL Hct 45.6 (41-53) % MCV 87.7 (80-100) fL MCH 30.7 (26-34) PG MCHC 35.0 (30-36) % RDW 12.9 (11.6-14.8) % Plt Count 209 (150-400) X10^3/uL Neut % (Auto) 67.5 (50-75) % Lymph % (Auto) 20.5 L (25-40) % Otoe % (Auto) 7.0 (3-14) % Eos % (Auto) 4.5 H (2-4) % Baso % (Auto) 0.5 (0-2) % Neut # (Auto) 5200 (1685-6449) /uL Lymph # (Auto) 1600 (0239-5757) /uL Otoe # (Auto) 500 (0-900) /uL Eos # (Auto) 300 (0-450) /uL Baso # (Auto) 0 (0-100) /uL PT 10.3 (9.4-12.5) SECONDS INR 0.9 (0.9-1.3) APTT 32 (25.1-36.5) SECONDS Sodium 138 (137-145) mmol/L Potassium 4.1 (3.4-5.1) mmol/L Chloride 101 (98-107) mmol/L Carbon Dioxide 28 (22-32) mmol/L BUN 24 H (9-20) mg/dL Creatinine 0.97 (0.66-1.25) mg/dL Estimated GFR > 60 (>60) mL/min BUN/Creatinine Ratio 24.7 H (6-22) Glucose 223 H (70-99) mg/dL Lactate 1.3 (0.7-2.1) mmol/L Calcium 8.7 (8.4-10.2) mg/dL Total Bilirubin 0.5 (0.2-1.3) mg/dL AST 29 (17-59) IU/L ALT 32 (<50) IU/L Alkaline Phosphatase 85 (38-126) U/L Total Protein 7.3 (6.3-8.2) g/dL Albumin 4.4 (3.5-5.0) g/dL Globulin 2.9 (1.7-4.1) g/dL Albumin/Globulin Ratio 1.5 (1.0-2.8) Lipase 136 (23-300) U/L Procalcitonin 0.055 (<0.5) ng/mL Imaging Data Extremity x-ray #1: Attestation: I personally reviewed and interpreted this imaging study as follows: My Impression: X-ray of the foot without evidence of acute bony injury, dislocation or lesion on independent review. Radiologist's Impression: PROCEDURE: XR FOOT LT 2V INDICATIONS: diabetic food wound/tenderness over dorsum of foot TECHNIQUE: 2 views of the foot were acquired. [facility] 9:51. FINDINGS: Bones: No fractures or dislocations. No suspicious bony lesions. Calcaneal spur. Soft tissues: No tibiotalar joint effusion. Achilles tendon appears normal. Soft tissue prominence along the plantar surface. IMPRESSION: No suspicious osseous lesions. Dictated by: Rachna Bellamy M.D. on 02/11/2025 at 13:22 [facility] Narrative Medical decision making narrative: History and exam as above. Patient presenting with foot wound and increasing pain in the left lower extremity. Differential does include diabetic foot wound or deeper infection such as osteomyelitis, deeper tracking injury. Overall exam is reassuring without systemic symptoms. No erythema or swelling to suggest overlying cellulitis. Patient also endorses bilateral lower extremity erythematous rash, without lower extremity swelling to suggest DVT. Discharge Plan Departure Prescriptions: No Action sildenafil 50 mg tablet 50 mg PO DAILY PRN (Reason: sexual activity) Qty: 30 5RF Rx Instructions: administer 30 minutes to 4 hours before activity oxycodone 5 mg tablet 5 mg PO Q6H PRN (Reason: pain) Qty: 14 0RF Rx Instructions: You may take 1-2 tablets every 6 hours as needed for pain. lisinopril 5 mg tablet 5 mg PO DAILY Qty: 90 3RF Jardiance 25 mg tablet 25 mg PO DAILY Qty: 90 3RF insulin glargine [Basaglar KwikPen U-100 Insulin] 100 unit/mL (3 mL) insulin pen 40 unit SUBCUT QPM Qty: 15 3RF Rx Instructions: took 42 units last evening mirtazapine 15 mg tablet 15 mg PO DAILY Qty: 90 3RF methocarbamol 500 mg tablet See Rx Instructions .ROUTE .COMPLEX Qty: 60 5RF Dose Instruction: TAKE 1 TABLET BY MOUTH FOUR TIMES DAILY NEEDED FOR SPASMS Rx Instructions: TAKE 1 TABLET BY MOUTH FOUR TIMES DAILY NEEDED FOR SPASMS duloxetine 60 mg capsule,delayed release(DR/EC) 60 mg PO DAILY Qty: 90 3RF rosuvastatin 10 mg tablet 10 mg PO DAILY Qty: 90 3RF meloxicam 15 mg tablet 15 mg PO DAILY Qty: 90 3RF cefuroxime axetil 500 mg tablet 500 mg PO BID Qty: 20 1RF (DME) pen needle, diabetic, safety 31 gauge x 5/16 needle See Rx Instructions .Route Qty: 100 3RF Rx Instructions: As directed to use for insulin injection daily glucagon 3 mg/actuation spray,non-aerosol 3 mg intranasal ONCE Qty: 1 0RF Rx Instructions: as a single dose tadalafil 20 mg tablet 20 mg PO DAILY PRN (Reason: sexual activity) Qty: 30 5RF Rx Instructions: administer approximately 30min before sexual activity; do not use more than 1 dose per 24hrs (DME) Glucometer See Rx Instructions .Route .MEDSUPPLY Qty: 1 0RF Rx Instructions: As directed (DME) OneTouch Verio test strips Strip See Rx Instructions .ROUTE .COMPLEX Qty: 100 3RF Dose Instruction: USE TO TEST BLOOD GLUCOSE FOUR TIMES DAILY DIRECTED Rx Instructions: USE TO TEST BLOOD GLUCOSE FOUR TIMES DAILY DIRECTED multivitamin Tablet 1 tab PO DAILY cholecalciferol (vitamin D3) 125 mcg (5,000 unit) capsule 125 mcg PO DAILY aspirin [Enteric Coated Aspirin] 81 mg tablet,delayed release (DR/EC) 81 mg PO DAILY Mounjaro 7.5 mg/0.5 mL pen injector 7.5 mg SUBCUT QWEEK Qty: 2 3RF prednisone 10 mg tablet See Rx Instructions .Route .COMPLEX Qty: 20 2RF Rx Instructions: 4 tablets daily for 2 days, then 3 tablets daily for 2 days, then 2 tablets daily for 2 days, then 1 tablet daily for 2 days then stop; triamcinolone acetonide 0.5 % Cream 1 applic topical TID Qty: 45 0RF Referrals: Chinedu Alvarez MD [Primary Care Provider, Internal Medicine]
--- NOTE | 2025-02-11 12:49 | DI.RAD.S_ITS ---
PROCEDURE: XR FOOT LT 2V INDICATIONS: diabetic food wound/tenderness over dorsum of foot TECHNIQUE: 2 views of the foot were acquired. COMPARISON: [facility], [facility], XR FOOT LT MIN 3V, 11/09/2024, 9:51. FINDINGS: Bones: No fractures or dislocations. No suspicious bony lesions. Calcaneal spur. Soft tissues: No tibiotalar joint effusion. Achilles tendon appears normal. Soft tissue prominence along the plantar surface. IMPRESSION: No suspicious osseous lesions. Dictated by: Rachna Bellamy M.D. on 02/11/2025 at 13:22 Approved by: Rachna Bellamy M.D. on 02/11/2025 at 13:24
[2025-02-11 12:52] LABS: INR 0.9 (0.9-1.3); Prothrombin Time 10.3 SECONDS (9.4-12.5)
[2025-02-11 12:55] LABS: PTT Partial Thromboplastin Tim 32 SECONDS (25.1-36.5)
[2025-02-11 12:56] LABS: Alanine Aminotransferase 32 IU/L (<50); Albumin 4.4 g/dL (3.5-5.0); Albumin Globulin Ratio 1.5 (1.0-2.8); Alkaline Phosphatase 85 U/L (38-126); Blood Urea Nitrogen 24 mg/dL (9-20); Calcium 8.7 mg/dL (8.4-10.2); Carbon Dioxide 28 mmol/L (22-32); Chloride 101 mmol/L (98-107); Estimated Glomerular Filt Rate > 60 mL/min (>60); Globulin 2.9 g/dL (1.7-4.1); Glucose 223 mg/dL (70-99); HEMOLYSIS < 15 (0-50); Lactate (Lactic Acid) 1.3 mmol/L (0.7-2.1); Lipase 136 U/L (23-300); Potassium 4.1 mmol/L (3.4-5.1); Sodium 138 mmol/L (137-145); Total Protein 7.3 g/dL (6.3-8.2)
[2025-02-11 13:13] LABS: Procalcitonin 0.055 ng/mL (<0.5)
[2025-02-11] MEDS: KETOROLAC 30 MG/ML VIAL 15 MG IM (14:34)
== END 2025-02-11 15:47 | disposition home or self-care (01) ==
PROVIDERS: Emergency Provider Student in an Organized Health Care Education/Training Program; PCP Internal Medicine
DX: E11.621 Type 2 diabetes mellitus with foot ulcer (principal); S91.302A Unspecified open wound, left foot, initial encounter
CPT/HCPCS: 36415; 71045; 73620; 80053; 81003; 83605; 83690; 84145; 85025; 85610; 85651; 85730; 86140; 87040; 87070; 87075; 87077; 87147; 87186; 87205; 93005; 93010; 96360; 96361; 96372; 99284; J1885; J7030

== ENCOUNTER → 2025-03-22 11:36 | Outpatient (CLI) | payer OTHER, SELFPAY ==
[2025-03-22 12:13] LABS: Hemoglobin A1C% w Est Avg Glu 6.3 % (4.0-6.0)
[2025-03-22 12:19] LABS: Blood Urea Nitrogen 24 mg/dL (9-20); Calcium 9.2 mg/dL (8.4-10.2); Carbon Dioxide 29 mmol/L (22-32); Chloride 103 mmol/L (98-107); Estimated Glomerular Filt Rate > 60 mL/min (>60); Glucose 176 mg/dL (70-99); HEMOLYSIS < 15 (0-50); Potassium 5.0 mmol/L (3.4-5.1); Sodium 139 mmol/L (137-145)
== END ==
PROVIDERS: PCP Internal Medicine; Referring Provider Internal Medicine; Visit Provider Internal Medicine
DX: E11.69 Type 2 diabetes mellitus with other specified complication (principal); E78.5 Hyperlipidemia, unspecified
CPT/HCPCS: 36415; 80048; 83036

== ENCOUNTER → 2025-05-03 10:47 | Outpatient (CLI) | payer OTHER, SELFPAY ==
--- NOTE | 2025-05-03 10:48 | DI.CT.S_ITS ---
PROCEDURE: CT SINUS SCREEN WO CON INDICATIONS: sinusitis TECHNIQUE: Noncontrast 3.0 mm axial images acquired from the frontal sinuses to the mid- sella, with coronal and sagittal reformats. For radiation dose reduction, the following was used: automated exposure control, adjustment of mA and/or kV according to patient size. COMPARISON: None. FINDINGS: Image quality: Excellent. Prior functional endoscopic sinus surgery. Maxillary Sinuses: No bony remodeling or destruction. Small mucous retention cyst in the right maxillary sinus. Ethmoid Air Cells: No bony remodeling or destruction. Sinuses are clear. Sphenoid Sinuses: No bony remodeling or destruction. Mild mucosal thickening in the right sphenoid sinus. Frontal Sinuses: No bony remodeling or destruction. Mild mucosal thickening in the frontal recesses and right frontal sinus. Ostiomeatal Complexes: Ostiomeatal complexes are patent. No Carmen cells. Miscellaneous: Visualized intra-orbital contents are normal. No volodymyr bullosa or paradoxical turbinate curvature. Nasal septum is deviated to the right. IMPRESSION: Prior functional endoscopic sinus surgery. Mild chronic bilateral frontal and right sphenoid sinusitis. No paranasal sinus air-fluid levels. Dictated by: Luly Jacobo MD, PhD on 05/03/2025 at 12:39 Approved by: Luly Jacobo MD, PhD on 05/03/2025 at 12:42
== END ==
PROVIDERS: PCP Internal Medicine; Referring Provider Internal Medicine; Visit Provider Internal Medicine
DX: J32.1 Chronic frontal sinusitis (principal); J32.3 Chronic sphenoidal sinusitis; J34.2 Deviated nasal septum
CPT/HCPCS: 70486